=== PATIENT | male | born 1940 | race Caucasian/White ===

== ENCOUNTER → 2017-09-21 06:51 | Outpatient (CLI) | payer MEDICARE, SELFPAY ==
--- NOTE | 2017-09-21 11:32 | STRESSREP_ITS ---
Stress Test Report Exercise myocardial perfusion stress test. 76-year-old male with a history of chest pain. Stress protocol: Resting EKG demonstrates sinus bradycardia with a rate of 51 bpm normal intervals and noted resting blood pressure is 144/68 mmHg. The patient exercised according to regular Rahat protocol for total duration of 6 minutes the maximum heart rate attained was 121 bpm which was 84% of maximum predicted heart rate maximum workload of 7 metabolic equivalents. At rest there were no ST or T-wave changes noticed ischemia peak exercise upsloping ST changes were noted would not be the criteria for ischemia. The resting blood pressure is 144 /68 with a peak blood pressure 172/70 mmHg. No clinical angina was noted the test was terminated due to shortness of breath and leg fatigue. Myocardial perfusion protocol. 14.8 mCi of technetium 99m sestamibi was injected at rest. The patient exercised for regular Rahat protocol for 6 minutes attaining 84% of maximum predicted heart rate. At peak exercise 44.8 mCi of technetium 99m sestamibi was injected. Stress images were obtained stress and rest images were reconstructed and compared in the short axis vertical long and horizontal long axis. Gated images were also obtained. Perfusion SPECT analysis: Review of the stress images demonstrate normal uptake of tracer noted in all areas of the myocardium. The resting images similarly demonstrate normal uptake of tracer noted in all areas of the myocardium. No areas of reversibility are noted suggest ischemia no previous infarct is noted. Gated SPECT analysis: The gated ejection fraction is 71%. Conclusion: Normal exercise myocardial perfusion stress test. Good functional aerobic capacity. Preserved ejection fraction.
== END ==
PROVIDERS: Family Provider Internal Medicine; PCP Internal Medicine; Visit Provider Internal Medicine Cardiovascular Disease
DX: Z95.5 Presence of coronary angioplasty implant and graft (principal)
CPT/HCPCS: 78452; 93017; A9500; A4216

== ENCOUNTER → 2019-11-08 | Outpatient (CLI) | payer MEDICARE, SELFPAY ==
[2019-09-27 09:02] VITALS: BMI 30.7
[2019-11-08 10:17] LABS: Protein, Urine (Random) 155.4 mg/dL (<11.9); Protein:Creat Ratio 1904 mg/g CRE (0-200)
== END | disposition home or self-care (01) ==
LOC: LAB 09:28
PROVIDERS: PCP Internal Medicine; Referring Provider Internal Medicine Nephrology; Visit Provider Internal Medicine Nephrology
DX: R80.9 Proteinuria, unspecified (principal)
CPT/HCPCS: 82570; 84156

== ENCOUNTER 2019-11-14 06:20 | Day surgery (SDC) | payer MEDICARE, SELFPAY ==
[2019-09-27 09:02] VITALS: BMI 30.7
--- NOTE | 2019-11-08 09:40 | EKG12_ITS ---
Test Reason : PREOP Blood Pressure : / mmHG Vent. Rate : 057 BPM Atrial Rate : 057 BPM P-R Int : 194 ms QRS Dur : 092 ms QT Int : 420 ms P-R-T Axes : 030 002 044 degrees QTc Int : 408 ms Sinus bradycardia Left ventricular hypertrophy Abnormal ECG Confirmed by JAMIL ACOSTA, HEBERT ([id number]), video tape editor NEO LIGHT ([id number]) on 11/12/2019 1:47:21 PM Referred By: Guero Andrews Confirmed By:LEIGHTON NEGRON MD
[2019-11-08 09:56] LABS: Hemoglobin 13.6 g/dL (13.0-16.5); Mean Corp Hgb Conc 34.9 g/dL (32-36); Mean Corpuscular Hgb 33.4 pg (27.0-32.0); Mean Corpuscular Volume 95.8 fL (80-94); Mean Platelet Vol. 9.8 fl (6.2-12.0); Platelet Count 333 K/mm3 (150-450); RBC Distribution Width CV 12.2 % (11.6-14.6); RBC Distribution Width SD 42.2 fl (35.1-43.9); Red Blood Count 4.07 M/mm3 (4.6-6.2); White Blood Count 8.2 K/mm3 (4.4-11.0)
[2019-11-08 10:12] LABS: Prothrombin Time (Protime)PT. 13.1 SECONDS (11.7-14.9)
[2019-11-08 10:13] LABS: Partial Thromboplast Time 27.6 Seconds (24.1-36.2)
[2019-11-08 10:14] LABS: AST(SGOT) 23 U/L (15-37); Alanine Aminotransfer ALT/SGPT 34 U/L (16-61); Alkaline Phosphatase 63 U/L (45-117); Anion Gap 4 (5-15); BUN 11 mg/dL (7-18); BUN/Creat Ratio 12.7 RATIO (10-20); Calcium,Total 9.6 mg/dL (8.5-10.1); Chloride 98 mmol/L (98-107); Creatinine, Serum 0.86 mg/dL (0.70-1.30); EST Glomerular Filtration Rate 91 mL/min (>60); Est Glom Filt Rate - Afr Amer 110 mL/min (>60); Globulin 3.7 g/dL (2.2-4.2); Glucose 113 mg/dL (74-106); Potassium 4.4 mmol/L (3.5-5.1); Protein, Total 7.7 g/dL (6.4-8.2); Sodium Level 133 mmol/L (136-145)
[2019-11-14] VITALS (14 sets, daily range): BP systolic 127–158; BP diastolic 55–74; PULSE 50–63; RESP 16–18; TEMP 36.2–37.1; O2SAT 96–99; BMI 30.7
--- NOTE | 2019-11-14 | PROS_PTH ---
PATIENT: DEX BAEZ LOC: [facility] [place] U#:[id number] AGE/SX: 79/M ROOM: RE11/14/[address]: Dr. Guero Andrews MD : 1940 BED: DIS: 11/15/2019 SPEC #: [id number] RECD: 11/14/19 10:22 STATUS: EDD SANTIAGO #: [id number] MYNOR: 11/14/19 00:[address]: Guero Andrews DEPT: SURGICAL PATHOLOGY RECD BY: Eric Viveros ENTERED: 11/14/19 12:11 SP TYPE: TURP OTHR DR: Dr. Brittany Combs MD Tissues: Prostate, NOS Procedures: Surgery Specimen Level IV HEADER OPERATION: Cysto, TUR prostate, Olympus PRE-OP DIAGNOSIS: BPH with obstruction TISSUE SUBMITTED: Prostate chips MICROSCOPIC DIAGNOSIS Prostate, transurethral resection: Benign nodular hyperplasia, glandular and stromal types. Mild chronic inflammation. AM:harry 11/15/19 MICROSCOPIC DESCRIPTION Slides are reviewed. GROSS DESCRIPTION Received is one container labeled with the patient's name and designated prostate chips. The specimen consists of multiple irregular fragments of pink-aragon, rubbery, soft tissue that in aggregate weigh 17.3 gm and measure in aggregate 7 x 6 x 2 cm. Multiple blood clots are also noted. Jewelry Manager tissue is submitted in 12 cassettes. / SJ:harry 11/14/19 TC:3 CPT: 84541
[2019-11-14] MEDS: Lactated Ringers 1,000 ML 100 ML IV ×2 (07:25→09:30)
[2019-11-14] MEDS: Cefazolin 2 GM in 0.9% Normal Saline 100 ML IV (08:26)
--- NOTE | 2019-11-14 08:28 | HP.PCM_ITS ---
History of Present Illness Date of Admission: 11/14/19 Chief Complaint: BPH with obstruction The patient is a 79 year old male with a history of enlarged prostate has been having difficulty emptying his bladder on cystoscopy was found to have significant bilateral hypertrophy and obstruction of the prostate. He has been having difficulty with emptying the bladder going to the bathroom too often retaining urine reports having a very slow stream because of this we can proceed with a transurethral resection of the prostate to alleviate obstruction Past Medical History Past Medical History (Chronic Problems): Chronic Problems (Last Reviewed 09/27/19 @ 10:[address] Allan Mcpherson MD) Atherosclerotic heart disease of [place] coronary artery without angina pectoris (Chronic) History of coronary artery stent placement (Chronic 05/09/13) PCI-YOGESH-MID RCA w/ 3.5 x 16 mm Promus Stent 05/09/2013 PAF (paroxysmal atrial fibrillation) (Chronic) Essential (primary) hypertension (Chronic) Hyperlipidemia (Chronic) Medical History: Medical History (Last Reviewed 11/14/19 @ 08:[address] Guero Andrews MD) Atherosclerotic heart disease of [place] coronary artery without angina pectoris (Chronic) I25.10 PAF (paroxysmal atrial fibrillation) (Chronic) I48.0 Essential (primary) hypertension (Chronic) I10 Hyperlipidemia (Chronic) E78.5 BPH (benign prostatic hyperplasia) N40.0 ETOH abuse F10.10 GAVINO (obstructive sleep apnea) G47.33 Obesity (BMI 30.0-34.9) E66.9 Proteinuria R80.9 Seizures R56.9 Nonrheumatic mitral valve regurgitation (Resolved) I34.0 Overweight (BMI 25.0-29.9) (Resolved) E66.3 Allergies hydrocodone bitartrate [From Vicodin] Allergy (Verified 11/14/19 06:52) Itching chlorhexidine Adverse Reaction (Verified 11/14/19 06:52) Unknown Home Medications: Ambulatory Orders Medication Instructions Recorded Aspirin E.C. [Ecotrin] 81 mg PO DAILY@0800 05/07/13 Fenofibrate [Lofibra] 160 mg PO DAILY 05/07/13 Simvastatin [Zocor] 20 mg PO QHS 05/07/13 Ascorbic Acid [Vitamin C] 500 mg PO DAILY@0800 11/14/14 Multivitamins,Therapeutic 1 tab PO DAILY 11/14/14 [Multivitamin] Selenium 200 mcg PO DAILY 11/14/14 Vitamin B Complex 1 ea PO DAILY 11/14/14 Vitamin E 400 units PO DAILY 11/14/14 amlodipine 10 mg tablet 10 mg PO QDAY 09/12/17 cholecalciferol (vitamin D3) 25 1,000 unit PO QDAY 09/12/17 mcg (1,000 unit) tablet lacosamide 50 mg tablet 50 mg PO BID 09/12/17 metoprolol succinate 100 mg 100 mg PO QDAY 09/12/17 tablet,extended release 24 hr omega-3 fatty acids 1,000 mg See Rx Instructions .ROUTE 09/15/17 capsule .COMPLEX cap losartan 100 mg tablet 100 mg PO DAILY 09/26/18 hydrochlorothiazide 12.5 mg tablet 12.5 mg PO DAILY #90 tab 09/27/19 L.acidoph,Paracasei, B.lactis 1 ea PO DAILY 11/07/19 [Probiotic] Surgical History: Surgical History (Last Reviewed 09/27/19 @ 10:[address] Allan Mcpherson MD) History of coronary artery stent placement (Chronic) Onset Date: 05/09/13 Z95.5 PCI-YOGESH-MID RCA w/ 3.5 x 16 mm Promus Stent 05/09/2013 History of hernia repair Z98.890, Z87.19 x2 History of surgery on arm Z98.890 repair of arm fracture with plates History of transurethral resection of prostate Z98.890, Z90.79 Surgical History: - - PCI, TURP, LUE surgery s/p trauma, Umbilical hernia repair. Psychiatric History: No pertinent psych hx Smoking Status: Former smoker Tobacco Use: Non-smoker - *Family History Maternal Family History: Family History (Last Reviewed 09/27/19 @ 10:[address] Allan Mcpherson MD) Mother CVA (cerebral vascular accident) Father CAD (coronary artery disease) Myocardial infarction Brother Myocardial infarction CAD (coronary artery disease) Hypertension Sister CAD (coronary artery disease) Hypertension History Items: Heart Disease Paternal Family History: Family History (Last Reviewed 09/27/19 @ 10:[address] Allan Mcpherson MD) Mother CVA (cerebral vascular accident) Father CAD (coronary artery disease) Myocardial infarction Brother Myocardial infarction CAD (coronary artery disease) Hypertension Sister CAD (coronary artery disease) Hypertension History Items: Heart Disease Review of Systems Constitutional: Denies: Chills, Fever, Weight Change HEENT: Denies: Head Aches, Sinus Congestion, Sinus Drainage Cardiovascular: Denies: Chest Pain, Palpitations Respiratory: Denies: Cough, Shortness of breath at rest, Sputum production Gastrointestinal: Denies: Abdominal Pain, Nausea, Vomiting Genitourinary: Denies: Dysuria Musculoskeletal: Denies: Joint Pain, Joint Tenderness Skin: Denies: Rash, Wounds Neurological: Denies: Numbness, Tingling, Focal weakness Psychiatric: Denies: Anxiety, Depression, Homicidal Ideations, Suicidal Ideations Hematologic/ Lymphatic: Denies: Easy Bruising, Easy Bleeding VTE Information - Inpt Only VTE Present on Admission: No VTE Mechan Device Prophylaxis: SCD's - Physical Exam Vitals/I&O's: Vital Signs Temp Pulse Resp BP Pulse Ox 98.2 F 51 L 18 146/74 H 97 11/14/19 06:57 11/14/19 06:57 11/14/19 06:57 11/14/19 06:57 11/14/19 06:57 Oxygen Delivery Method Room Air Weight: 94.4 kg Body Mass Index (BMI) 30.7 General: Alert, Oriented x3, Cooperative HEENT: Atraumatic, PERRLA, EOMI, Normocephalic Neck: Supple, No JVD, Negative Carotid Bruits Lungs: Clear to auscultation, Normal air movement Cardiovascular: Regular rate, No murmurs Abdomen: Bowel Sounds Present, Soft, Non Tender Extremities: No edema, Capillary Refill Less than 3 Seconds Skin: No rashes, No breakdown Musculoskeletal: No Tenderness to Palpation of Joints or Extremities Neurological: Cranial nerves II-XII grossly intact Psych/Mental Status: Normal Affect, Appropriate Laboratory Results 11/13/19 09:32: COVID-19 (KEVON) Negative Current Medications Lactated Ringer's () 1,000 mls @ 100 mls/hr IV .Q10H PATTI Last Admin: 11/14/19 07:25 Dose: 100 mls/hr Documented by: Assessment/Plan All Active Problems (Last Reviewed 09/27/19 @ 10:[address] Allan Mcpherson MD) Nonrheumatic mitral valve regurgitation (Resolved) Overweight (BMI 25.0-29.9) (Resolved) 79-year-old male with a history of enlarged prostate plan to proceed with a transurethral resection of the prostate. All questions addressed explained the surgery to his in the patient in the preoperative area answer all the questions discussed how the surgery is done with expect afterwards.
--- NOTE | 2019-11-14 08:30 | PCM.DC.URO ---
Discharge Diet: No Restrictions, Light diet - advance as tolerated Discharge Activity: Return to Normal Activity, May Not Drive - for 2 days. Additional Activity Instructions:: Please be aware that pain medications may cause nausea. You should typically eat light foods as you take your pain medication. Pain medication may cause constipation, if this is a problem for you, please discuss with your doctor. Allergies/Adverse Reactions: Allergies hydrocodone bitartrate [From Vicodin] Allergy (Verified 11/14/19 06:52) Itching chlorhexidine Adverse Reaction (Verified 11/14/19 06:52) Unknown Medications to take at Discharge Aspirin E.C. [Ecotrin] 81 mg PO DAILY@0800 05/07/13 Fenofibrate [Lofibra] 160 mg PO DAILY 05/07/13 Simvastatin [Zocor] 20 mg PO QHS 05/07/13 Ascorbic Acid [Vitamin C] 500 mg PO DAILY@0800 11/14/14 Multivitamins,Therapeutic [Multivitamin] 1 tab PO DAILY 11/14/14 Selenium 200 mcg PO DAILY 11/14/14 Vitamin B Complex 1 ea PO DAILY 11/14/14 Vitamin E 400 units PO DAILY 11/14/14 amlodipine 10 mg tablet 10 mg PO QDAY 09/12/17 cholecalciferol (vitamin D3) 25 mcg (1,000 unit) tablet 1,000 unit PO QDAY 09/12/17 lacosamide 50 mg tablet 50 mg PO BID 09/12/17 metoprolol succinate 100 mg tablet,extended release 24 hr 100 mg PO QDAY 09/12/17 omega-3 fatty acids 1,000 mg capsule See Rx Instructions .ROUTE .COMPLEX cap 09/15/17 losartan 100 mg tablet 100 mg PO DAILY 09/26/18 hydrochlorothiazide 12.5 mg tablet 12.5 mg PO DAILY #90 tab 09/27/19 L.acidoph,Paracasei, B.lactis [Probiotic] 1 ea PO DAILY 11/07/19 Cephalexin [Keflex] 500 mg PO Q8 #15 cap 11/14/19 The following prescriptions were given: Cephalexin [Keflex] 500 mg PO Q8 #15 cap Transmission Status: Pending to [facility] Primary Care Physician: Brittany Combs MD [Primary Care Provider] - Test Results: Test results from this visit will be discussed in further detail at your follow-up appointment, if applicable. Please Follow Up With: Guero Andrews MD When: in 2 weeks, please call to make an appointment.
--- NOTE | 2019-11-14 09:21 | PCM.OPRPT ---
Report of Operation Date of Procedure: 11/14/19 Pre-Operative Diagnosis: BPH with obstruction Post-Operative Diagnosis: Same Surgery/Procedure Performed:: Transurethral section of the prostate Description of Surgical Findings:: 79-year-old male taken back to the operating room after smooth induction of general anesthesia he was placed in dorsolithotomy position. The penis and testicles were prepped and draped in usual sterile fashion I went into the bladder with a 24 [place] noncontinuous flow resectoscope with the Olympus bipolar system. On inspection it looks like he may have had a prior TURP a long time ago but he had significant regrowth from the right side and from the roof of the prostate causing significant obstruction. I then put in the resectoscope loop to use a medium size loop and started resecting the tissue by cutting through the tissue back into the loop small pieces of the time I worked my way from the floor to the right side of the prostate and all the way to the roof resecting all the tissue all the way back after this tissue was resected it came to the back to the sphincter the sphincter was intact but has a pulled back of the sphincter there was some flapping tissue of tissue that was coming in the way so this was very carefully resected at the apical tissue after this was done I did a flow test he had a wide open flow went back in and looked at the sphincter and the sphincter looked intact. This resection time was about an hour. I then used a cauterization setting and cauterize into the prostate until there was no bleeding and then I put a 24 [place] catheter into the bladder and continuous bladder irrigation the patient was taken back to PACU in good condition. Type of Anesthesia:: General Drains: 24 fr - Admit VTE Documentation VTE Present on Admission: No VTE Mechan Device Prophylaxis: SCD's
[2019-11-14] MEDS: 0.9% Normal Saline 1,000 ML 75 ML IV (12:02)
[2019-11-14] MEDS: Pantoprazole Sodium 40 MG Tablet PO (12:02)
[2019-11-14] MEDS: Docusate Sodium 100 MG Capsule PO ×2 (12:02→20:06)
[2019-11-14] MEDS: Acetaminophen 325 MG Tablet PO (19:58)
[2019-11-14] MEDS: Atorvastatin Calcium 10 MG Tablet PO (20:06)
[2019-11-15 00:03] VITALS: BP 120/53; PULSE 56; RESP 18; TEMP 36.9; O2SAT 98
[2019-11-15] MEDS: 0.9% Normal Saline 1,000 ML 75 ML IV (01:08)
[2019-11-15 05:17] VITALS: BP 143/63; PULSE 55; RESP 18; TEMP 36.8; O2SAT 99
[2019-11-15 08:15] VITALS: BP 155/58; PULSE 59; RESP 16; TEMP 36.8; O2SAT 98
[2019-11-15] MEDS: Ascorbic Acid 500 MG Tablet PO (08:22)
[2019-11-15] MEDS: Fenofibrate 145 MG Tablet PO (08:22)
[2019-11-15] MEDS: Docusate Sodium 100 MG Capsule PO (08:23)
[2019-11-15] MEDS: amLODIPine 10 MG Tablet PO (08:23)
[2019-11-15] MEDS: Pantoprazole Sodium 40 MG Tablet PO (08:23)
[2019-11-15] MEDS: Losartan Potassium 100 MG Tablet PO (08:23)
[2019-11-15] MEDS: hydroCHLOROthiazide 12.5mg 12.5 MG PO (08:23)
[2019-11-15 10:30] VITALS: BP 153/60; PULSE 59; RESP 16; TEMP 37.1; O2SAT 100
== END 2019-11-15 10:43 | disposition home or self-care (01) ==
LOC: SDC 06:21 → AC 06:22 → MS3 11-15 09:11
PROVIDERS: Anesthesiology; PCP Internal Medicine; Referring Provider Urology; Visit Provider Urology
PROC: (CPT 52630; principal; 2019-11-14 08:20)
DX: N40.1 Benign prostatic hyperplasia with lower urinary tract symptoms (principal); N13.8 Other obstructive and reflux uropathy; R31.0 Gross hematuria; R39.14 Feeling of incomplete bladder emptying; Z11.59 Encounter for screening for other viral diseases; I25.10 Atherosclerotic heart disease of native coronary artery without angina pectoris; I48.0 Paroxysmal atrial fibrillation; I10 Essential (primary) hypertension; E66.9 Obesity, unspecified; Z68.30 Body mass index [BMI] 30.0-30.9, adult; G47.33 Obstructive sleep apnea (adult) (pediatric); E78.00 Pure hypercholesterolemia, unspecified; Z95.5 Presence of coronary angioplasty implant and graft; Z79.82 Long term (current) use of aspirin; Z79.899 Other long term (current) drug therapy; Z87.891 Personal history of nicotine dependence
CPT/HCPCS: 52630; 36415; 80048; 80076; 85027; 85610; 85730; 87635; 88305; 93005; G2023; J7030; J7120; J2405; U0003

== ENCOUNTER 2020-03-06 03:38 | Emergency (ER) | payer MEDICARE, SELFPAY ==
[2019-11-14 11:38] VITALS: BMI 30.7
[2020-03-06 03:39] VITALS: BP 171/80; PULSE 73; RESP 18; TEMP 36.6; O2SAT 98; BMI 30.6
[2020-03-06 03:46] VITALS: BP 165/76; PULSE 70; RESP 16; O2SAT 99
--- NOTE | 2020-03-06 03:49 | EKG12_ITS ---
Test Reason : CP Blood Pressure : / mmHG Vent. Rate : 067 BPM Atrial Rate : 067 BPM P-R Int : 204 ms QRS Dur : 090 ms QT Int : 390 ms P-R-T Axes : 025 -09 018 degrees QTc Int : 412 ms Normal sinus rhythm Possible Left atrial enlargement Left ventricular hypertrophy Abnormal ECG Confirmed by DAVID ACOSTA, HERBERT ([id number]), city editor WU ARCINIEGA ([id number]) on 03/11/2020 1:01:13 PM Referred By: HOSSEIN Confirmed By:HERBERT HERNANDEZ MD
--- NOTE | 2020-03-06 03:50 | ED.VIS.GEN ---
History of Present Illness Chief Complaint: General Illness Informant: Patient, Family Onset: Today Narrative: Patient presents by EMS secondary to shaking and hypertension. Patient states his felt like he was shaking this morning. He thinks he likely was as well, but is not sure that it was enough to even visualize trembling. Right now he states he feels back to his baseline. He denies any recent changes in his medications. He does have history of seizure, first diagnosed in 2014. He has been on Keppra since that time. He is had no problems since his initial seizure. Her arrived at bedside she states that she woke to hear patient making chewing sounds. This was followed by tonic-clonic seizure activity in both upper extremities. She tried to help him sit up. She then describes a postictal period. She states the patient is currently on Vimpat for seizures. He has not seen a neurologist in quite some time. - Past Medical History (1) Seizures Status: Chronic (2) Atherosclerotic heart disease of [place] coronary artery without angina pectoris Status: Chronic (3) Essential (primary) hypertension Status: Chronic (4) History of coronary artery stent placement Status: Chronic Comment: PCI-YOGESH-MID RCA w/ 3.5 x 16 mm Promus Stent 05/09/2013 (5) Hyperlipidemia Status: Chronic (6) PAF (paroxysmal atrial fibrillation) Status: Chronic Past Medical History - Allergies and Home Meds Allergies/Adverse Reactions: Allergies hydrocodone bitartrate [From Vicodin] Allergy (Verified 03/06/20 03:42) Itching chlorhexidine Adverse Reaction (Verified 03/06/20 03:42) Unknown Primary Care Physician: Brittany Combs MD [Primary Care Provider] - Marlo Smith MD [STAFF PHYSICIAN] - As soon as possible Prior records reviewed: Yes Surgical History: - - PCI, TURP, LUE surgery s/p trauma, Umbilical hernia repair. Lives: Spouse/ Significant Other Smoking Status: Never smoker - Family History Maternal Family History: Family History (Last Reviewed 09/27/19 @ 10:[address] Allan Mcpherson MD) Mother CVA (cerebral vascular accident) Father CAD (coronary artery disease) Myocardial infarction Brother Myocardial infarction CAD (coronary artery disease) Hypertension Sister CAD (coronary artery disease) Hypertension Family History: Reports: Heart Disease Paternal Family History: Family History (Last Reviewed 09/27/19 @ 10:[address] Allan Mcpherson MD) Mother CVA (cerebral vascular accident) Father CAD (coronary artery disease) Myocardial infarction Brother Myocardial infarction CAD (coronary artery disease) Hypertension Sister CAD (coronary artery disease) Hypertension Family History: Reports: Heart Disease Review of Systems General: Denies: Chills, Fever Eyes: Denies: Visual changes - bilaterally ENT: Denies: Rhinorrhea, Sore throat Cardiovascular: Denies: Chest pain, Palpitations Respiratory: Denies: Dyspnea, Cough Gastrointestinal: Denies: Abdominal pain, Nausea, Vomiting, Diarrhea Genitourinary: Denies: Dysuria Musculoskeletal: Denies: Swelling, Extremity Pain Skin: Denies: Rash Neurological: Denies: Headache Hematologic: Denies: Easy bruising, Easy bleeding Allergy: Denies: Uticaria Physical Exam Vital Signs/Narrative: Vital Signs Temp Pulse Resp BP Pulse Ox 03/06/20 03:46 70 16 165/76 H 99 03/06/20 03:39 97.8 F 73 18 171/80 H 98 Inital Vital Signs reviewed: Yes General: Well nourished, Well developed Head: Normocephalic ENT: Moist mucous membranes Neck: Supple Cardiovascular: Regular rate, Regular rhythm Respiratory: No distress, CTA bilaterally Abdomen: Soft, Nontender, Normal bowel sounds Extremities: Nontender Skin: Normal color Neurological: Alert, Oriented x3, Normal Strength, Normal Sensation Psychological: Normal affect Diagnostic/Tx/Re-eval Impressions Brain CT 03/06/20 04:18 IMPRESSION: Chronic involutional changes of the brain. Disproportionate enlargement of the ventricles, consistent with central atrophy or normal pressure hydrocephalus. The finding is stable. No demonstrated acute intracranial process. Electronically Signed: Jeffery Funes MD at 4:58 EDT , Service support , 03/06/20 04:18 Brain/Head without Contrast [CT] Stat Laboratory Results 03/06/20 03/06/20 03/06/20 03:45 03:45 03:55 WBC 7.9 RBC 4.65 Hgb 15.1 Hct 42.9 MCV 92.3 MCH 32.5 H MCHC 35.2 RDW Std Deviation 40.9 RDW Coeff of Angy 12.0 Plt Count 297 MPV 9.4 Immature Gran % (Auto) 0.400 Neut % (Auto) 70.3 H Lymph % (Auto) 16.1 L Ceiba % (Auto) 10.4 H Eos % (Auto) 2.2 Baso % (Auto) 0.6 Absolute Neuts (auto) 5.5 Absolute Lymphs (auto) 1.26 Nucleated RBC % 0 Sodium 131 L Potassium 4.0 Chloride 96 L Carbon Dioxide 27.0 Anion Gap 8 BUN 15 Creatinine 0.96 Estim Creat Clear Calc 64.42 Est GFR (MDRD) Af Amer 97 Est GFR (MDRD) Non-Af 80 BUN/Creatinine Ratio 15.6 Glucose 122 H Calcium 9.3 Urine Color Yellow Urine Clarity Clear Urine pH 7.0 Ur Specific [place] 1.015 Urine Protein 100 H Urine Glucose (UA) Normal Urine Ketones Negative Urine Occult Blood 10 H Urine Nitrite Negative Urine Bilirubin Negative Urine Urobilinogen Normal Ur Leukocyte Esterase Negative Urine RBC 0-5 SEEN Urine WBC 0 SEEN Ur Squamous Epith Cells 0 SEEN Urine Bacteria 0 SEEN Urine Mucus 0 SEEN - EKG Initial EKG Interpretation: Sinus Rhythm - Sinus at 67 with no acute ischemia. - Medical Decision Making After patient's arrived she did confirm patient had what sounds like another seizure tonight. He had typical postictal period. At this time he is completely back to baseline. Work-up was unremarkable. He will continue his current seizure medication and I will refer him to Dr. Smith for local neurology outpatient follow-up. It is noted that the patient's sodium is slightly low. When compared to prior values this appears to be near his baseline. He was given IV fluids here. ED Disposition - Plan for ED Patient: Disposition: Home or Assisted Living Diagnosis: Seizure Instructions: ED Seizure Recurrent Adult Referrals: Brittany Combs MD [Primary Care Provider] - Marlo Smith MD [STAFF PHYSICIAN] - As soon as possible
--- NOTE | 2020-03-06 03:50 | ED.RN ---
RN CALLED FOR EKG, PULLED OLD EKGS FOR
[2020-03-06 04:04] LABS: Bacteria 0 SEEN /hpf (None Seen); Mucous, Urine 0 SEEN /hpf (<or=2+); Squamous Epithelial Cells - UA 0 SEEN /hpf (0-5); White Blood Cells 0 SEEN /hpf (0-5)
[2020-03-06 04:07] LABS: Color, Urine Yellow (Yellow); Glucose, Dipstick Normal (Normal); Ketone-Dipstick Negative (Negative); Leukocyte Esterase-Dipstick Negative /ul (Negative); Nitrite-Dipstick Negative (Negative); Occult Blood-Urine 10 /ul (Negative); Protein-Dipstick 100 mg/dl (Negative); Specific Gravity, Urine 1.015 (1.002-1.030); Urine Bilirubin Dipstick Negative (Negative); Urine Clarity Clear (Clear); Urine Urobilinogen Normal (Normal)
[2020-03-06 04:07] LABS: Absolute Lymphocyte Count 1.26 X10^3/uL (0.83-4.51); Absolute Neutrophil Count 5.5 X10^3/uL (2.0-7.7); Basophil# 0.05 X10^3/uL; Basophil% 0.6 % (0-1); Eosinophil# 0.17 X10^3/uL; Eosinophils% 2.2 % (0-5); Hematocrit 42.9 % (40-54); Hemoglobin 15.1 g/dL (13.0-16.5); Lymphocyte # 1.26 X10^3/ul (4.0); Lymphocyte % 16.1 % (19-41); Mean Corp Hgb Conc 35.2 g/dL (32-36); Mean Corpuscular Hgb 32.5 pg (27.0-32.0); Mean Corpuscular Volume 92.3 fL (80-94); Mean Platelet Vol. 9.4 fl (6.2-12.0); Monocyte# 0.82 X10^3/uL; Monocyte% 10.4 % (0-10); NRBC Flagged by Analyzer 0 % (0-5); Neutrophil # 5.52 X10^3/uL (2.7-7.7); Neutrophil % 70.3 % (47-70); Platelet Count 297 K/mm3 (150-450); RBC Distribution Width SD 40.9 fl (35.1-43.9); Red Blood Count 4.65 M/mm3 (4.6-6.2); White Blood Count 7.9 K/mm3 (4.4-11.0)
[2020-03-06] MEDS: 0.9% Normal Saline 1,000 ML 150 ML IV (04:07)
[2020-03-06 04:13] LABS: Anion Gap 8 (5-15); BUN 15 mg/dL (7-18); BUN/Creat Ratio 15.6 RATIO (10-20); Calcium,Total 9.3 mg/dL (8.5-10.1); Chloride 96 mmol/L (98-107); Creatinine, Serum 0.96 mg/dL (0.70-1.30); EST Glomerular Filtration Rate 80 mL/min (>60); Est Glom Filt Rate - Afr Amer 97 mL/min (>60); Estimated Creatinine Clearance 64.42 ml/min; Glucose 122 mg/dL (74-106); Sodium Level 131 mmol/L (136-145)
[2020-03-06 04:14] LABS: Red Blood Cells-Urine 0-5 SEEN /hpf (0-5)
--- NOTE | 2020-03-06 04:18 | CT_ITS ---
STUDY: CT BRAIN WITHOUT CONTRAST REASON FOR EXAM: Male, 79 years old. SEIZURE. Pt has hx of seizures. afib, HTN, HLD and heart stents RADIATION DOSAGE (If Supplied By Facility): CTDIvol = ( 44.99 ) mGy, DLP = ( 863.60 ) mGycm TECHNIQUE: Transaxial CT imaging of the brain was performed without administration of intravenous contrast material. Individualized dose optimization techniques were used for this CT. COMPARISON: CT scan brain 11/14/2014. FINDINGS: Normal soft tissue structures. Normal calvarium. There is mild diffuse cerebral atrophy. There is disproportionate enlargement of the ventricles, similar to previous exam. This may be due to central atrophy or normal pressure hydrocephalus. There are areas of decreased attenuation within the white matter tracts of the supratentorial brain, consistent with microvascular disease changes. Normal basal ganglia and thalami. Normal brainstem. There is mild cerebellar atrophy. There is atherosclerotic calcification of the cavernous carotid arteries. There is no intracranial hemorrhage. There are no findings of an acute ischemic infarction. Normal visualized paranasal sinuses. CT/Brain/Head without Contrast IMPRESSION: Chronic involutional changes of the brain. Disproportionate enlargement of the ventricles, consistent with central atrophy or normal pressure hydrocephalus. The finding is stable. No demonstrated acute intracranial process. Electronically Signed: Jeffery Funes MD at 4:58 EDT , Service support ,
[2020-03-06 05:14] VITALS: BP 162/73; PULSE 70; RESP 16; O2SAT 98
== END 2020-03-06 05:22 | disposition home or self-care (01) ==
PROVIDERS: Emergency Provider Emergency Medicine; PCP Internal Medicine
DX: R56.9 Unspecified convulsions (principal); I48.0 Paroxysmal atrial fibrillation; I25.10 Atherosclerotic heart disease of native coronary artery without angina pectoris; I10 Essential (primary) hypertension; E78.5 Hyperlipidemia, unspecified; Z95.5 Presence of coronary angioplasty implant and graft; Z79.899 Other long term (current) drug therapy
CPT/HCPCS: 70450; 80048; 81001; 85025; 93005; 96360; 99285; J7030; J7040; A4216

== ENCOUNTER → 2020-04-22 08:40 | Outpatient (CLI) | payer MEDICARE, SELFPAY ==
--- NOTE | 2020-04-22 08:51 | CDU_ITS ---
Reason For Study: Carotid artery stenosis Rt. Velocities/BP Lt. Velocities/BP Prox CCA 57.8/6.9 cm/sec. Prox CCA 101.1/12.6 cm/sec. Mid CCA 64.3/10.8 cm/sec. Mid CCA 79/6.5 cm/sec. Dist CCA 70.8/12.1 cm/sec. Dist CCA 67.9/9 cm/sec. Prox ICA 59.7/5.8 cm/sec. Prox ICA 54.2/9.1 cm/sec. Mid ICA 60.8/13.5 cm/sec. Mid ICA 56/11.6 cm/sec. Dist ICA 64.1/12.4 cm/sec. Dist ICA 62.6/16.3 cm/sec. Rt. ICA/CCA = 1.0. Lt. ICA/CCA = 0.8. Prox ECA 91.5/3.6 cm/sec. Prox ECA 88.8/9 cm/sec. Rt. Vert. 29.1/6.4 cm/sec. Lt. Vert. 40.9/7.8 cm/sec. Right Extracranial There is homogeneous, smooth atherosclerotic plaque noted in the right common carotid artery. There is heterogeneous, irregular atherosclerotic plaque noted in the right internal carotid artery. There is intimal thickening but no significant atherosclerotic plaque noted in the right external carotid artery. Antegrade flow is noted in the right vertebral artery. Left Extracranial There is homogeneous, smooth atherosclerotic plaque noted in the left common carotid artery. There is heterogeneous, irregular atherosclerotic plaque noted in the left internal carotid artery. There is intimal thickening but no significant atherosclerotic plaque noted in the left external carotid artery. Antegrade flow is noted in the left vertebral artery. Procedure Carotid Duplex [id number]. This is a Carotid Duplex examination using B-mode, color flow and specral Doppler. Exam performed in department. Interpretation Summary Mild (<50%) stenosis right extracranial internal carotid. Mild (<50%) stenosis left extracranial internal carotid. Flow within the vertebral arteries is antegrade bilaterally. Ordering Physician: Brittany Combs Referring Physician: Brittany Combs Performed By: Susan Lo RVT
== END ==
PROVIDERS: PCP Internal Medicine; Referring Provider Internal Medicine; Visit Provider Internal Medicine
DX: I65.23 Occlusion and stenosis of bilateral carotid arteries (principal)
CPT/HCPCS: 93880

== ENCOUNTER → 2020-06-30 05:58 | Outpatient (CLI) | payer MEDICARE, SELFPAY ==
[2020-05-27 08:22] VITALS: BMI 30.8
--- NOTE | 2020-06-30 08:50 | TELEMED_ITS ---
[facility] Tele[facility] has confirmed receipt of a request for visit. This document confirms receipt of the order initiating the consult. To find the results of the consultation, please view the patient's reports for the scanned Telemed Consult.
== END ==
PROVIDERS: PCP Internal Medicine; Referring Provider Psychiatry & Neurology Neurology; Visit Provider Psychiatry & Neurology Neurology
DX: G40.909 Epilepsy, unspecified, not intractable, without status epilepticus (principal); E87.1 Hypo-osmolality and hyponatremia; R73.9 Hyperglycemia, unspecified
CPT/HCPCS: 95819

== ENCOUNTER → 2020-08-12 07:33 | Outpatient (CLI) | payer MEDICARE, SELFPAY ==
[2020-05-27 08:22] VITALS: BMI 30.8
[2020-08-12 08:16] LABS: Hemoglobin A1c 5.1 % (3.8-5.6)
[2020-08-12 08:24] LABS: Anion Gap 4 (5-15); BUN 14 mg/dL (7-18); BUN/Creat Ratio 15.4 RATIO (10-20); Chloride 101 mmol/L (98-107); Creatinine, Serum 0.91 mg/dL (0.70-1.30); Glucose 106 mg/dL (74-106); Potassium 4.4 mmol/L (3.5-5.1); Sodium Level 134 mmol/L (136-145)
== END ==
PROVIDERS: PCP Internal Medicine; Referring Provider Psychiatry & Neurology Neurology; Visit Provider Psychiatry & Neurology Neurology
DX: E87.1 Hypo-osmolality and hyponatremia (principal); R73.9 Hyperglycemia, unspecified
CPT/HCPCS: 36415; 80047; 83036

== ENCOUNTER → 2020-12-10 10:29 | Outpatient (CLI) | payer MEDICARE, SELFPAY ==
[2020-09-30 08:27] VITALS: BMI 30.2
== END ==
PROVIDERS: PCP Internal Medicine; Referring Provider Internal Medicine Cardiovascular Disease; Visit Provider Internal Medicine Cardiovascular Disease
DX: I48.0 Paroxysmal atrial fibrillation (principal); G47.33 Obstructive sleep apnea (adult) (pediatric); R00.1 Bradycardia, unspecified
CPT/HCPCS: 93225; 93226

== ENCOUNTER 2021-07-07 05:59 | Emergency (ER) | payer MEDICARE, SELFPAY ==
[2021-07-07 06:00] VITALS: BP 182/66; PULSE 65; RESP 18; TEMP 36.8; O2SAT 96; BMI 30.1
--- NOTE | 2021-07-07 06:56 | CT_ITS ---
STUDY: CT ABDOMEN AND PELVIS WITH CONTRAST REASON FOR EXAM: Male, 80 years old. One-day history of diffuse abdominal pain. Prior umbilical hernia repair. RADIATION DOSAGE (If Supplied By Facility): CTDIvol = ( 16.29 ) mGy, DLP = ( 1196.91 ) mGycm TECHNIQUE: Transaxial images were obtained from the dome of the diaphragm to the symphysis pubis with oral contrast. Oral and IV Gastrografin and 100mL Isovue-370 was administered. Sagittal and coronal images were reconstructed. Individualized dose optimization techniques were used for this CT. COMPARISON: None. FINDINGS: Minimal degree of increased linear markings at the lung bases suggestive of underlying atelectasis and/or mild scarring. Coronary artery calcification. Calcification of the mitral valve annulus. There is decreased attenuation of the liver consistent with steatosis. There is a 1.3 cm cyst in the medial aspect of the left lobe of the liver. There is a solitary gallstone in the neck of the gallbladder. This measures 1.4 cm. Minimal thickening of the wall of the gallbladder. Correlation with ultrasound is recommended for further evaluation.. Normal spleen. Normal pancreas. Normal bilateral adrenal glands. Scattered small right renal cyst. Scattered small left renal cysts. A dominant cyst is seen along the inferior pole of the left kidney measuring 4.1 cm x 4.2 cm. Mild degree of nonspecific bilateral perinephric stranding. There is a small hiatal hernia. Normal small intestine. There are multiple colonic diverticula consistent with diverticulosis. The appendix is visualized and appears normal. There is scattered atherosclerotic calcification of the abdominal aorta and its major visceral branches, without a demonstrated aneurysm. Normal inferior vena cava. Normal retroperitoneum. Normal urinary bladder. There is heterogeneous enlargement of the prostate. This measures 4.3 cm x 5.4 cm. Calcifications are seen within the prostate. The prostate causes indentation at the bladder base. There is a left-sided inguinal hernia containing adipose tissue. There are degenerative changes of the visualized lumbar spine. CT/Abdomen/Pelvis WITH Contrast IMPRESSION: Solitary gallstone in the neck of the gallbladder with mild gallbladder wall thickening. Correlation with ultrasound is recommended for further evaluation. Bilateral renal cysts. Heterogeneous enlargement of the prostate with indentation of the bladder base. Small left inguinal hernia. Electronically Signed: Dima Eckert MD at 9:23 EST ,
--- NOTE | 2021-07-07 07:05 | EDS_ITS ---
HPI History of Present Illness Chief Complaint: Weakness Informant: patient Onset/Context/Timing Onset: Yesterday Context: Gradual Onset Timing: Continuous Quality: Cramping Location: Abdomen Worsened by: Nothing Relieved by: Nothing Narrative Narrative: Patient presents with abdominal cramping that began yesterday. Patient states it is diffuse across his abdomen. Patient states that he has a history of seizure disorder and has been taking Vimpat for that. Patient states he was also started on lamotrigine and his neurologist is planning on switching him off the Vimpat and keeping him on the lamotrigine. Patient states that he has been having some decreased mobility and a shuffling gait. Patient also states he has decreased stamina. Patient also admits to some cold sensations in his hands and feet. Patient admits to some subjective chills. Patient also admits to some nausea but denies any vomiting. [facility] Medical History Atherosclerotic heart disease of [place] coronary artery without angina pectoris BPH (benign prostatic hyperplasia) Essential (primary) hypertension ETOH abuse Hyperlipidemia Nonrheumatic mitral valve regurgitation Obesity (BMI 30.0-34.9) GAVINO (obstructive sleep apnea) Overweight (BMI 25.0-29.9) PAF (paroxysmal atrial fibrillation) Proteinuria Seizures Home Medications fenofibrate 160 mg PO DAILY 05/07/13 [History Last Taken 05/07/13] simvastatin 20 mg PO QHS 05/07/13 [History Last Taken 05/07/13] ascorbic acid (vitamin C) 500 mg PO DAILY@0800 11/14/14 [History Last Taken Unknown] multivitamin with folic acid 1 tab PO DAILY 11/14/14 [History Last Taken Unknown] selenium 200 mcg PO DAILY 11/14/14 [History Last Taken Unknown] vitamin B complex 1 ea PO DAILY 11/14/14 [History Last Taken Unknown] vitamin E (dl, acetate) 400 units PO DAILY 11/14/14 [History Last Taken Unknown] amlodipine 10 mg tablet 10 mg PO QDAY 09/12/17 [History Last Taken 11/14/19 05:30] cholecalciferol (vitamin D3) 25 mcg (1,000 unit) tablet 1,000 unit PO QDAY 09/12/17 [History Last Taken Unknown] omega-3 fatty acids 1,000 mg capsule See Rx Instructions .ROUTE .COMPLEX cap 09/15/17 [History Last Taken 11/08/19] losartan 100 mg tablet 100 mg PO DAILY 09/26/18 [History Last Taken Unknown] L.acidoph, paracasei,B. lactis 1 ea PO DAILY 11/07/19 [History Last Taken Unknown] aspirin 81 mg tablet,delayed release 81 mg PO DAILY 05/27/20 [History Last Taken Unknown] furosemide 20 mg tablet 20 mg PO DAILY tab 05/27/20 [History Last Taken Unknown] metoprolol succinate 100 mg tablet,extended release 24 hr 50 mg PO QDAY tab 12/09/20 [History Last Taken Unknown] amoxicillin 500 mg capsule 500 mg PO TID 06/23/21 [History Last Taken Unknown] lacosamide 100 mg tablet See Rx Instructions .ROUTE .COMPLEX #0 tab 06/23/21 [Rx Last Taken Unknown] lamotrigine 25 mg tablet See Rx Instructions .ROUTE .COMPLEX #360 tab 06/23/21 [Rx Last Taken Unknown] spironolactone 25 mg tablet 25 mg PO DAILY 06/23/21 [History Last Taken Unknown] Allergy/AdvReac Type Severity Reaction Status Date / Time hydrocodone bitartrate Allergy Itching Verified 07/07/21 06:03 [From Vicodin] chlorhexidine AdvReac Unknown Verified 07/07/21 06:03 Family History Mother CVA (cerebral vascular accident) Father CAD (coronary artery disease) Hx CABG Myocardial infarction Brother Myocardial infarction CAD (coronary artery disease) Hypertension Sister CAD (coronary artery disease) Hx CABG Hypertension Surgical History History of coronary artery stent placement (05/09/13) History of hernia repair History of surgery on arm History of transurethral resection of prostate Social History Smoking Status: Never smoker Smokeless tobacco user: chewing tobacco Electronic Cigarette Use: not used second hand exposure: Yes alcohol intake: former year quit: 2014 substance use type: does not use caffeine: Yes Type: carbonated beverages 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 do you feel safe at home: Yes ROS ROS ED Constitutional Constitutional ED: Reports fever(s); Denies chills Eyes Eyes: Denies blurry vision or change in vision ENT ENT ED: Denies rhinorrhea or sore throat Cardiovascular Cardiovascular: Denies chest pain or palpitations Respiratory/Chest Respiratory/Chest: Denies cough or dyspnea Gastrointestinal Gastrointestinal: Reports abdominal pain and nausea; Denies vomiting Genitourinary Genitourinary ED: Denies dysuria or hematuria Musculoskeletal Musculoskeletal: Denies back pain or neck pain Integumentary Denies abscess or rash Neurologic Neurologic: Denies headache(s) or weakness Allergic/Immunologic Allergic/Immunologic ED: Denies mouth swelling or urticaria EXAM Physical Exam Const Vital Signs: 07/07/21 06:00 07/07/21 06:06 Temperature 98.2 F Temperature Source Oral Pulse Rate 65 Respiratory Rate 18 Respiratory Effort Normal Respiratory Pattern Normal Blood Pressure 182/66 H Blood Pressure Mean 104 Pulse Ox 96 Oxygen Delivery Method Room Air Positive well nourished and well developed General Appearance ED: well developed HEENT Reports moist mucous membranes Neck supple and no JVD Resp normal respiratory effort and clear to auscultation bilaterally Cardio regular rate, regular rhythm and no murmurs GI normal to inspection, nondistended, normoactive bowel sounds Palpation: soft and tender other (There is mild diffuse tenderness.); Negative for guarding or rebound tenderness present Extremity normal to inspection General Extremety ED: Negative for edema or tenderness General Extremity: Negative for edema Neuro oriented x3, CN's II-XII intact bilaterally and no sensory deficits noted Sensorium / Orientation: alert Motor Exam: strength 5/5 throughout Psych mental status grossly normal Skin no rashes or lesions noted MDM MDM MDM Narrative Medical decision making narrative: Patient was given IV fluids. CBC, comprehensive metabolic profile, lipase, and urinalysis were obtained and are pending. COVID-19 rapid antigen was obtained and is pending. Care of the patient was turned over to the oncoming physician. Discharge Plan Triage Chief Complaint: Weakness ED Provider: Mckay Perdomo Dx/Rx/DC Orders Prescriptions: No Action omega-3 fatty acids 1,000 mg capsule See Rx Instructions .ROUTE .COMPLEX RF: 0 amlodipine 10 mg tablet 10 mg PO QDAY RF: 0 cholecalciferol (vitamin D3) 1,000 unit tablet 1,000 unit PO QDAY RF: 0 losartan 100 mg tablet 100 mg PO DAILY RF: 0 furosemide 20 mg tablet 20 mg PO DAILY RF: 0 aspirin [Adult Aspirin Regimen] 81 mg tablet,delayed release (DR/EC) 81 mg PO DAILY RF: 0 amoxicillin 500 mg capsule 500 mg PO TID RF: 0 spironolactone 25 mg tablet 25 mg PO DAILY RF: 0 lamotrigine 25 mg tablet See Rx Instructions .ROUTE .COMPLEX Qty: 360 RF: 0 Vimpat 100 mg tablet See Rx Instructions .ROUTE .COMPLEX Qty: 0 RF: 0 simvastatin 20 MG tablet 20 mg PO QHS RF: 0 fenofibrate 160 MG tablet 160 mg PO DAILY RF: 0 ascorbic acid (vitamin C) 500 MG tablet 500 mg PO DAILY@0800 RF: 0 selenium 100 MCG tablet 200 mcg PO DAILY RF: 0 vitamin B complex 1 EACH capsule 1 ea PO DAILY RF: 0 vitamin E (dl, acetate) 400 UNITS capsule 400 units PO DAILY RF: 0 multivitamin with folic acid 1 TABLET tablet 1 tab PO DAILY RF: 0 L.acidoph, paracasei,B. lactis 1 EACH capsule 1 ea PO DAILY RF: 0 metoprolol succinate 100 mg tablet extended release 24 hr 50 mg PO QDAY RF: 0 Primary Care Provider: Brittany Combs
[2021-07-07 07:22] LABS: Bacteria 0 SEEN /hpf (None Seen); Mucous, Urine 0 SEEN /hpf (<or=2+); Squamous Epithelial Cells - UA 0 SEEN /hpf (0-5); White Blood Cells 0 SEEN /hpf (0-5)
[2021-07-07 07:27] LABS: Absolute Lymphocyte Count 0.42 X10^3/uL (0.83-4.51); Absolute Neutrophil Count 10.7 X10^3/uL (2.0-7.7); Basophil# 0.03 X10^3/uL; Basophil% 0.2 % (0-1); Hematocrit 37.2 % (40-54); Hemoglobin 13.3 g/dL (13.0-16.5); Lymphocyte # 0.42 X10^3/ul (0.83-4.51); Lymphocyte % 3.3 % (19-41); Mean Corp Hgb Conc 35.8 g/dL (32-36); Mean Corpuscular Hgb 33.8 pg (27.0-32.0); Mean Corpuscular Volume 94.7 fL (80-94); Mean Platelet Vol. 9.4 fl (6.2-12.0); Monocyte# 1.47 X10^3/uL; Monocyte% 11.5 % (0-10); NRBC Flagged by Analyzer 0 % (0-5); Neutrophil # 10.73 X10^3/uL (2.7-7.7); Neutrophil % 84.3 % (47-70); POSITIVE DIFFERENTIAL YES; Platelet Count 275 K/mm3 (150-450); RBC Distribution Width CV 11.8 % (11.6-14.6); RBC Distribution Width SD 41.1 fl (35.1-43.9); Red Blood Count 3.93 M/mm3 (4.6-6.2); White Blood Count 12.7 K/mm3 (4.4-11.0)
[2021-07-07 07:32] LABS: Differential Indicated SCAN CRITERIA MET
[2021-07-07 07:37] LABS: Color, Urine Yellow (Yellow); Glucose, Dipstick Normal (Normal); Ketone-Dipstick Negative (Negative); Leukocyte Esterase-Dipstick Negative /ul (Negative); Nitrite-Dipstick Negative (Negative); Occult Blood-Urine 10 /ul (Negative); Protein-Dipstick 100 mg/dl (Negative); Urine Bilirubin Dipstick Negative (Negative); Urine Clarity Clear (Clear); Urine Urobilinogen Normal (Normal)
[2021-07-07 07:42] LABS: ALB/GLOB Ratio 0.9 RATIO (0.9-2.4); AST(SGOT) 21 U/L (15-37); Alanine Aminotransfer ALT/SGPT 41 U/L (16-61); Albumin, Serum 3.5 g/dL (3.2-5.0); Alkaline Phosphatase 65 U/L (45-117); Anion Gap 6 (5-15); BUN 21 mg/dL (7-18); BUN/Creat Ratio 23.1 RATIO (10-20); Calcium,Total 9.6 mg/dL (8.5-10.1); Chloride 98 mmol/L (98-107); Creatinine, Serum 0.91 mg/dL (0.70-1.30); EST Glomerular Filtration Rate 85 mL/min (>60); Est Glom Filt Rate - Afr Amer 103 mL/min (>60); Estimated Creatinine Clearance 66.85 ml/min; Globulin 3.9 g/dL (2.2-4.2); Glucose 151 mg/dL (74-106); Lipase 141 U/L (73-393); Protein, Total 7.4 g/dL (6.4-8.2); Sodium Level 132 mmol/L (136-145)
[2021-07-07] MEDS: 0.9% Normal Saline 1,000 ML 1000 ML IV (07:44)
[2021-07-07 08:01] LABS: Red Blood Cells-Urine 0-5 SEEN /hpf (0-5)
[2021-07-07 08:10] VITALS: BP 154/65; PULSE 57; O2SAT 97
--- NOTE | 2021-07-07 09:33 | US_ITS ---
STUDY: ABDOMINAL ULTRASOUND - RIGHT UPPER QUADRANT REASON FOR VISIT: Male, 80 years old PAIN TECHNIQUE: Ultrasound evaluation of the right upper quadrant was performed with real-time and static more[place]-scale imaging. TECHNICAL QUALITY: Limited. Examination limited due to a combination of factors including obesity and bowel gas. COMPARISON: None. FINDINGS: Liver: The liver measures 16.5 cm. There is increased echogenicity consistent with fatty infiltration. The bile ducts are within normal limits. There is hepatic color flow. The direction of portal flow is hepatopetal. There is no demonstrated mass lesion. Gallbladder: The gallbladder is distended. The gallbladder wall is thickened and measures 5.9 mm. There is a negative sonographic Campa''s sign. There is no pericholecystic fluid. Sludge is seen within the gallbladder lumen. Findings suggestive of a gallstone in the neck of the gallbladder. Common Bile Duct (C.B.D.): The common bile duct measures 4.4 mm. Pancreas: There is nonvisualization of the pancreas due to overlying bowel gas. Right Kidney: Normal size of the right kidney. The right kidney measures 14.2 cm x 7.2 cm x 7.6 cm. Normal renal cortex. The right cortex measures 1.7 cm. There is no demonstrated renal mass or cyst. There is no right hydronephrosis. US/Gallbladder IMPRESSION: Diffuse fatty infiltration of the liver. Distended gallbladder and thickened wall. Gallstone. Electronically Signed: Dima Eckert MD at 12:04 EST ,
[2021-07-07 10:00] VITALS: BP 165/72; PULSE 60; O2SAT 94
[2021-07-07 13:10] VITALS: BP 112/75; PULSE 55; RESP 18; O2SAT 98
--- NOTE | 2021-07-07 14:10 | PCM.HP.STD ---
HPI - General HPI Narrative DEX BAEZ, is a 80 M who presents to [facility] with complaints of weakness, imbalance, and abdominal cramping. He states that his abdominal cramping began approximately 2200 yesterday. This complaint is rather diffuse and the patient states that he feels like he would receive relief with either a large bowel movement or vomiting, but he denies nausea. He also denies any fevers or chills. He has not had experienced episodes like this before. Patient has been in the emergency department for 7 hours and states that his discomfort has receded to a level of 2 or 3 out of 10 in the absence of pain medication. ER work-up is notable for a CBC that demonstrates a mild leukocytosis of 12.7, CT imaging that showed a distended gallbladder with mild gallbladder wall thickening and a solitary stone in the neck of the gallbladder, as well as ultrasound which confirmed the gallbladder wall thickening, but did not find evidence of ductal dilation or pericholecystic fluid. Notably, the patient's comprehensive metabolic panel did not show evidence of hyperbilirubinemia or transaminitis. Patient is still experiencing flatus and had a bowel movement during his ER stay, but feels like this was an incomplete void. He normally requires prune juice, fiber and regular Dulcolax to have bowel movements. He is up-to-date on his colonoscopy screening. [facility] Medical History (Updated 07/07/21 @ 16:[address] Luis Rodriguez MD) Atherosclerotic heart disease of [place] coronary artery without angina pectoris BPH (benign prostatic hyperplasia) Essential (primary) hypertension ETOH abuse Hyperlipidemia Nonrheumatic mitral valve regurgitation Obesity (BMI 30.0-34.9) GAVINO (obstructive sleep apnea) Overweight (BMI 25.0-29.9) PAF (paroxysmal atrial fibrillation) Proteinuria Seizures Home Medications fenofibrate 160 mg PO DAILY 05/07/13 [History Last Taken 05/07/13] simvastatin 20 mg PO QHS 05/07/13 [History Last Taken 05/07/13] ascorbic acid (vitamin C) 500 mg PO DAILY@0800 11/14/14 [History Last Taken Unknown] multivitamin with folic acid 1 tab PO DAILY 11/14/14 [History Last Taken Unknown] selenium 200 mcg PO DAILY 11/14/14 [History Last Taken Unknown] vitamin B complex 1 ea PO DAILY 11/14/14 [History Last Taken Unknown] vitamin E (dl, acetate) 400 units PO DAILY 11/14/14 [History Last Taken Unknown] amlodipine 10 mg tablet 10 mg PO QDAY 09/12/17 [History Last Taken 11/14/19 05:30] cholecalciferol (vitamin D3) 25 mcg (1,000 unit) tablet 1,000 unit PO QDAY 09/12/17 [History Last Taken Unknown] omega-3 fatty acids 1,000 mg capsule See Rx Instructions .ROUTE .COMPLEX cap 09/15/17 [History Last Taken 11/08/19] losartan 100 mg tablet 100 mg PO DAILY 09/26/18 [History Last Taken Unknown] L.acidoph, paracasei,B. lactis 1 ea PO DAILY 11/07/19 [History Last Taken Unknown] aspirin 81 mg tablet,delayed release 81 mg PO DAILY 05/27/20 [History Last Taken Unknown] furosemide 20 mg tablet 20 mg PO DAILY tab 05/27/20 [History Last Taken Unknown] metoprolol succinate 100 mg tablet,extended release 24 hr 50 mg PO QDAY tab 12/09/20 [History Last Taken Unknown] lacosamide 100 mg tablet See Rx Instructions .ROUTE .COMPLEX #0 tab 06/23/21 [Rx Last Taken Unknown] spironolactone 25 mg tablet 25 mg PO DAILY 06/23/21 [History Last Taken Unknown] zonisamide 100 mg capsule 100 mg PO .COMPLEX #42 cap 07/07/21 [Rx Last Taken Unknown] zonisamide 100 mg capsule 100 mg PO TID #270 cap 07/07/21 [Rx Last Taken Unknown] Allergy/AdvReac Type Severity Reaction Status Date / Time hydrocodone bitartrate Allergy Itching Verified 07/07/21 06:03 [From Vicodin] chlorhexidine AdvReac Unknown Verified 07/07/21 06:03 Family History Mother CVA (cerebral vascular accident) Father CAD (coronary artery disease) Hx CABG Myocardial infarction Brother Myocardial infarction CAD (coronary artery disease) Hypertension Sister CAD (coronary artery disease) Hx CABG Hypertension Surgical History History of coronary artery stent placement (05/09/13) History of hernia repair History of surgery on arm History of transurethral resection of prostate Social History Smoking Status: Never smoker Smokeless tobacco user: chewing tobacco Electronic Cigarette Use: not used second hand exposure: Yes alcohol intake: former year quit: 2014 substance use type: does not use caffeine: Yes Type: carbonated beverages 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 do you feel safe at home: Yes Vital Signs Vital Signs Vital Signs: 07/07/21 06:00 07/07/21 06:06 07/07/21 08:10 Temperature 98.2 F Temperature Source Oral Pulse Rate 65 57 L Respiratory Rate 18 Respiratory Effort Normal Respiratory Pattern Normal Blood Pressure 182/66 H 154/65 H Blood Pressure Mean 104 94 Pulse Ox 96 97 Oxygen Delivery Method Room Air Room Air 07/07/21 10:00 07/07/21 13:10 Temperature Temperature Source Pulse Rate 60 55 L Respiratory Rate 18 Respiratory Effort Respiratory Pattern Blood Pressure 165/72 H 112/75 Blood Pressure Mean 103 87 Pulse Ox 94 98 Oxygen Delivery Method Room Air Room Air Weight Weight: 210 lb Body Mass Index (BMI) 30.1 Physical Exam Const alert, oriented x3 and no apparent distress General Appearance: cooperative GI GI Narrative: Negative Campa sign. Patient denies any abdominal tenderness with deep palpation Inspection: abdominal distention Palpation: Negative for guarding Results Lab / Micro Data Result Diagrams: 07/07/21 07:11 07/07/21 07:11 Labs: Laboratory Results - last 24 hr 07/07/21 07:11: WBC 12.7 H, RBC 3.93 L, Hgb 13.3, Hct 37.2 L, MCV 94.7 H, MCH 33.8 H, MCHC 35.8, RDW Std Deviation 41.1, RDW Coeff of Angy 11.8, Plt Count 275, MPV 9.4, Immature Gran % (Auto) 0.700, Neut % (Auto) 84.3 H, Lymph % (Auto) 3.3 L, Powell % (Auto) 11.5 H, Eos % (Auto) 0.0, Baso % (Auto) 0.2, Absolute Neuts (auto) 10.7 H, Absolute Lymphs (auto) 0.42 L, Nucleated RBC % 0, Differential Comment COMMENT 07/07/21 07:11: Sodium 132 L, Potassium 4.0, Chloride 98, Carbon Dioxide 28.0, Anion Gap 6, BUN 21 H, Creatinine 0.91, Estim Creat Clear Calc 66.85, Est GFR (MDRD) Af Amer 103, Est GFR (MDRD) Non-Af 85, BUN/Creatinine Ratio 23.1 H, Glucose 151 H, Calcium 9.6, Total Bilirubin 0.40, AST 21, ALT 41, Alkaline Phosphatase 65, Total Protein 7.4, Albumin 3.5, Globulin 3.9, Albumin/Globulin Ratio 0.9, Lipase 141 07/07/21 07:11: Urine Color Yellow, Urine Clarity Clear, Urine pH 6.0, Ur Specific [place] 1.020, Urine Protein 100 H, Urine Glucose (UA) Normal, Urine Ketones Negative, Urine Occult Blood 10 H, Urine Nitrite Negative, Urine Bilirubin Negative, Urine Urobilinogen Normal, Ur Leukocyte Esterase Negative, Urine RBC 0-5 SEEN, Urine WBC 0 SEEN, Ur Squamous Epith Cells 0 SEEN, Urine Bacteria 0 SEEN, Urine Mucus 0 SEEN Micro: Microbiology 07/07/21 07:38 Nasal Secretion SARS-CoV-2 Antigen (Rapid) - Final Radiology Impression Abdomen/Pelvis CT 07/07/21 06:56 IMPRESSION: Solitary gallstone in the neck of the gallbladder with mild gallbladder wall thickening. Correlation with ultrasound is recommended for further evaluation. Bilateral renal cysts. Heterogeneous enlargement of the prostate with indentation of the bladder base. Small left inguinal hernia. Electronically Signed: Dima Eckert MD at 9:23 EST , Gallbladder Ultrasound 07/07/21 09:33 IMPRESSION: Diffuse fatty infiltration of the liver. Distended gallbladder and thickened wall. Gallstone. Electronically Signed: Dima Eckert MD at 12:04 EST , Assessment & Plan Assessment/Plan (1) Thickening of wall of gallbladder: PLAN: This is an 80-year-old male who presents with abdominal cramping and weakness. ER work-up is notable for mild leukocytosis, mild gallbladder wall thickening, but normal LFTs normal bilirubin, no evidence of pericholecystic fluid. Furthermore, on exam patient has no significant tenderness with deep palpation and has a negative Campa sign. He states that he does have a constant underlying discomfort and feels as though a large bowel movement may improve the symptoms. When I reviewed the patient's CT imaging, he does have a moderate stool burden in the right colon. It is possible that his discomfort is related to some underlying constipation. Given the benign nature of his physical exam, I am not impressed for a diagnosis of cholecystitis. Additionally, his leukocytosis may be explained by a recent tooth infection for which he was on antibiotics last week. Still, given the abnormal imaging and incomplete resolution of his abdominal discomfort, I would like to see him in outpatient follow-up later this week to reassess his exam. This appointment has been made through my clinic. I have also given him return precautions should his symptoms change. He and his express understanding of this information and agreed to proceed as described. Charges/Coding Visit Charges Inpatient E&M: 67774 Init Hosp L2
== END 2021-07-07 14:39 | disposition home or self-care (01) ==
PROVIDERS: Emergency Medicine; Emergency Provider Emergency Medicine; PCP Internal Medicine; Visit Provider Emergency Medicine
DX: I48.0 Paroxysmal atrial fibrillation (principal); E78.5 Hyperlipidemia, unspecified; K82.8 Other specified diseases of gallbladder; I10 Essential (primary) hypertension; I25.10 Atherosclerotic heart disease of native coronary artery without angina pectoris; E87.1 Hypo-osmolality and hyponatremia; Z79.01 Long term (current) use of anticoagulants; Z79.899 Other long term (current) drug therapy; N40.0 Benign prostatic hyperplasia without lower urinary tract symptoms; E66.9 Obesity, unspecified; G47.33 Obstructive sleep apnea (adult) (pediatric); Z95.5 Presence of coronary angioplasty implant and graft; F17.220 Nicotine dependence, chewing tobacco, uncomplicated
CPT/HCPCS: 99281; 74177; 76705; 80053; 81001; 83690; 85025; 87426; J7030; Q9967; A4216

== ENCOUNTER 2021-07-08 13:51 | Outpatient (CLI) | payer MEDICARE, SELFPAY ==
--- NOTE | 2021-07-08 13:58 | CT_ITS ---
STUDY: CT BRAIN WITHOUT CONTRAST REASON FOR EXAM: Male, 80 years old. MENTAL STATUS CHANGE RADIATION DOSAGE (If Supplied By Facility): CTDIvol = ( 44.99 ) mGy, DLP = ( 846.73 ) mGycm TECHNIQUE: Transaxial CT imaging of the brain was performed without administration of intravenous contrast material. Individualized dose optimization techniques were used for this CT. COMPARISON: Comparison is made with prior examination dated 03/06/2020. FINDINGS: Normal soft tissue structures. Normal calvarium. There is disproportionate enlargement of the lateral and third ventricles, as compared to the extra-axial spaces. The findings suggest normal pressure hydrocephalus (NPH). There are areas of decreased attenuation within the white matter tracts of the supratentorial brain, consistent with microvascular disease changes. Normal basal ganglia and thalami. Normal brainstem. Normal cerebellum. There is no intracranial hemorrhage. There are no findings of an acute ischemic infarction. Normal visualized paranasal sinuses. CT/Brain/Head without Contrast IMPRESSION: Disproportionate enlargement of the lateral and third ventricles as compared to the extra-axial spaces. Normal pressure hydrocephalus should be ruled out. There has been no change since prior study. Electronically Signed: Dima Eckert MD at 14:31 EST ,
== END 2021-07-08 23:59 | disposition home or self-care (01) ==
LOC: CT 13:54
PROVIDERS: PCP Internal Medicine; Referring Provider Internal Medicine; Visit Provider Internal Medicine
DX: R41.82 Altered mental status, unspecified (principal)
CPT/HCPCS: 70450

== ENCOUNTER 2021-07-09 06:19 | Inpatient (IN) | payer MEDICARE, SELFPAY ==
[2021-07-09] VITALS (26 sets, daily range): BP systolic 121–172; BP diastolic 59–99; PULSE 68–135; RESP 16–41; TEMP 36.7–37.9; O2SAT 91–99; BMI 30.7; BMI 29.5
--- NOTE | 2021-07-09 | GALL_PTH ---
PATIENT: DEX BAEZ LOC: [facility] U#:[id number] AGE/SX: 80/M ROOM: [facility] RE07/09/[address]: Dr. Marissa Leal DO : 1940 BED: 1 DIS: 07/15/2021 SPEC #: [id number] RECD: 07/10/21 06:48 STATUS: EDD HENDERSON #: [id number] MYNOR: 07/09/21 00:[address]: Luis Rodriguez DEPT: SURGICAL PATHOLOGY RECD BY: Kee Bagley ENTERED: 07/10/21 09:47 SP TYPE: BLU WRIGHT DR: Dr. Brittany Combs MD Tissues: Gallbladder, NOS Procedures: Surgery Specimen Level III HEADER OPERATION: Laparoscopic cholecystectomy, attempted IOC PRE-OP DIAGNOSIS: Acute cholecystitis TISSUE SUBMITTED: Gallbladder MICROSCOPIC DIAGNOSIS Gallbladder, cholecystectomy: Acute and chronic ulcerated, hemorrhagic and focally necrotizing cholecystitis and cholelithiasis. PATSY:harry 07/13/2021 MICROSCOPIC DESCRIPTION Slides are reviewed. GROSS DESCRIPTION Received is one container labeled with the patient's name and designated gallbladder. The specimen consists of a gallbladder measuring 12 cm in length and up to 4.5 cm in diameter. The serosa is congested and hemorrhagic. The external surface is pink-aragon, smooth and glistening for the most part. Focally it is granular, hemorrhagic and contains cautery artifact. The gallbladder contains a small amount of hemorrhagic bile. The mucosa is congested and ulcerated. The cystic duct area is previously opened. Present in the area of cystic duct is a brownish-black, ovoid stone measuring 2 cm in greatest dimension. The gallbladder wall measures up to 0.5 cm in thickness. Sections of the gallbladder wall reveal congested and hemorrhagic cut surfaces. [employer] sections from the gallbladder and the cystic duct are submitted in two cassettes. / PATSY:harry 07/10/2021 TC:2 CPT: 41933
--- NOTE | 2021-07-09 07:47 | EDS_ITS ---
HPI HPI - GI History of Present Illness Chief Complaint: Abd Pain Informant: patient Abdominal Pain/Flank Pain Onset: Days Context: Gradual Onset Timing: Continuous Quality: Cramping Location: RUQ Worsened by: - (Palpation of the right upper quadrant) Relieved by: Nothing Nausea/Vomiting/Emesis GI Symptom: Positive for Nausea; Negative for Vomiting Diarrhea/Melena/Hematochezia GI Symptom: Negative for Diarrhea, Melena and Hematochezia Associated Symptoms Associated Symptoms: Negative for Dysuria, Frequency and Hematuria Narrative Narrative: Patient presents with abdominal pain that became worse today. Patient states his pain is over the right upper quadrant. Patient states the pain radiates into his back. Patient admits to nausea but denies any vomiting. Patient states his pain is worse whenever he pushes on the area. Patient denies any diarrhea, melena, or hematochezia. Patient denies any dysuria or hematuria. Patient was seen here recently and was diagnosed with cholelithiasis with some gallbladder wall thickening. There is no pericholecystic fluid at that time. Patient states his pain is gotten worse over the past couple days. [facility] Medical History (Updated 07/09/21 @ 17:[address] Mckay Perdomo, DO) Atherosclerotic heart disease of [place] coronary artery without angina pectoris BPH (benign prostatic hyperplasia) Essential (primary) hypertension ETOH abuse Hyperlipidemia Nonrheumatic mitral valve regurgitation Obesity (BMI 30.0-34.9) GAVINO (obstructive sleep apnea) Overweight (BMI 25.0-29.9) PAF (paroxysmal atrial fibrillation) Proteinuria Seizures Home Medications fenofibrate 160 mg PO DAILY 05/07/13 [History Last Taken 05/07/13] simvastatin 20 mg PO QHS 05/07/13 [History Last Taken 05/07/13] ascorbic acid (vitamin C) 500 mg PO DAILY@0800 11/14/14 [History Last Taken Unknown] multivitamin with folic acid 1 tab PO DAILY 11/14/14 [History Last Taken Unknown] selenium 200 mcg PO DAILY 11/14/14 [History Last Taken Unknown] vitamin B complex 1 ea PO DAILY 11/14/14 [History Last Taken Unknown] vitamin E (dl, acetate) 400 units PO DAILY 11/14/14 [History Last Taken Unknown] amlodipine 10 mg tablet 10 mg PO QDAY 09/12/17 [History Last Taken 11/14/19 05:30] cholecalciferol (vitamin D3) 25 mcg (1,000 unit) tablet 1,000 unit PO QDAY 09/12/17 [History Last Taken Unknown] omega-3 fatty acids 1,000 mg capsule See Rx Instructions .ROUTE .COMPLEX cap 09/15/17 [History Last Taken 11/08/19] losartan 100 mg tablet 100 mg PO DAILY 09/26/18 [History Last Taken Unknown] L.acidoph, paracasei,B. lactis 1 ea PO DAILY 11/07/19 [History Last Taken Unknown] aspirin 81 mg tablet,delayed release 81 mg PO DAILY 05/27/20 [History Last Taken Unknown] furosemide 20 mg tablet 20 mg PO DAILY tab 05/27/20 [History Last Taken Unknown] metoprolol succinate 100 mg tablet,extended release 24 hr 100 mg PO QDAY tab 12/09/20 [History Last Taken Unknown] lacosamide 100 mg tablet See Rx Instructions .ROUTE .COMPLEX #0 tab 06/23/21 [Rx Last Taken Unknown] spironolactone 25 mg tablet 25 mg PO DAILY 06/23/21 [History Last Taken Unknown] lamotrigine 25 mg PO DAILY 07/09/21 [History Last Taken Unknown] zonisamide 100 mg capsule 100 mg PO .COMPLEX #42 cap 07/09/21 [Rx Last Taken Unknown] Allergy/AdvReac Type Severity Reaction Status Date / Time hydrocodone bitartrate Allergy Mild Hives Verified 07/09/21 06:26 [From Vicodin] chlorhexidine AdvReac Unknown Verified 07/09/21 06:26 Family History Mother CVA (cerebral vascular accident) Father CAD (coronary artery disease) Hx CABG Myocardial infarction Brother Myocardial infarction CAD (coronary artery disease) Hypertension Sister CAD (coronary artery disease) Hx CABG Hypertension Surgical History History of coronary artery stent placement (05/09/13) History of hernia repair History of surgery on arm History of transurethral resection of prostate Social History Smoking Status: Never smoker Smokeless tobacco user: chewing tobacco Electronic Cigarette Use: not used second hand exposure: Yes alcohol intake: former year quit: 2014 substance use type: does not use caffeine: Yes Type: carbonated beverages 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 do you feel safe at home: Yes ROS ROS ED Constitutional Constitutional ED: Reports chills and subjective; Denies fever(s) Eyes Eyes: Denies blurry vision or change in vision ENT ENT ED: Denies rhinorrhea or sore throat Cardiovascular Cardiovascular: Denies chest pain or palpitations Respiratory/Chest Respiratory/Chest: Denies cough or dyspnea Gastrointestinal Gastrointestinal: Reports abdominal pain and nausea; Denies vomiting Genitourinary Genitourinary ED: Denies dysuria or hematuria Musculoskeletal Musculoskeletal: Reports back pain; Denies neck pain Integumentary Denies abscess or rash Neurologic Neurologic: Denies headache(s) or weakness Allergic/Immunologic Allergic/Immunologic ED: Denies mouth swelling or urticaria EXAM Physical Exam Const Vital Signs: 07/09/21 06:20 07/09/21 09:06 07/09/21 09:58 Temperature 100.3 F H Temperature Source Oral Pulse Rate 75 87 68 Respiratory Rate 18 16 30 H Blood Pressure 158/79 H 152/78 H 152/90 H Blood Pressure Mean 105 102 110 Blood Pressure Source Pulse Ox 95 99 94 Oxygen Delivery Method Room Air Room Air 07/09/21 10:18 07/09/21 10:26 07/09/21 11:00 Temperature 100.0 F H Temperature Source Oral Pulse Rate 70 110 H 133 H Respiratory Rate 30 H 30 H 41 H Blood Pressure 172/80 H 159/66 H 158/78 H Blood Pressure Mean 110 97 104 Blood Pressure Source Monitor Pulse Ox 95 92 Oxygen Delivery Method Room Air Room Air Positive well nourished and well developed General Appearance ED: well developed HEENT Reports moist mucous membranes Neck supple and no JVD Resp normal respiratory effort and clear to auscultation bilaterally Cardio regular rate, regular rhythm and no murmurs GI normal to inspection, nondistended, normoactive bowel sounds Palpation: soft and tender epigastric and RUQ; Negative for guarding or rebound tenderness present Extremity normal to inspection General Extremety ED: Negative for edema or tenderness General Extremity: Negative for edema Neuro oriented x3, CN's II-XII intact bilaterally and no sensory deficits noted Sensorium / Orientation: alert Motor Exam: strength 5/5 throughout Psych mental status grossly normal Skin no rashes or lesions noted MDM MDM MDM Narrative Medical decision making narrative: Patient was given IV fluids, morphine, and Zofran. CBC shows a leukocytosis of 21.1. Comprehensive metabolic profile shows a sodium of 128 and chloride of 95. Liver function tests were essentially within normal limits. CT scan of the abdomen and pelvis was obtained. There is a 16 mm gallstone possibly impacted in the neck of the gallbladder with cholecystitis. There is also a 2 cm lesion in the superior pole of the right kidney that is concerning for neoplasm. This was interpreted by the radiologist and reviewed by myself. Patient was advised of his findings. Case was discussed with Dr. Rodriguez. He will be in to evaluate the patient. Patient and spouse understood and were agreeable with the plan. All questions were answered. Dr. Rodriguez was in to evaluate the patient. He requested that the hospitalist be consulted for medical management. Case was discussed with the hospitalist. He was in to evaluate the patient prior to the patient going to the operating room. Before the patient went to the operating room, he was noted to have some palpitations. Patient was placed on the monitor. Patient was noted to be in atrial fibrillation. Patient has a history of paroxysmal atrial fibrillation. Patient was given a dose of Cardizem here. Case was discussed again with the hospitalist. Since the patient has a history of paroxysmal atrial fibrillation, he recommended patient be rate controlled prior to going to the operating room. Patient's rate improved after Cardizem and he was transferred to the operating room. Lab Data Attestation: I reviewed the patient's lab results. Labs: Laboratory Results - last 24 hr 07/09/21 07/09/21 07/09/21 07:40 07:40 07:40 WBC 21.1 H RBC 3.86 L Hgb 13.2 Hct 35.7 L MCV 92.5 MCH 34.2 H MCHC 37.0 H RDW Std Deviation 38.9 RDW Coeff of Angy 11.4 L Plt Count 282 MPV 9.6 Immature Gran % (Auto) 1.000 H Neut % (Auto) 86.2 H Lymph % (Auto) 2.0 L [place] % (Auto) 10.6 H Eos % (Auto) 0.0 Baso % (Auto) 0.2 Absolute Neuts (auto) 18.2 H Absolute Lymphs (auto) 0.42 L Nucleated RBC % 0 Differential Comment COMMENT Diff Path Review Reviewed Sodium 128 L Potassium 3.7 Chloride 95 L Carbon Dioxide 23.0 Anion Gap 10 BUN 20 H Creatinine 0.79 Estim Creat Clear Calc 60.83 Est GFR (MDRD) Af Amer 121 Est GFR (MDRD) Non-Af 100 BUN/Creatinine Ratio 25.3 H Glucose 130 H Calcium 8.6 Total Bilirubin 1.00 AST 42 H ALT 39 Alkaline Phosphatase 65 B-Natriuretic Peptide 670.5 H Total Protein 7.1 Albumin 2.9 L Globulin 4.2 Albumin/Globulin Ratio 0.7 L Lipase 58 L Radiography Diagnostic Testing: Clinical Impression(s) from Imaging Studies Abdomen/Pelvis CT 07/09/21 08:12 IMPRESSION: 1. 16 mm gallstone possibly impacted within the neck of the gallbladder associated with changes consistent with acute cholecystitis. 2. Small bowel ileus. 3. Diverticulosis coli. 4. 2 cm right renal lesion suggestive of neoplasm. Individualized dose optimization techniques were used for this CT. at 0850 Reported and signed by: Marco Rojas MD Electronically Signed: Marco Rojas MD at 8:49 EST Reading Location ID and State: [facility] / [place] Tel , Service support , EKG Initial EKG: Attestation: I personally reviewed and interpreted this EKG as follows: Interpretation: No Acute Injury Pattern and Atrial Fibrillation (132) Discharge Plan Dx/Rx/DC Orders Clinical Impression: Acute cholecystitis, Mass of right kidney, PAF (paroxysmal atrial fibrillation) Disposition Disposition: Acute Care [facility]
[2021-07-09 07:49] LABS: Absolute Lymphocyte Count 0.42 X10^3/uL (0.83-4.51); Absolute Neutrophil Count 18.2 X10^3/uL (2.0-7.7); Basophil# 0.05 X10^3/uL; Basophil% 0.2 % (0-1); Differential Indicated SCAN CRITERIA MET; Hematocrit 35.7 % (40-54); Hemoglobin 13.2 g/dL (13.0-16.5); Lymphocyte # 0.42 X10^3/ul (0.83-4.51); Mean Corpuscular Hgb 34.2 pg (27.0-32.0); Mean Corpuscular Volume 92.5 fL (80-94); Mean Platelet Vol. 9.6 fl (6.2-12.0); Monocyte# 2.24 X10^3/uL; Monocyte% 10.6 % (0-10); NRBC Flagged by Analyzer 0 % (0-5); Neutrophil # 18.16 X10^3/uL (2.7-7.7); Neutrophil % 86.2 % (47-70); POSITIVE DIFFERENTIAL YES; Platelet Count 282 K/mm3 (150-450); RBC Distribution Width CV 11.4 % (11.6-14.6); RBC Distribution Width SD 38.9 fl (35.1-43.9); Red Blood Count 3.86 M/mm3 (4.6-6.2); White Blood Count 21.1 K/mm3 (4.4-11.0)
[2021-07-09] MEDS: Morphine 4 MG/ML Syringe IV (07:51)
[2021-07-09] MEDS: Ondansetron 4 MG/2 ML Vial IV (07:51)
[2021-07-09] MEDS: 0.9% Normal Saline 1,000 ML 1000 ML IV (07:52)
[2021-07-09 08:05] LABS: ALB/GLOB Ratio 0.7 RATIO (0.9-2.4); AST(SGOT) 42 U/L (15-37); Alanine Aminotransfer ALT/SGPT 39 U/L (16-61); Albumin, Serum 2.9 g/dL (3.2-5.0); Alkaline Phosphatase 65 U/L (45-117); Anion Gap 10 (5-15); BUN 20 mg/dL (7-18); BUN/Creat Ratio 25.3 RATIO (10-20); Calcium,Total 8.6 mg/dL (8.5-10.1); Chloride 95 mmol/L (98-107); Creatinine, Serum 0.79 mg/dL (0.70-1.30); EST Glomerular Filtration Rate 100 mL/min (>60); Est Glom Filt Rate - Afr Amer 121 mL/min (>60); Estimated Creatinine Clearance 60.83 ml/min; Globulin 4.2 g/dL (2.2-4.2); Glucose 130 mg/dL (74-106); Lipase 58 U/L (73-393); Potassium 3.7 mmol/L (3.5-5.1); Protein, Total 7.1 g/dL (6.4-8.2); Sodium Level 128 mmol/L (136-145)
--- NOTE | 2021-07-09 08:12 | CT_ITS ---
EXAM: CT ABDOMEN AND PELVIS WITHOUT INTRAVENOUS CONTRAST : 1940 CLINICAL INDICATION: Abdominal pain TECHNIQUE: Helically acquired images were obtained of the abdomen and pelvis without intravenous contrast. This CT exam was performed using one or more of the following dose reduction techniques: automated exposure control, adjustment of the mA and/or kV according to patient size, and/or use of iterative reconstruction technique. This report was created using [employer] report generation technology. COMPARISON: July 07, 2021 FINDINGS: LOWER THORAX: Mild bibasilar atelectasis minimal pleural effusion. Stable mild cardiomegaly. Trace pericardial effusion. ABDOMEN: LIVER: 13 mm hypodensity within hepatic segment 3 is unchanged. GALLBLADDER AND BILE DUCTS: Large gallstone again identified along the neck of the gallbladder associated with pericholecystic fluid and adjacent fat stranding. PANCREAS: Unremarkable. No focal cystic mass. SPLEEN: Splenic granulomata noted. ADRENALS: Unremarkable. No nodules. KIDNEYS AND URETERS: Bilateral renal cysts. Suspected solid mass involving the upper pole right kidney not well seen on the current study. Normal renal size and position. STOMACH AND BOWEL: Colon diverticulosis noted without evidence of acute diverticulitis. Air-fluid levels noted within the mildly dilated small bowel suggestive of ileus. PELVIS: APPENDIX: Appendix is visualised and normal in appearance. BLADDER: Unremarkable. REPRODUCTIVE: Moderate prostatomegaly. ABDOMEN and PELVIS: INTRAPERITONEAL SPACE: Unremarkable. No ascites or other fluid collection. No free air. BONES/JOINTS: Unremarkable. No suspicious lytic or blastic abnormality. SOFT TISSUES: Small fat-containing left inguinal hernia. VASCULATURE: Unremarkable. Abdominal aorta is non-dilated. LYMPH NODES: Unremarkable. No enlarged lymph nodes. CT/Abdomen/Pelvis without Cont IMPRESSION: 1. 16 mm gallstone possibly impacted within the neck of the gallbladder associated with changes consistent with acute cholecystitis. 2. Small bowel ileus. 3. Diverticulosis coli. 4. 2 cm right renal lesion suggestive of neoplasm. Individualized dose optimization techniques were used for this CT. at 0850 Reported and signed by: Marco Rojas MD Electronically Signed: Marco Rojas MD at 8:49 EST ,
--- NOTE | 2021-07-09 09:51 | CON.PCM.HO_ITS ---
Assessment & Plan Assessment/Plan (1) Acute cholecystitis: (2) Epilepsy: (3) Paroxysmal atrial fibrillation with RVR: PLAN: 1. Acute cholecystitis with cholelithiasis: Patient is being taken to the OR from ER for laparoscopic cholecystectomy. Patient seen by surgeon Dr. Luis Oviedo. Preop antibiotic. Pain control. Rest as per surgeon. Incentive spirometry. Intake and output monitoring. 2. Proximal A. fib with RVR: Patient heart rate transiently decreased with Cardizem IV bolus but again tachycardic, in 130s. Started on Cardizem drip. Continue metoprolol after surgery if oral allowed or IV metoprolol as needed to control the heart rate. The patient had last echo in March 2013 reported EF 65%, trivial MR and TR. Serial troponin, TSH ordered. 3. Coronary artery disease status post cardiac stent, mid RCA in April 2013. In August 2017 patient had a stress test which shows EF 71%. We will repeat 2D echo. No acute chest pain. Nitroglycerin sublingual as needed. 4. 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 Patient follows Dr Smith and is in the process of titration down of Vimpat after initiation of lamotrigine. Continues zonisamide. Continue antiepileptic medication as prescribed by . 5. 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 Estimated creatinine clearance 16 will permit Other comorbidities include essential hypertension, dyslipidemia: Lipid profile ordered. Patient on losartan, simvastatin and amlodipine. Medications to continue once patient is oral and blood pressure permits. VTE prophylaxis: Eliquis 5 mg twice daily when patient hemostasis is controlled after surgery. I do not see Eliquis on his home medication, not sure was it started prior to his anticipated surgery for cholecystectomy. Total time of the visit including total time spent in counseling or coordination of care, (more than 50% of the total time, spent in obtaining medical information from nurses and other ancillary care providers,explaining to the patient about labs, imaging, diagnosis and management), discussion with ED physician consultants, review of labs and imaging is 45 minutes. Living will/advanced directive/end of life care: Patient does have living will or advanced directive. His is power of workers compensation defense attorney for health. After discussion of benefits/risks procedures involved with full code, DNR CC arrest and DNR CC, the patient and his opted for full code during surgery and for meaningful recovery if possible. He did not want to be on life support in the v egetable state for long time. Patient does want artificial life support including intubation, tube feed, ventilator and/chest compression, central venous catheter, vasopressor and DC shock if needed Total time spent in [id number] encounter in discussion of advanced directive 16 minutes. HPI Consult Data Date of Consult: 07/09/21 Attending Care Provider: Dr. Luis Rodriguez HPI Narrative Reason for Consultation: A. fib with RVR, other comorbidities include CAD,Epilepsy disorder HPI Narrative: DEX BAEZ, is a 80 M with multiple comorbidities was brought to ED by EMS for progressive worsening of abdominal pain for last 2 days. Started 2 days ago with mild abdominal discomfort mainly in umbilical and right upper quadrant region which progressed over the last 2 days to severe abdominal pain last night. He complained of abdominal pain constant, 10/10 intensity, mainly in the right upper quadrant with radiation, wrapping around right side of back along with abdominal distention with no precipitating or relieving factor associated with nausea. Patient does not have associated vomiting diarrhea, hematemesis, melena. Patient felt chills and rigors but did not had fever. The patient was recently evaluated by Dr. Luis Fisher on 07/07 for cholelithiasis with acute cholecystitis, wall thickening 5.9 mm, no pericholecystic fluid and similar findings of CT abdomen. CT abdomen shows 16mm gallstone impacted in the neck of gallbladder with changes suggestive of cholecystitis features. There he also 2 cm right renal lesion suggestive of neoplasm. While in the ER, patient suddenly found A. fib with RVR. Patient has history of paroxysmal A. fib. He denies chest pain/pressure, shortness of breath, palpitation, dizziness or lightheadedness although he is uncomfortable from abdominal pain. Patient was given 25 mg IV Cardizem bolus by ED physician. Pat ient heart rate slowed down to 70 but again it is 131/min. IV Cardizem drip ordered. Discussed with the surgeon. Twelve-lead EKG shows A. fib with RVR, LVH with repolarization abnormality. QTC 449 ms. Labs reviewed and mentioned in assessment plan [facility] Medical History (Updated 07/09/21 @ 13:[address] Avel Howard MD) Atherosclerotic heart disease of [place] coronary artery without angina pectoris BPH (benign prostatic hyperplasia) Essential (primary) hypertension ETOH abuse Hyperlipidemia Nonrheumatic mitral valve regurgitation Obesity (BMI 30.0-34.9) GAVINO (obstructive sleep apnea) Overweight (BMI 25.0-29.9) PAF (paroxysmal atrial fibrillation) Proteinuria Seizures Home Medications fenofibrate 160 mg PO DAILY 05/07/13 [History Last Taken 05/07/13] simvastatin 20 mg PO QHS 05/07/13 [History Last Taken 05/07/13] ascorbic acid (vitamin C) 500 mg PO DAILY@0800 11/14/14 [History Last Taken Unknown] multivitamin with folic acid 1 tab PO DAILY 11/14/14 [History Last Taken Unknown] selenium 200 mcg PO DAILY 11/14/14 [History Last Taken Unknown] vitamin B complex 1 ea PO DAILY 11/14/14 [History Last Taken Unknown] vitamin E (dl, acetate) 400 units PO DAILY 11/14/14 [History Last Taken Unknown] amlodipine 10 mg tablet 10 mg PO QDAY 09/12/17 [History Last Taken 11/14/19 05:30] cholecalciferol (vitamin D3) 25 mcg (1,000 unit) tablet 1,000 unit PO QDAY 09/12/17 [History Last Taken Unknown] omega-3 fatty acids 1,000 mg capsule See Rx Instructions .ROUTE .COMPLEX cap 09/15/17 [History Last Taken 11/08/19] losartan 100 mg tablet 100 mg PO DAILY 09/26/18 [History Last Taken Unknown] L.acidoph, paracasei,B. lactis 1 ea PO DAILY 11/07/19 [History Last Taken Unknown] aspirin 81 mg tablet,delayed release 81 mg PO DAILY 05/27/20 [History Last Taken Unknown] furosemide 20 mg tablet 20 mg PO DAILY tab 05/27/20 [History Last Taken Unknown] metoprolol succinate 100 mg tablet,extended release 24 hr 50 mg PO QDAY tab 12/09/20 [History Last Taken Unknown] lacosamide 100 mg tablet See Rx Instructions .ROUTE .COMPLEX #0 tab 06/23/21 [Rx Last Taken Unknown] spironolactone 25 mg tablet 25 mg PO DAILY 06/23/21 [History Last Taken Unknown] zonisamide 100 mg capsule 100 mg PO .COMPLEX #42 cap 07/07/21 [Rx Last Taken Unknown] zonisamide 100 mg capsule 100 mg PO TID #270 cap 07/07/21 [Rx Last Taken Unknown] Allergy/AdvReac Type Severity Reaction Status Date / Time hydrocodone bitartrate Allergy Mild Hives Verified 07/09/21 06:26 [From Vicodin] chlorhexidine AdvReac Unknown Verified 07/09/21 06:26 Family History Mother CVA (cerebral vascular accident) Father CAD (coronary artery disease) Hx CABG Myocardial infarction Brother Myocardial infarction CAD (coronary artery disease) Hypertension Sister CAD (coronary artery disease) Hx CABG Hypertension Surgical History History of coronary artery stent placement (05/09/13) History of hernia repair History of surgery on arm History of transurethral resection of prostate Social History Smoking Status: Never smoker Smokeless tobacco user: chewing tobacco Electronic Cigarette Use: not used second hand exposure: Yes alcohol intake: former year quit: 2014 substance use type: does not use caffeine: Yes Type: carbonated beverages 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 Subjective chills and rigors. HEENT: reports systems reviewed and no addt'l complaints, except as documented Respiratory/Chest: Denies chest pain, shortness of breath with exertion Gastrointestinal: Mild abdominal distention. Rest as mentioned in HPI Genitourinary: Denies burning urination or new urinary tract symptoms Musculoskeletal: Denies joint pain and limited range of motion Neurologic: Idiopathic seizure. On Vimpat tapering down with the start of zonisamide. skin: No ulcer. No rash Endocrinology: Reports systems reviewed and no addt'l complaints, except as documented Hematologic/Lymphatic: Reports systems reviewed and no addt'l complaints, except as documented Rest 14 ROS are negative except as mentioned in HPI Physical Exam Narrative General: Alert, Oriented x3, Cooperative, low-grade fever. In mild distress due to abdominal pain HEENT: Atraumatic, PERRLA, EOMI, Normocephalic. Conjunctiva and icterus negative. Oral: Oral mucosa dry. No Gingival or Mucosal Lesions/ Ulcerations Neck: Supple, No JVD, Negative Carotid Bruits Lungs: Air entry diminished in bilateral lung bases. No crepitation/rhonchi Cardiovascular: Irregular rate and rhythm, A. fib with RVR, Normal S1, Normal S2, systolic murmur over LLSB and cardiac apex. Abdomen: Abdomen distended, generalized tenderness, predominantly over right upper quadrant. Bowel sounds sluggish. No palpable mass. : Denies new urinary tract symptoms. No renal angle tenderness. No suprapubic tenderness. Extremities: No ankle/pedal edema, Capillary Refill Less than 3 Seconds Skin: No rashes, No breakdown Musculoskeletal: No Tenderness to Palpation of Joints or Extremities Neurological: Cranial nerves II-XII grossly intact, DTR 2+/4 and Symmetrical, Neuro grossly intact. No seizure Psych/Mental Status: Flat affect. Lab / Micro Data Result Diagrams: 07/09/21 07:40 07/09/21 07:40 Labs: Laboratory Results - last 24 hr 07/09/21 07:40: WBC 21.1 H, RBC 3.86 L, Hgb 13.2, Hct 35.7 L, MCV 92.5, MCH 34.2 H, MCHC 37.0 H, RDW Std Deviation 38.9, RDW Coeff of Angy 11.4 L, Plt Count 282, MPV 9.6, Immature Gran % (Auto) 1.000 H, Neut % (Auto) 86.2 H, Lymph % (Auto) 2.0 L, [place] % (Auto) 10.6 H, Eos % (Auto) 0.0, Baso % (Auto) 0.2, Absolute Neuts (auto) 18.2 H, Absolute Lymphs (auto) 0.42 L, Nucleated RBC % 0, Differential Comment COMMENT, Diff Path Review September foll 07/09/21 07:40: Sodium 128 L, Potassium 3.7, Chloride 95 L, Carbon Dioxide 23.0, Anion Gap 10, BUN 20 H, Creatinine 0.79, Estim Creat Clear Calc 60.83, Est GFR (MDRD) Af Amer 121, Est GFR (MDRD) Non-Af 100, BUN/Creatinine Ratio 25.3 H, Gluc ose 130 H, Calcium 8.6, Total Bilirubin 1.00, AST 42 H, ALT 39, Alkaline Phosphatase 65, Total Protein 7.1, Albumin 2.9 L, Globulin 4.2, Albumin/Globulin Ratio 0.7 L, Lipase 58 L Radiology Impression Abdomen/Pelvis CT 07/09/21 08:12 IMPRESSION: 1. 16 mm gallstone possibly impacted within the neck of the gallbladder associated with changes consistent with acute cholecystitis. 2. Small bowel ileus. 3. Diverticulosis coli. 4. 2 cm right renal lesion suggestive of neoplasm. Individualized dose optimization techniques were used for this CT. at 0850 Reported and signed by: Marco Rojas MD Electronically Signed: Marco Rojas MD at 8:49 EST , Charges/Coding Visit Charges Office Visits / Consults: [id number] IP Consult L4 Procedures Hospitalists Procedures: [id number] Advncd Care Plan 30 Min
--- NOTE | 2021-07-09 10:10 | HP.PCM_ITS ---
HPI - General HPI Narrative DEX BAEZ, is a 80 M who presents [facility] for complaints of acutely?worsened abdominal pain. He is known to me from prior ER consultation on 07/07/2021 for the same complaint, but he had a reassuring clinical exam and was thus given outpatient follow-up on 07/10/2021. He states that his pain acutely worsened yesterday after going for some brain scans. He had lunch and then began with abdominal pain that localized to the right upper quadrant. The pain gained in intensity and was associated with mild nausea. When it did not remit overnight, he decided to present for reevaluation. His ER work-up is notable for increased leukocytosis now of 21,[address] imaging does show evidence of pericholecystic fluid (not seen on patient's imaging from 2 days ago). [facility] Medical History (Updated 07/09/21 @ 09:[address] Mckay Perdomo, DO) Atherosclerotic heart disease of [place] coronary artery without angina pectoris BPH (benign prostatic hyperplasia) Essential (primary) hypertension ETOH abuse Hyperlipidemia Nonrheumatic mitral valve regurgitation Obesity (BMI 30.0-34.9) GAVINO (obstructive sleep apnea) Overweight (BMI 25.0-29.9) PAF (paroxysmal atrial fibrillation) Proteinuria Seizures Home Medications fenofibrate 160 mg PO DAILY 05/07/13 [History Last Taken 05/07/13] simvastatin 20 mg PO QHS 05/07/13 [History Last Taken 05/07/13] ascorbic acid (vitamin C) 500 mg PO DAILY@0800 11/14/14 [History Last Taken Unknown] multivitamin with folic acid 1 tab PO DAILY 11/14/14 [History Last Taken Unknown] selenium 200 mcg PO DAILY 11/14/14 [History Last Taken Unknown] vitamin B complex 1 ea PO DAILY 11/14/14 [History Last Taken Unknown] vitamin E (dl, acetate) 400 units PO DAILY 11/14/14 [History Last Taken Unknown] amlodipine 10 mg tablet 10 mg PO QDAY 09/12/17 [History Last Taken 11/14/19 05:30] cholecalciferol (vitamin D3) 25 mcg (1,000 unit) tablet 1,000 unit PO QDAY 0 09/12/17 [History Last Taken Unknown] omega-3 fatty acids 1,000 mg capsule See Rx Instructions .ROUTE .COMPLEX cap 09/15/17 [History Last Taken 11/08/19] losartan 100 mg tablet 100 mg PO DAILY 09/26/18 [History Last Taken Unknown] L.acidoph, paracasei,B. lactis 1 ea PO DAILY 11/07/19 [History Last Taken Unknown] aspirin 81 mg tablet,delayed release 81 mg PO DAILY 05/27/20 [History Last Taken Unknown] furosemide 20 mg tablet 20 mg PO DAILY tab 05/27/20 [History Last Taken Unknown] metoprolol succinate 100 mg tablet,extended release 24 hr 50 mg PO QDAY tab 12/09/20 [History Last Taken Unknown] lacosamide 100 mg tablet See Rx Instructions .ROUTE .COMPLEX #0 tab 06/23/21 [Rx Last Taken Unknown] spironolactone 25 mg tablet 25 mg PO DAILY 06/23/21 [History Last Taken Unknown] zonisamide 100 mg capsule 100 mg PO .COMPLEX #42 cap 07/07/21 [Rx Last Taken Unknown] zonisamide 100 mg capsule 100 mg PO TID #270 cap 07/07/21 [Rx Last Taken Unknown] Allergy/AdvReac Type Severity Reaction Status Date / Time hydrocodone bitartrate Allergy Mild Hives Verified 07/09/21 06:26 [From Vicodin] chlorhexidine AdvReac Unknown Verified 07/09/21 06:26 Family History Mother CVA (cerebral vascular accident) Father CAD (coronary artery disease) Hx CABG Myocardial infarction Brother Myocardial infarction CAD (coronary artery disease) Hypertension Sister CAD (coronary artery disease) Hx CABG Hypertension Surgical History History of coronary artery stent placement (05/09/13) History of hernia repair History of surgery on arm History of transurethral resection of prostate Social History Smoking Status: Never smoker Smokeless tobacco user: chewing tobacco Electronic Cigarette Use: not used second hand exposure: Yes alcohol intake: former year quit: 2014 substance use type: does not use caffeine: Yes Type: carbonated beverages 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 do you feel safe at home: Yes Vital Signs Vital Signs Vital Signs: 07/09/21 06:20 07/09/21 09:06 07/09/21 09:58 Temperature 100.3 F H Temperature Source Oral Pulse Rate 75 87 68 Respiratory Rate 18 16 30 H Blood Pressure 158/79 H 152/78 H 152/90 H Blood Pressure Mean 105 102 110 Pulse Ox 95 99 94 Oxygen Delivery Method Room Air Room Air Weight Weight: 214 lb 8.156 oz Body Mass Index (BMI) 30.7 Physical Exam Const alert and oriented x3 Constitutional Narrative: Distress from abdominal discomfort and mild respiratory distress and inability to take deep breath General Appearance: cooperative Resp Resp Narrative: Increased work of breathing as patient is not able to deeply inspire with his abdominal discomfort GI GI Narrative: Mildly distended, exquisitely tender to palpation in the right upper quadrant. Positive Campa sign Results Lab / Micro Data Result Diagrams: 07/09/21 07:40 07/09/21 07:40 Labs: Laboratory Results - last 24 hr 07/09/21 07:40: WBC 21.1 H, RBC 3.86 L, Hgb 13.2, Hct 35.7 L, MCV 92.5, MCH 34.2 H, MCHC 37.0 H, RDW Std Deviation 38.9, RDW Coeff of Angy 11.4 L, Plt Count 282, MPV 9.6, Immature Gran % (Auto) 1.000 H, Neut % (Auto) 86.2 H, Lymph % (Auto) 2.0 L, [place] % (Auto) 10.6 H, Eos % (Auto) 0.0, Baso % (Auto) 0.2, Absolute Neuts (auto) 18.2 H, Absolute Lymphs (auto) 0.42 L, Nucleated RBC % 0, Differential Comment COMMENT, Diff Path Review September07/09/21 07:40: Sodium 128 L, Potassium 3.7, Chloride 95 L, Carbon Dioxide 23.0, Anion Gap 10, BUN 20 H, Creatinine 0.79, Estim Creat Clear Calc 60.83, Est GFR (MDRD) Af Amer 121, Est GFR (MDRD) Non-Af 100, BUN/Creatinine Ratio 25.3 H, Glucose 130 H, Calcium 8.6, Total Bilirubin 1.00, AST 42 H, ALT 39, Alkaline Phosphatase 65, Total Protein 7.1, Albumin 2.9 L, Globulin 4.2, Albumin/Globulin Ratio 0.7 L, Lipase 58 L Radiology Impression Abdomen/Pelvis CT 07/09/21 08:12 IMPRESSION: 1. 16 mm gallstone possibly impacted within the neck of the gallbladder associated with changes consistent with acute cholecystitis. 2. Small bowel ileus. 3. Diverticulosis coli. 4. 2 cm right renal lesion suggestive of neoplasm. Individualized dose optimization techniques were used for this CT. at 0850 Reported and signed by: Marco Rojas MD Electronically Signed: Marco Rojas MD at 8:49 EST , Assessment & Plan Assessment/Plan (1) Acute cholecystitis: PLAN: This is an 80-year-old male with complex past medical history who presents with clinical signs and symptoms of acute cholecystitis. His presentation 2 days ago showed only diffuse abdominal discomfort that was not worse with exam, but his pain has become localized, his leukocytosis worsened, and he now has evidence of pericholecystic fluid on his CT imaging. With these changes, I have recommended proceeding to the operating room for urgent emergent laparoscopic cholecystectomy with possible cholangiogram. Patient accepts this recommendation and wishes to proceed as soon as possible for the recommended pro cedure. In the interim, I have asked emergency medicine to begin IV antibiotic therapy, apply pulse oximetry, and consult the hospitalist service given the patient's numerous medical comorbidities. Charges/Coding Visit Charges Inpatient E&M: 86475 Init Hosp L3
[2021-07-09] MEDS: dilTIAZem 25 MG/5 ML Vial IV BOLUS (10:37)
--- NOTE | 2021-07-09 10:44 | EKG12_ITS ---
Test Reason : TACYCARDIA Blood Pressure : / mmHG Vent. Rate : 137 BPM Atrial Rate : 344 BPM P-R Int : 000 ms QRS Dur : 084 ms QT Int : 298 ms P-R-T Axes : 000 -11 062 degrees QTc Int : 449 ms Atrial fibrillation / Atrial flutter Left ventricular hypertrophy Nonspecific ST and T wave abnormality Abnormal ECG Confirmed by DAVID ACOSTA, HERBERT ([id number]), medical transcription editor NEO LIGHT ([id number]) on 07/10/2021 11:05:05 AM Referred By: GISSEL Confirmed By:HERBERT HERNANDEZ MD
--- NOTE | 2021-07-09 11:16 | CM.ED ---
RN CM Assessment Introduced role of RN CM to patient and patient Serena at bedside. Patient is alert, oriented and able to participate in RN CM Assessment. Care providers, pharmacy, and demographics verified. Issue: CC: Abd Pain. Plan: emergent laparoscopic cholecystectomy with possible cholangiogram CT-show evidence of pericholecystic fluid (not seen on patient's imaging from 2 days ago). 1. 16 mm gallstone possibly impacted within the neck of the gallbladder associated with changes consistent with acute cholecystitis. 2. Small bowel ileus. 3. Diverticulosis coli. 4. 2 cm right renal lesion suggestive of neoplasm. Re-Admit: No Barriers/Issues: None PCP: Brittany Combs Specialists: Cardio- Vida, Neuro- [place], Pephro- Emma, Uro- Darryl, Sleep Dr Preferred Pharmacy: [facility] or [facility] if [facility] closed. Uses [facility] for maintenance medications. Insurance: [employer] [facility] Rx Benefit: Yes LNOK: Alli Hanks LW/HPOA: [facility] has both, aware not on file at [facility]. HPOA-Alli Hanks Living Arrangements: Lives with and adult son lives with them in a 2SH. Patient Bedroom on ground level. 2 steps to enter home. ADL?s: Ambulates with waking stick for further distances/outside, otherwise independent. Independent with ADLs/IADLs. Transportation: Both patient and Serena drive. Alli Lyons will transport upon DC. DME: [facility]. HHC: None SNF: None Goal: Home and does not think will have any needs, issues, or concerns with going home at this point. [facility] plan is to go to surgery around 1600 today. DC PLAN: Home with no anticipated needs identified at this time. MARIXA Mendez
--- NOTE | 2021-07-09 11:24 | ED.RN ---
This patient was all ready to leave ED to go to OR, due to patient heart rhythm and rate Dr. Perdomo wanted patient to be seen by hospitalist. Medicated with Cardizem as noted. Patient remains in ED. Zosyn delayed as dose was sent to OR as he was to be there.
--- NOTE | 2021-07-09 11:39 | ED.RN ---
Spoke with [facility], they will be making contact with Dr. Rodriguez and Dr. Howard for admission orders.
--- NOTE | 2021-07-09 13:41 | ECHOCS_ITS ---
Reason For Study: AFIB Procedure This was a 2D Doppler, Color Flow transthoracic echocardiogram. The study was technically difficult. Contrast injection was performed. Limited valvular info d/t AFIB/ heart rate,. Exam performed portable in patient room. Left Ventricle Normal LV size. Mild concentric left ventricular hypertrophy. Sigmoid septum. Left ventricular systolic function is normal. The estimated ejection fraction is 70 %. Unable to assess diastolic dysfunction. No regional wall motion abnormalities noted. Right Ventricle Normal RV size. Normal systolic function. Atria The left atrium is moderately enlarged. Normal right atrium. No doppler evidence for ASD. Mitral Valve There is no mitral annular calcification. Normal mitral valve. Mild-Moderate (1-2+) mitral valve insufficiency. Tricuspid Valve Normal tricuspid valve. Mild tricuspid valve insufficiency. Right ventricular systolic pressure estimated to be 37 mmHg. Aortic Valve Trisinus/trileaflet aortic valve. Mild diffuse aortic valve thickening. Moderate focal aortic valve calcification. Aortic sclerosis, no stenosis. Pulmonic Valve The pulmonic valve is not well visualized. Great Vessels Normal sized aortic root. Pericardium/Pleural No pericardial effusion. Medication Diluted definity 2.0ml given slow IV push to enhance endocardial definition. MMode/2D Measurements & Calculations LVIDd: 3.9 cm IVSd: 1.3 cm Ao root diam: 3.8 cm LVIDs: 2.7 cm LVPWd: 1.3 cm RVDd: 3.6 cm FS: 30.8 % LAV(MOD-bp): 76.0 ml LVAd ap4: 26.8 cm2 LVAd ap2: 23.0 cm2 LAV(MOD-bp) Indexed: 35.4 ml/m2 LVLd ap4: 7.2 cm LVLd ap2: 7.2 cm LAV(MOD-sp2): 78.6 ml EDV(MOD-sp4): 80.0 ml EDV(MOD-sp2): 60.5 ml LAV(MOD-sp4): 65.9 ml EDV(sp4-el): 84.5 ml EDV(sp2-el): 62.1 ml LVAs ap4: 13.3 cm2 LVAs ap2: 10.5 cm2 LVLs ap4: 5.3 cm LVLs ap2: 5.4 cm ESV(MOD-sp4): 27.3 ml ESV(MOD-sp2): 16.3 ml ESV(sp4-el): 28.4 ml ESV(sp2-el): 17.4 ml EF(MOD-sp4): 65.9 % EF(MOD-sp2): 73.1 % EF(sp4-el): 66.4 % SV(MOD-sp4): 52.7 ml SV(MOD-sp2): 44.3 ml SV(sp4-el): 56.1 ml LA A4 area: 21.4 cm2 LA dimension(2D): 4.9 cm RA A4 area: 14.4 cm2 Doppler Measurements & Calculations Ao V2 max: 175.8 cm/sec AI max erasmo: 270.2 cm/sec LV V1 max: 144.9 cm/sec Ao max P.4 mmHg AI max P.2 mmHg LV V1 max P.5 mmHg AI dec slope: 79.8 cm/sec2 AI P1/2t: 992.2 msec TR max erasmo: 292.8 cm/sec TR max P.3 mmHg ECHO/Echo Complete W/ Contrast Interpretation Summary The study was technically difficult. Contrast injection was performed. Left ventricular systolic function is normal. The estimated ejection fraction is 70 %. Mild concentric left ventricular hypertrophy. Sigmoid septum. Mild-Moderate (1-2+) mitral valve insufficiency. Mild tricuspid valve insufficiency. Aortic sclerosis, no stenosis. Right ventricular systolic pressure estimated to be 37 mmHg. Unable to assess diastolic dysfunction. Ordering Physician: Avel Howard Referring Physician: TONIA SWIFT Performed By: Swapna Martin, RDCS, RVT
[2021-07-09 14:13] LABS: BNP,B-Type NATRIURETIC PEPTIDE 670.5 pg/mL (0-100)
[2021-07-09 14:28] LABS: Troponin-I HS 20 pg/mL (3.0-78.0)
[2021-07-09] MEDS: dilTIAZem 25 MG/5 ML Vial 20 MG IV BOLUS (14:39)
[2021-07-09] MEDS: 0.9% Normal Saline 1,000 ML 125 ML IV ×2 (14:53→18:45)
[2021-07-09 15:27] LABS: Pathologist Review Reviewed
[2021-07-09] MEDS: HYDROmorphone 0.5 MG/0.5 ML SYRINGE IV (15:45)
--- NOTE | 2021-07-09 16:11 | NURSING ---
pt off floor for surgery at this time
[2021-07-09 16:36] LABS: Troponin-I HS 26 pg/mL (3.0-78.0)
[2021-07-09] MEDS: Bupivacaine Mpf 0.5% 30 ML VIAL (17:28)
--- NOTE | 2021-07-09 20:35 | PCM.OPRPT ---
Report of Operation Date of Procedure: 07/09/21 Pre-Operative Diagnosis: Acute cholecystitis Post-Operative Diagnosis: Acute gangrenous cholecystitis Surgery/Procedure Performed:: Laparoscopic cholecystectomy Surgeon: Luis Rodriguez supervisor metal placing: Shannon Verdin Type of Anesthesia: General/Supplemental Anesthesiologist: Mckay Ireland Estimated Blood Loss (mL): 150 Description of Procedure: After proper identification in the preoperative holding area, the patient was brought to the operating room where he was positioned supine on the operating room table. Preoperative had been antibiotics administered and SCDs were connected. General anesthesia was then induced and an orogastric tube was placed to decompress the stomach. Patient's abdomen was prepped and draped in usual sterile fashion. A formal timeout was conducted to confirm both patient and the procedure. Procedure was begun with a epigastric incision (given the patient's prior mesh placement for an umbilical hernia) which was extended deeply down to the level of the fascia. The fascia was elevated and incised, as well as the peritoneum. A finger sweep was performed to ensure there were no underlying adhesions and a 12 mm balloon trocar was inserted. Pneumoperitoneum was established at 15 mmHg. Laparoscope was inserted and revealed no inadvertent injury to the viscera below but it was clear that there was acute inflammatory process between the patient's hepatic flexure and the anterior abdominal wall and the gallbladder was not immediately visible. A 5 mm trocar was placed in the right upper quadrant under direct visualization and a blunt grasper was used to sweep down the colon. 2 additional trochars were placed in the epigastrium (12 mm) and in the right upper quadrant (5 mm) under direct visualization. The gallbladder was visualized with severe inflammation and partial gangrene at the most distal aspect of the gallbladder fundus. It was exceptionally taut with edema and therefore the suction railroad inspector was used to decompress the gallbladder so it could be manipulated. The gallbladder fundus was then grasped and elevated cephalad. Then, using careful dissection, the peritoneum was opened and the structures of the hepatocystic triangle were delineated. Elevating it from the duodenum and other antonia structures proved exceptionally difficult; as traction was applied to the gallbladder infundibulum, a rent was made in the gallbladder wall resulting inadvertent spillage of bile and gallbladder contents. These contents were promptly suctioned free of the right upper quadrant and a grasper was placed across the opening to occlude it. Fortuitously this facilitated improved manipulation of the gallbladder. I focused dissection on the posterior aspect of the gallbladder and opened the peritoneum all the way to the hilar plate. Anteriorly there was a small tubular structure that seem too diminutive to represent a cystic artery but this was singly clipped and divided. I gradually came down upon the crotch of the gallbladder and was able to bluntly encircle what I deemed to be the cystic duct. This duct terminated into a second duct at an oblique angle?presumably the common bile duct. A third tubular structure clearly terminated in the gallbladder and arose from lateral to the common bile duct?this was determined to be the cystic artery. A clip was placed proximally across the presumed cystic duct and I attempted to make it a partial ductotomy. Unfortunately the initial EndoShears failed to cut the tissue and replacement scissors were used but when I attempted to make a partial transection, the duct was immediately fully transected and the gallbladder was avulsed from the cystic duct stump. I made several attempts with different cholangiocatheters to intubate this duct stump, but was unsuccessful. There was bile refluxing back through this duct and it was clearly entering a second ductal structure. I undertook additional dissection of the gallbladder back to the hilar plate to confirm the anatomy and elected to abort the cholangiogram and clip the cystic duct stump. I was careful to avoid impingement of the common bile duct lumen during clipping of the cystic duct. 2 x 5 mm clips were placed across the stump with good occlusion. The identified cystic artery was doubly clipped and divided as well. The gallbladder was then carefully taken off the gallbladder fossa with the use of cautery. Selective electrocautery was used to obtain hemostasis in the gallbladder fossa. A small section of fibrillar was placed at the proximal aspect of the gallbladder fossa to assist with this hemostasis. The gallbladder was placed in an Endo Catch bag and removed from the peritoneum (after port site was bluntly enlarged). Morison's pouch was irrigated and the effluent was suctioned free of the peritoneum. Hemostasis was again confirmed (and our fibrillar agent our appeared clean and dry). Pneumoperitoneum was evacuated and the rectus muscle that had been in the epigastrium (at the subxiphoid port site) was reapproximated with interrupted 3-0 Vicryl. The fascia of the 12 mm port sites was closed with #1 PDS in a [id number] fashion. A total of 22 mL of anesthetic was injected at the port sites for postoperative pain control. The skin of each port site was then closed in subcuticular fashion using 4-0 Monocryl. Steri-Strips and bandages were applied as dressings. Patient tolerated the procedure well without any apparent complications. On emergence from their anesthetic the patient was taken to PACU for ongoing recovery. Procedures Digestive [id number]: [id number] Laparoscopic cholecystectomy
[2021-07-09 21:33] LABS: Troponin-I HS 20 pg/mL (3.0-78.0)
[2021-07-10] VITALS (30 sets, daily range): BP systolic 111–151; BP diastolic 58–83; PULSE 72–113; RESP 22–39; TEMP 36.5–37.1; O2SAT 90–97; BMI 29.5
[2021-07-10] MEDS: Ketorolac 15 MG/ML Vial IV ×4 (00:33→17:46)
[2021-07-10] MEDS: 0.9% Normal Saline 1,000 ML 125 ML IV ×3 (05:34→20:59)
[2021-07-10 06:13] LABS: Absolute Lymphocyte Count 0.47 X10^3/uL (0.83-4.51); Absolute Neutrophil Count 15.4 X10^3/uL (2.0-7.7); Basophil# 0.05 X10^3/uL; Basophil% 0.3 % (0-1); Hematocrit 32.2 % (40-54); Hemoglobin 11.4 g/dL (13.0-16.5); Lymphocyte # 0.47 X10^3/ul (0.83-4.51); Lymphocyte % 2.7 % (19-41); Mean Corp Hgb Conc 35.4 g/dL (32-36); Mean Corpuscular Hgb 33.9 pg (27.0-32.0); Mean Corpuscular Volume 95.8 fL (80-94); Mean Platelet Vol. 9.9 fl (6.2-12.0); Monocyte# 1.61 X10^3/uL; Monocyte% 9.1 % (0-10); NRBC Flagged by Analyzer 0 % (0-5); Neutrophil # 15.36 X10^3/uL (2.7-7.7); Neutrophil % 87.2 % (47-70); POSITIVE DIFFERENTIAL YES; Platelet Count 289 K/mm3 (150-450); RBC Distribution Width CV 11.9 % (11.6-14.6); Red Blood Count 3.36 M/mm3 (4.6-6.2); White Blood Count 17.6 K/mm3 (4.4-11.0)
[2021-07-10 06:23] LABS: Differential Indicated SCAN CRITERIA MET
[2021-07-10 06:52] LABS: ALB/GLOB Ratio 0.6 RATIO (0.9-2.4); AST(SGOT) 77 U/L (15-37); Alanine Aminotransfer ALT/SGPT 77 U/L (16-61); Albumin, Serum 2.1 g/dL (3.2-5.0); Alkaline Phosphatase 56 U/L (45-117); Anion Gap 9 (5-15); BUN 25 mg/dL (7-18); BUN/Creat Ratio 25.1 RATIO (10-20); Calcium,Total 7.4 mg/dL (8.5-10.1); Chloride 103 mmol/L (98-107); Cholesterol 61 mg/dL (200); EST Glomerular Filtration Rate 76 mL/min (>60); Est Glom Filt Rate - Afr Amer 93 mL/min (>60); Estimated Creatinine Clearance 60.83 ml/min; Globulin 3.6 g/dL (2.2-4.2); Glucose 149 mg/dL (74-106); High Density Lipoprotein 23 mg/dL; Potassium 3.7 mmol/L (3.5-5.1); Protein, Total 5.7 g/dL (6.4-8.2); Sodium Level 133 mmol/L (136-145); Thyroid Stim Hormone (TSH) 0.64 uIU/mL (0.358-3.74); Triglycerides 68 mg/dL; Very Low Density Lipoprotein 14 mg/dL (5-40)
--- NOTE | 2021-07-10 07:54 | PN.SURG_ITS ---
Subjective Subjective Patient seen and examined during AM rounds. He is sitting upright and denies any acute discomfort. He states that he could sleep forever. He states that he feels some relief of his symptoms from yesterday. He denies a slight appetite. He has had very little bowel function with just minimal flatus this morning. Objective Data Objective Data Vital Signs: Vital Signs Temp Pulse Resp BP Pulse Ox 98.7 F 92 22 H 111/61 96 07/10/21 04:00 07/10/21 07:00 07/10/21 07:00 07/10/21 07:00 07/10/21 07:00 Oxygen Flow Rate (L/min) 4 Oxygen Delivery Method Nasal Cannula Weight: 206 lb 2.115 oz Body Mass Index (BMI) 29.5 Intake & Output: Intake and Output for Last 24 Hours 07/08/21 07/09/21 07/10/21 23:59 23:59 23:59 Intake Total 2282.24 / 2297.24 1284.00 / 1284.00 Balance 2282.24 / 2297.24 1284.00 / 1284.00 Lab / Micro Data Result Diagrams: 07/10/21 05:28 07/10/21 05:28 Labs: Laboratory Results - last 24 hr 07/09/21 07:40: Differential Comment COMMENT, Diff Path Review Reviewed 07/09/21 07:40: Sodium 128 L, Potassium 3.7, Chloride 95 L, Carbon Dioxide 23.0, Anion Gap 10, BUN 20 H, Creatinine 0.79, Estim Creat Clear Calc 60.83, Est GFR (MDRD) Af Amer 121, Est GFR (MDRD) Non-Af 100, BUN/Creatinine Ratio 25.3 H, Glucose 130 H, Calcium 8.6, Total Bilirubin 1.00, AST 42 H, ALT 39, Alkaline Phosphatase 65, Total Protein 7.1, Albumin 2.9 L, Globulin 4.2, Albumin/Globulin Ratio 0.7 L, Lipase 58 L 07/09/21 07:40: B-Natriuretic Peptide 670.5 H 07/09/21 13:50: Troponin I High Sens 20 07/09/21 16:00: Troponin I High Sens 26 07/09/21 21:05: Troponin I High Sens 07/10/21 05:28: WBC 17.6 H, RBC 3.36 L, Hgb 11.4 L, Hct 32.2 L, MCV 95.8 H, MCH 33.9 H, MCHC 35.4, RDW Std Deviation 41.0, RDW Coeff of Angy 11.9, Plt Count 289, MPV 9.9, Immature Gran % (Auto) 0.700, Neut % (Auto) 87.2 H, Lymph % (Auto) 2.7 L, [place] % (Auto) 9.1, Eos % (Auto) 0.0, Baso % (Auto) 0.3, Absolute Neuts (auto) 15.4 H, Absolute Lymphs (auto) 0.47 L, Nucleated RBC % 0, Diff Path Review September07/10/21 05:28: Sodium 133 L, Potassium 3.7, Chloride 103, Carbon Dioxide 21.0, Anion Gap 9, BUN 25 H, Creatinine 1.00, Estim Creat Clear Calc 60.83, Est GFR ( MDRD) Af Amer 93, Est GFR (MDRD) Non-Af 76, BUN/Creatinine Ratio 25.1 H, Glucose 149 H, Calcium 7.4 L, Total Bilirubin 0.70, AST 77 H, ALT 77 H, Alkaline Phosphatase 56, Total Protein 5.7 L, Albumin 2.1 L, Globulin 3.6, Albumin /Globulin Ratio 0.6 L, Triglycerides 68, Cholesterol 61, LDL Cholesterol 24, VLDL Cholesterol 14, HDL Cholesterol 23 L, TSH 0.64 Radiography Diagnostic Testing: Radiology Impression Abdomen/Pelvis CT 07/09/21 08:12 IMPRESSION: 1. 16 mm gallstone possibly impacted within the neck of the gallbladder associated with changes consistent with acute cholecystitis. 2. Small bowel ileus. 3. Diverticulosis coli. 4. 2 cm right renal lesion suggestive of neoplasm. Individualized dose optimization techniques were used for this CT. at 0850 Reported and signed by: Marco Rojas MD Electronically Signed: Marco Rojas MD at 8:49 EST , Echocardiogram 07/09/21 13:41 Interpretation Summary The study was technically difficult. Contrast injection was performed. Left ventricular systolic function is normal. The estimated ejection fraction is 70 %. Mild concentric left ventricular hypertrophy. Sigmoid septum. Mild-Moderate (1-2+) mitral valve insufficiency. Mild tricuspid valve insufficiency. Aortic sclerosis, no stenosis. Right ventricular systolic pressure estimated to be 37 mmHg. Unable to assess diastolic dysfunction. Ordering Physician: Avel Howard Referring Physician: TONIA SWIFT Performed By: Swapna Martin, JEREMIE, RVT Physical Exam Const oriented x3 and no apparent distress Resp normal respiratory effort GI GI Narrative: Patient's abdomen is distended. Surgical port sites remain covered with operative dressings that are clean dry and intact. Patient is minimally tender about port sites and otherwise nontender with palpation of his abdomen Assessment & Plan Assessment & Plan (1) Acute cholecystitis: Problem Details: Status post laparoscopic cholecystectomy 07/09/2021 Plan: Patient appears quite drowsy today. He denies any significant abdominal discomfort. He is experiencing minimal flatus and has abdominal distention consistent with a infection?related ileus (this was noted on patient's CT imaging prior to surgery). I have encouraged him to begin mobilization today for hastening resolution of ileus, improved pulmonary toilet, and DVT risk reduction. Neuro: As needed Dilaudid, as needed tramadol, as needed acetaminophen. Medicine has ordered patient's antiseizure medications as IV formulation given questionable enteral absorption. Ultimately looking to transition per neurologist. Pulm/CV: Supplemental O2 as needed; wean as able. Patient working with incentive spirometer. Currently requiring Cardizem drip for A. fib?heart rate much improved over yesterday and blood pressures remain normal. FEN/GI: Continue clear liquid diet and await return of bowel function. Add as needed Tums and scheduled famotidine given complaints of heartburn. Monitor daily labs. Heme/ID: Hemoglobin slightly down trended but consistent with postoperative state and some hemodilution. We will continue to trend CBC. White blood cell count down trended today. We will continue Zosyn given some mild intraoperative contamination. : Patient with some urinary retention postop requiring straight catheterization. Patient is asked to spend some time in a chair and mobilize in the hallways. May need to replace Ellis catheter if retention persists. Endo: No current issues. Proph: Continue SCDs, hold on chemoprophylaxis at this time given fresh postoperative state. Ambulation encouraged. Dispo: Continue inpatient care (2) Ileus due to infection:
--- NOTE | 2021-07-10 08:05 | PCM.PN.HOSP ---
Subjective Subjective Seen and examined. Follow-up for A. fib with RVR and idiopathic surgery. Patient had laparoscopic cholecystectomy last night on 07/09. Objective Data Objective Data Vital Signs: Vital Signs Temp Pulse Resp BP Pulse Ox 98.7 F 92 22 H 111/61 96 07/10/21 04:00 07/10/21 07:00 07/10/21 07:00 07/10/21 07:00 07/10/21 07:00 Oxygen Flow Rate (L/min) 4 Oxygen Delivery Method Nasal Cannula Weight: 206 lb 2.115 oz Body Mass Index (BMI) 29.5 Intake & Output: Intake and Output for Last 24 Hours 07/08/21 07/09/21 07/10/21 23:59 23:59 23:59 Intake Total 2282.24 / 2297.24 1284.00 / 1284.00 Balance 2282.24 / 2297.24 1284.00 / 1284.00 Lab / Micro Data Result Diagrams: 07/10/21 05:28 07/10/21 05:28 Labs: Laboratory Results - last 24 hr 07/09/21 07:40: Differential Comment COMMENT, Diff Path Review Reviewed 07/09/21 07:40: Sodium 128 L, Potassium 3.7, Chloride 95 L, Carbon Dioxide 23.0, Anion Gap 10, BUN 20 H, Creatinine 0.79, Estim Creat Clear Calc 60.83, Est GFR (MDRD) Af Amer 121, Est GFR (MDRD) Non-Af 100, BUN/Creatinine Ratio 25.3 H, Glucose 130 H, Calcium 8.6, Total Bilirubin 1.00, AST 42 H, ALT 39, Alkaline Phosphatase 65, Total Protein 7.1, Albumin 2.9 L, Globulin 4.2, Albumin/Globulin Ratio 0.7 L, Lipase 58 L 07/09/21 07:40: B-Natriuretic Peptide 670.5 H 07/09/21 13:50: Troponin I High Sens 20 07/09/21 16:00: Troponin I High Sens 26 07/09/21 21:05: Troponin I High Sens 07/10/21 05:28: WBC 17.6 H, RBC 3.36 L, Hgb 11.4 L, Hct 32.2 L, MCV 95.8 H, MCH 33.9 H, MCHC 35.4, RDW Std Deviation 41.0, RDW Coeff of Angy 11.9, Plt Count 289, MPV 9.9, Immature Gran % (Auto) 0.700, Neut % (Auto) 87.2 H, Lymph % (Auto) 2.7 L, [place] % (Auto) 9.1, Eos % (Auto) 0.0, Baso % (Auto) 0.3, Absolute Neuts (auto) 15.4 H, Absolute Lymphs (auto) 0.47 L, Nucleated RBC % 0, Diff Path Review September07/10/21 05:28: Sodium 133 L, Potassium 3.7, Chloride 103, Carbon Dioxide 21.0, Anion Gap 9, BUN 25 H, Creatinine 1.00, Estim Creat Clear Calc 60.83, Est GFR (MDRD) Af Amer 93, Est GFR (MDRD) Non-Af 76, BUN/Creatinine Ratio 25.1 H, Glucose 149 H, Calcium 7.4 L, Total Bilirubin 0.70, AST 77 H, ALT 77 H, Alkaline Phosphatase 56, Total Protein 5.7 L, Albumin 2.1 L, Globulin 3.6, Albumin/Globulin Ratio 0.6 L, Triglycerides 68, Cholesterol 61, LDL Cholesterol 24, VLDL Cholesterol 14, HDL Cholesterol 23 L, TSH 0.64 Radiography Diagnostic Testing: Radiology Impression Abdomen/Pelvis CT 07/09/21 08:12 IMPRESSION: 1. 16 mm gallstone possibly impacted within the neck of the gallbladder associated with changes consistent with acute cholecystitis. 2. Small bowel ileus. 3. Diverticulosis coli. 4. 2 cm right renal lesion suggestive of neoplasm. Individualized dose optimization techniques were used for this CT. at 0850 Reported and signed by: Marco Rojas MD Electronically Signed: Marco Rojas MD at 8:49 EST , Echocardiogram 07/09/21 13:41 Interpretation Summary The study was technically difficult. Contrast injection was performed. Left ventricular systolic function is normal. The estimated ejection fraction is 70 %. Mild concentric left ventricular hypertrophy. Sigmoid septum. Mild-Moderate (1-2+) mitral valve insufficiency. Mild tricuspid valve insufficiency. Aortic sclerosis, no stenosis. Right ventricular systolic pressure estimated to be 37 mmHg. Unable to assess diastolic dysfunction. Ordering Physician: Avel Howard Referring Physician: TONIA SWIFT Performed By: Swapna Martin, JEREMIE, RVT Physical Exam Narrative General: Alert, Oriented x3, Cooperative. HEENT: Atraumatic, PERRLA, EOMI, Normocephalic. icterus negative. Oral: Oral mucosa MOIST. No Gingival or Mucosal Lesions/ Ulcerations Neck: Supple, No JVD, Negative Carotid Bruits Lungs: Air entry diminished in bilateral lung bases. No crepitation/rhonchi Cardiovascular: Irregular rate and rhythm, A. fib. Tachycardia controlled normal S1, Normal S2, systolic murmur over LLSB and cardiac apex. Abdomen: Abdomen distended, tenderness is much improved. Status post lap jessee. Ports dressing dry. Bowel sounds sluggish. No palpable mass. : Denies new urinary tract symptoms. No renal angle tenderness. No suprapubic tenderness. Extremities: No ankle/pedal edema, Capillary Refill Less than 3 Seconds Skin: No rashes, No breakdown Musculoskeletal: No Tenderness to Palpation of Joints or Extremities Neurological: Cranial nerves II-XII grossly intact, DTR 2+/4 and Symmetrical, Neuro grossly intact. No seizure Psych/Mental Status: Flat affect. Charges/Coding Visit Charges Inpatient E&M: 07162 Subs Hosp L3 Assessment/Plan Assessment/Plan (1) Acute cholecystitis: CODE(S): K81.0 - Acute cholecystitis (2) Epilepsy: CODE(S): G40.909 - Epilepsy, unspecified, not intractable, without status epilepticus (3) Paroxysmal atrial fibrillation with RVR: CODE(S): I48.0 - Paroxysmal atrial fibrillation PLAN: 1. Acute cholecystitis with cholelithiasis: Patient is being taken to the OR from ER for laparoscopic cholecystectomy. Patient seen by surgeon Dr. Luis Oviedo. Preop antibiotic. Pain control. Rest as per surgeon. Incentive spirometry. Intake and output monitoring. 07/10: Operative report reviewed. Acute gangrenous cholecystitis. Patient had laparoscopic cholecystectomy on 07/[address] Rodriguez. Leukocytosis improving. Left shift. Mild hyponatremia, improving. Sodium is around the baseline which is 134. Discussed with the surgeon. Mild ileus postoperative. We will continue IV medications for A. fib and seizure. Started on clear liquid diet. Continue incentive spirometry. 2. Proximal A. fib with RVR: Patient heart rate transiently decreased with Cardizem IV bolus but again tachycardic, in 130s. Started on Cardizem drip. Continue metoprolol after surgery if oral allowed or IV metoprolol as needed to control the heart rate. The patient had last echo in March 2013 reported EF 65%, trivial MR and TR. Serial troponin, TSH ordered. 07/10: Serial troponins negative. 2D echo reported EF 70%, mild to moderate MR, LV and RV function normal. Mild concentric LVH. RVSP [address] Oviedo 0.07/09 for emergent reporting of 2D echo prior to surgery. Patient also had raw surface of liver therefore anticoagulant not started. Continue IV Cardizem drip. Start oral once ileus is resolved and has better bowel absorption continue baby aspirin 3. Coronary artery disease status post cardiac stent, mid RCA in April 2013. In August 2017 patient had a stress test which shows EF 71%. No acute chest pain. Nitroglycerin sublingual as needed. Lipid profile LDL 24, HDL 23. BNP elevated. Patient does not have signs symptoms of acute heart failure. 4. 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 Patient follows Dr Smith and is in the process of titration down of Vimpat after initiation of lamotrigine. Continues zonisamide. Continue antiepileptic medication as prescribed by . 07/10: According to the neurologist, patient is on Vimpat 100 mg IV twice daily. Change to oral Vimpat 100 mg p.o. twice daily and start lamotrigine extended release 25 mg daily for 1 week and then stop. 5. CKD stage II with chronic proteinuria: Patient follows current miniature set designer Dr. Carter and he is on losartan. Estimated creatinine clearance more than 60 mils per minute Other comorbidities include essential hypertension, dyslipidemia: Patient on losartan, simvastatin and amlodipine. Medications to continue once patient is oral and blood pressure permits. VTE prophylaxis: Eliquis 5 mg twice daily when patient hemostasis is controlled after surgery. Patient was not on anticoagulant at home Total time of the visit including total time spent in counseling or coordination of care, (more than 50% of the total time, spent in obtaining medical information from nurses and other ancillary care providers,explaining to the patient about labs, imaging, diagnosis and management), discussion with ED physician consultants, review of labs and imaging is 40 minutes. Living will/advanced directive/end of life care: Patient does have living will or advanced directive. His is power of railway signal technician for health. After discussion of benefits/risks procedures involved with full code, DNR CC arrest and DNR CC, the patient and his opted for full code during surgery and for meaningful recovery if possible. He did not want to be on life support in the vegetable state for long time. Patient does want artificial life support including intubation, tube feed, ventilator and/chest compression, central venous catheter, vasopressor and DC shock if needed Total time spent in [id number] encounter in discussion of advanced directive 16 minutes.
[2021-07-10] MEDS: Ascorbic Acid 500 MG Tablet PO (10:05)
[2021-07-10] MEDS: Fenofibrate 145 MG Tablet PO (10:05)
[2021-07-10] MEDS: Losartan Potassium 100 MG Tablet PO (10:05)
[2021-07-10] MEDS: Metoprolol(XL)Succ 50 MG Tablet PO (10:05)
[2021-07-10] MEDS: Aspirin E.C. 81 MG Tablet PO (10:05)
[2021-07-10] MEDS: Multivitamins,Ther W-Minerals Tablet 1 TABLET PO (10:05)
[2021-07-10] MEDS: Cholecalciferol (VIT D3) 25 MCG TABLET (1,000 UNITS) PO (10:05)
[2021-07-10] MEDS: Furosemide 20 MG Tablet PO (10:06)
[2021-07-10] MEDS: Spironolactone 25 MG Tablet PO (10:06)
[2021-07-10] MEDS: amLODIPine 5 MG Tablet PO (10:06)
[2021-07-10] MEDS: Furosemide 20 MG/2 ML VIAL IV (14:41)
[2021-07-10] MEDS: Calcium Carbonate 500 MG Tablet PO (15:55)
[2021-07-10] MEDS: Famotidine 20 MG Tablet PO (15:55)
[2021-07-10] MEDS: Tamsulosin HCl 0.4 MG Capsule PO (16:20)
[2021-07-10] MEDS: 0.9% Saline Lock 10 ML Syringe IV (21:07)
[2021-07-10] MEDS: Atorvastatin Calcium 10 MG Tablet PO (21:08)
[2021-07-11] VITALS (19 sets, daily range): BP systolic 107–166; BP diastolic 62–95; PULSE 77–114; RESP 19–32; TEMP 36.5–37.2; O2SAT 92–98
[2021-07-11] MEDS: Ketorolac 15 MG/ML Vial IV ×5 (00:39→23:08)
[2021-07-11] MEDS: 0.9% Normal Saline 1,000 ML 125 ML IV (04:59)
[2021-07-11 05:26] LABS: Absolute Lymphocyte Count 0.62 X10^3/uL (0.83-4.51); Absolute Neutrophil Count 11.2 X10^3/uL (2.0-7.7); Basophil# 0.03 X10^3/uL; Basophil% 0.2 % (0-1); Eosinophils% 0.7 % (0-5); Hematocrit 29.1 % (40-54); Hemoglobin 10.4 g/dL (13.0-16.5); Lymphocyte # 0.62 X10^3/ul (0.83-4.51); Lymphocyte % 4.6 % (19-41); Mean Corp Hgb Conc 35.7 g/dL (32-36); Mean Corpuscular Hgb 33.9 pg (27.0-32.0); Mean Corpuscular Volume 94.8 fL (80-94); Mean Platelet Vol. 9.6 fl (6.2-12.0); Monocyte% 9.7 % (0-10); NRBC Flagged by Analyzer 0 % (0-5); Neutrophil # 11.17 X10^3/uL (2.7-7.7); Neutrophil % 83.9 % (47-70); Platelet Count 295 K/mm3 (150-450); RBC Distribution Width CV 11.9 % (11.6-14.6); RBC Distribution Width SD 40.8 fl (35.1-43.9); Red Blood Count 3.07 M/mm3 (4.6-6.2); White Blood Count 13.3 K/mm3 (4.4-11.0)
[2021-07-11 05:51] LABS: ALB/GLOB Ratio 0.5 RATIO (0.9-2.4); AST(SGOT) 62 U/L (15-37); Alanine Aminotransfer ALT/SGPT 88 U/L (16-61); Alkaline Phosphatase 63 U/L (45-117); Anion Gap 8 (5-15); BUN 24 mg/dL (7-18); BUN/Creat Ratio 29.1 RATIO (10-20); Calcium,Total 7.5 mg/dL (8.5-10.1); Chloride 101 mmol/L (98-107); Creatinine, Serum 0.83 mg/dL (0.70-1.30); EST Glomerular Filtration Rate 95 mL/min (>60); Est Glom Filt Rate - Afr Amer 115 mL/min (>60); Estimated Creatinine Clearance 73.29 ml/min; Globulin 3.7 g/dL (2.2-4.2); Glucose 104 mg/dL (74-106); Potassium 3.4 mmol/L (3.5-5.1); Protein, Total 5.7 g/dL (6.4-8.2); Sodium Level 131 mmol/L (136-145)
--- NOTE | 2021-07-11 07:50 | PN.SURG_ITS ---
Subjective Subjective Patient tolerating clears still having some flatus denies any burping has been ambulating. Patient does still state his abdomen is distended, white blood count down to 13 from 17 on IV Zosyn Objective Data Objective Data Vital Signs: Vital Signs Temp Pulse Resp BP Pulse Ox 98.5 F 102 H 29 H 130/62 H 98 07/11/21 04:00 07/11/21 07:00 07/11/21 07:00 07/11/21 07:00 07/11/21 07:00 Oxygen Flow Rate (L/min) 3 Oxygen Delivery Method Nasal Cannula Weight: 213 lb 10.047 oz Body Mass Index (BMI) 29.5 Intake & Output: Intake and Output for Last 24 Hours 07/09/21 07/10/21 07/11/21 23:59 23:59 23:59 Intake Total 2282.24 / 2297.24 4413.58 / 4925.66 1480.08 / 1480.08 Output Total 850 / 1050 350 / 350 Balance 2282.24 / 2297.24 3563.58 / 3875.66 1130.08 / 1130.08 Lab / Micro Data Result Diagrams: 07/11/21 05:00 07/11/21 05:00 Labs: Laboratory Results - last 24 hr 07/11/21 05:00: WBC 13.3 H, RBC 3.07 L, Hgb 10.4 L, Hct 29.1 L, MCV 94.8 H, MCH 33.9 H, MCHC 35.7, RDW Std Deviation 40.8, RDW Coeff of Angy 11.9, Plt Count 295, MPV 9.6, Immature Gran % (Auto) 0.900, Neut % (Auto) 83.9 H, Lymph % (Auto) 4.6 L, [place] % (Auto) 9.7, Eos % (Auto) 0.7, Baso % (Auto) 0.2, Absolute Neuts (auto) 11.2 H, Absolute Lymphs (auto) 0.62 L, Nucleated RBC % 0 07/11/21 05:00: Sodium 131 L, Potassium 3.4 L, Chloride 101, Carbon Dioxide 22.0, Anion Gap 8, BUN 24 H, Creatinine 0.83, Estim Creat Clear Calc 73.29, Est GFR (MDRD) Af Amer 115, Est GFR (MDRD) Non-Af 95, BUN/Creatinine Ratio 29.1 H, Glucose 104, Calcium 7.5 L, Total Bilirubin 0.50, AST 62 H, ALT 88 H, Alkaline Phosphatase 63, Total Protein 5.7 L, Albumin 2.0 L, Globulin 3.7, Albumin/[place] bulin Ratio 0.5 L Physical Exam Const alert, oriented x3 and no apparent distress General Appearance: cooperative and comfortable Resp normal respiratory effort Cardio regular rate GI GI Narrative: Abdomen: Soft, mod distended, mild tender near incision's dressed clean dry and intact, no peritoneal signs Psych mental status grossly normal Assessment & Plan Assessment/Plan (1) S/P laparoscopic cholecystectomy: (2) Acute cholecystitis: (3) Ileus due to infection: (4) Paroxysmal atrial fibrillation with RVR: PLAN: We will plan advance patient to full liquid diet. Await increased bowel function/decreased extension before further advancement. Leukocytosis 13 from 17 we will keep on IV Zosyn likely stop tomorrow. Encourage continued ambulation. Cardizem IV per hospitalist?appreciate assistance Hypokalemia?replace Rebecca Hardy M.D. Pager: [phone] [facility] [address] [place] [address], [facility], [address] [place] [address] Office: [phone]
[2021-07-11] MEDS: Spironolactone 25 MG Tablet PO (09:23)
[2021-07-11] MEDS: Famotidine 20 MG Tablet PO (09:24)
[2021-07-11] MEDS: Multivitamins,Ther W-Minerals Tablet 1 TABLET PO (09:24)
[2021-07-11] MEDS: Losartan Potassium 100 MG Tablet PO (09:24)
[2021-07-11] MEDS: Ascorbic Acid 500 MG Tablet PO (09:24)
[2021-07-11] MEDS: Aspirin E.C. 81 MG Tablet PO (09:25)
[2021-07-11] MEDS: amLODIPine 5 MG Tablet PO (09:25)
[2021-07-11] MEDS: Metoprolol(XL)Succ 100 MG Tablet PO (09:25)
[2021-07-11] MEDS: Furosemide 20 MG Tablet PO (09:26)
[2021-07-11] MEDS: Cholecalciferol (VIT D3) 25 MCG TABLET (1,000 UNITS) PO (09:26)
[2021-07-11] MEDS: Fenofibrate 145 MG Tablet PO (09:27)
[2021-07-11 09:52] LABS: MG Sendout 1.8 mg/dL (1.6-2.3)
[2021-07-11] MEDS: Potassium Chloride 10mEq/100mL 10 MEQ/100 ML IV.SOLN. 100 MEQ IV BOLUS ×4 (10:28→14:25)
[2021-07-11] MEDS: 0.9% Saline Lock 10 ML Syringe IV (11:44)
--- NOTE | 2021-07-11 12:23 | PCM.PN.HOSP ---
Subjective Subjective Patient states he is having some flatus. No significant issues at this time. Heart rates have been controlled however he remains in flutter/fib. He is unclear whether he was ever on any oral anticoagulation for his atrial fibrillation and it appears from reviewing cardiology notes previously that if he returned in A. fib they would consider starting anticoagulation at that time. I did explain to the patient why would be beneficial for stroke prevention but we will need to wait until he is able to take oral medications on a consistent basis and it is okay with general surgery given his recent operation. He is denying any chest pain or shortness of breath at this time. Objective Data Objective Data Vital Signs: Vital Signs Temp Pulse Resp BP Pulse Ox 98.9 F 114 H 32 H 158/70 H 93 07/11/21 09:15 07/11/21 11:00 07/11/21 10:16 07/11/21 10:16 07/11/21 10:16 Oxygen Flow Rate (L/min) 3 Oxygen Delivery Method Room Air Weight: 96.9 kg Body Mass Index (BMI) 29.5 Intake & Output: Intake and Output for Last 24 Hours 07/09/21 07/10/21 07/11/21 23:59 23:59 23:59 Intake Total 2282.24 / 2297.24 4413.58 / 4925.66 2371.33 / 2371.33 Output Total 850 / 1050 550 / 550 Balance 2282.24 / 2297.24 3563.58 / 3875.66 1821.33 / 1821.33 Lab / Micro Data Result Diagrams: 07/11/21 05:00 07/11/21 05:00 Labs: Laboratory Results - last 24 hr 07/09/21 07:40: Magnesium 1.8 07/11/21 05:00: WBC 13.3 H, RBC 3.07 L, Hgb 10.4 L, Hct 29.1 L, MCV 94.8 H, MCH 33.9 H, MCHC 35.7, RDW Std Deviation 40.8, RDW Coeff of Angy 11.9, Plt Count 295, MPV 9.6, Immature Gran % (Auto) 0.900, Neut % (Auto) 83.9 H, Lymph % (Auto) 4.6 L, [place] % (Auto) 9.7, Eos % (Auto) 0.7, Baso % (Auto) 0.2, Absolute Neuts (auto) 11.2 H, Absolute Lymphs (auto) 0.62 L, Nucleated RBC % 0 07/11/21 05:00: Sodium 131 L, Potassium 3.4 L, Chloride 101, Carbon Dioxide 22.0, Anion Gap 8, BUN 24 H, Creatinine 0.83, Estim Creat Clear Calc 73.29, Est GFR (MDRD) Af Amer 115, Est GFR (MDRD) Non-Af 95, BUN/Creatinine Ratio 29.1 H, Glucose 104, Calcium 7.5 L, Total Bilirubin 0.50, AST 62 H, ALT 88 H, Alkaline Phosphatase 63, Total Protein 5.7 L, Albumin 2.0 L, Globulin 3.7, Albumin/Globulin Ratio 0.5 L Physical Exam Const alert, oriented x3 and no apparent distress Constitutional Narrative: Older white male who appears younger than stated age, sitting up in bed, significant other is at bedside, nursing is at the bedside, patient appears comfortable and nontoxic Exam Limitations: no limitations Nutritional Appearance: obese HEENT head/scalp atraumatic and moist oral mucous membranes HEENT Narrative: Mallampati is 2-3, no thrush, dentition is fair Head and Scalp: normocephalic Eyes PERRL, EOMs intact bilaterally and conjunctivae normal Eyes Narrative: No scleral icterus Neck no lymphadenopathy, supple and no JVD Neck Narrative: Trachea is midline without thyroid enlargement Resp normal respiratory effort, no retractions, no use of accessory muscles and clear to auscultation bilaterally Auscultation: Negative for crackles, rales, rhonchi or wheezes Cardio S1 normal heart sound, S2 normal heart sound, no murmurs, no rub, no gallops, no clicks and no JVD Cardio Narrative: Irregular regular rhythm however rate is currently controlled GI GI Narrative: Abdomen is distended, bowel sounds are present but slightly hypoactive, mild tenderness, and incisions are clean and dry without any drainage or signs of infection Extremity Extremity Narrative: Trace bilateral lower extremity edema, no clubbing or cyanosis Peripheral Pulses: Yes pulses 2+ throughout Skin no rashes or lesions noted, no wounds, skin turgor normal, no jaundice, no petechiae and no mottling Skin Narrative: Abdominal incisions clean dry and intact as noted above Neuro oriented x3, CN's II-XII intact bilaterally, moves all extremities and no focal motor deficits Sensorium / Orientation: awake and alert Speech: speech normal Psych affect normal Psych Narrative: Very pleasant Assessment & Plan Assessment/Plan (1) Acute cholecystitis: (2) S/P laparoscopic cholecystectomy: (3) Paroxysmal atrial fibrillation with RVR: (4) Hyponatremia: (5) Hypokalemia: PLAN: Acute cholecystitis with cholelithiasis -Patient was taken to the OR on 07/09/2021 where the patient was found to have acute gangrenous cholecystitis -She has developed a postoperative ileus -Clear liquid diet was started -She is having some flatus but no significant bowel movement yet at this time -Continue I-S -Continue IV fluids but decrease rate from 125 an hour to 75 cc/h -Patient currently has no NG in place -General surgery is primary Postoperative ileus -Improving slowly -Continue clear liquid diet -Advance diet per general surgery -Waiting bowel movement Paroxysmal atrial fibrillation with RVR -Rates are currently controlled and it appears he is in a flutter/fib -Has not been anticoagulated but per notes from cardiology office recurrence of atrial fibrillation/flutter would result in probable anticoagulation -I did discuss this with the patient today and will start oral anticoagulation when okay with general surgery -Patient is on Cardizem drip currently -Patient is on metoprolol 50 mg daily which is 50% of his home dose -Increase to 100 mg daily and wean Cardizem as able -Continue to monitor on telemetry Leukocytosis -Related to gangrenous cholecystitis -Continue antibiotics with Zosyn -White count is improving Acute anemia -Related to acute hospitalization -No signs of acute bleeding -Continue to monitor Hyponatremia -Decrease rate of IV fluids -Repeat in a.m. Hypokalemia -40 mEq of IV potassium replacement given -Repeat BMP in a.m. History of seizure disorder -Patient follows with Dr. Guajardo as an outpatient and in the process of down titration of Vimpat after the initiation of Lamictal -Continue Vimpat at this time given ileus -Current wean plan is to continue Vimpat 100 mg p.o. twice daily and start Lamictal extended release 25 mg daily for 1 week -I will need to clarify but I suspect this is discontinuation of the Vimpat CAD -History of stent to the mid RCA in 2012 -Stress test done in August 2017 that was negative for inducible ischemia -Continue baseline medications as able CKD stage II -Patient has chronic proteinuria -Follows with Dr. Carter -Patient is on losartan at baseline Hypertension -Continue home oral medications as able Hyperlipidemia -Continue home simvastatin as able DVT prophylaxis -Start Lovenox subcu 40 mg daily and start Eliquis for atrial fibrillation when okay with general surgery -SCDs CODE STATUS -Full code Charges/Coding Visit Charges Inpatient E&M: 27188 Subs Hosp L3
[2021-07-11] MEDS: lamoTRIgine 25 MG Tablet PO (12:59)
[2021-07-11] MEDS: 0.9% Normal Saline 1,000 ML 75 ML IV (15:44)
[2021-07-11] MEDS: Enoxaparin 40 MG/0.4 ML Syringe SC (15:44)
[2021-07-11] MEDS: Tamsulosin HCl 0.4 MG Capsule PO (17:11)
[2021-07-11] MEDS: Atorvastatin Calcium 10 MG Tablet PO (21:09)
[2021-07-11] MEDS: Albuterol 2.5 MG/3 ML VIAL.NEB. INHALATION (21:18)
[2021-07-12] VITALS (13 sets, daily range): BP systolic 122–146; BP diastolic 69–90; PULSE 80–122; RESP 18–22; TEMP 36.4–37.2; O2SAT 93–97
[2021-07-12] MEDS: dilTIAZem 25 MG/5 ML Vial 10 MG IV BOLUS (02:29)
[2021-07-12] MEDS: 0.9% Normal Saline 1,000 ML 75 ML IV (02:51)
--- NOTE | 2021-07-12 06:23 | RAD_ITS ---
STUDY: X-RAY CHEST REASON FOR EXAM: Male, 80 years old. Dyspnea TECHNIQUE: Single AP portable view of the chest. COMPARISON: November 14, 2014 chest x-ray, CT scan abdomen, lung bases July 09, 2021 FINDINGS: Since prior study there is underexpansion of the lungs. There is blunting of the costophrenic angles. There is a hazy appearance of the lungs. There is increased interstitial markings There is mild cardiac enlargement. Normal mediastinum and hoda. Normal visualized pulmonary arteries. There is atherosclerotic calcification of the aortic arch with tortuosity. Normal visualized thoracic spine. Normal visualized ribs, clavicles, and shoulders. There is no demonstrated abnormality of the visualized soft tissue structures of the upper abdomen. RAD/Chest 1 View (Portable) IMPRESSION: Findings are suspicious for small bilateral pleural effusions lower lobe atelectasis. Cannot entirely exclude superimposed pneumonia. Mild cardiomegaly. Electronically Signed: Claudia Lee MD at 8:21 EST ,
[2021-07-12 06:51] LABS: Absolute Lymphocyte Count 0.53 X10^3/uL (0.83-4.51); Absolute Neutrophil Count 11.6 X10^3/uL (2.0-7.7); Basophil# 0.04 X10^3/uL; Basophil% 0.3 % (0-1); Eosinophil# 0.07 X10^3/uL; Eosinophils% 0.5 % (0-5); Hemoglobin 11.7 g/dL (13.0-16.5); Lymphocyte # 0.53 X10^3/ul (0.83-4.51); Lymphocyte % 3.9 % (19-41); Mean Corp Hgb Conc 35.5 g/dL (32-36); Mean Corpuscular Hgb 33.8 pg (27.0-32.0); Mean Corpuscular Volume 95.4 fL (80-94); Mean Platelet Vol. 9.4 fl (6.2-12.0); Monocyte# 1.27 X10^3/uL; Monocyte% 9.3 % (0-10); NRBC Flagged by Analyzer 0 % (0-5); Neutrophil % 84.7 % (47-70); POSITIVE DIFFERENTIAL YES; Platelet Count 397 K/mm3 (150-450); RBC Distribution Width CV 11.8 % (11.6-14.6); Red Blood Count 3.46 M/mm3 (4.6-6.2); White Blood Count 13.7 K/mm3 (4.4-11.0)
[2021-07-12 07:02] LABS: Differential Indicated SCAN CRITERIA MET
[2021-07-12 07:13] LABS: ALB/GLOB Ratio 0.6 RATIO (0.9-2.4); AST(SGOT) 74 U/L (15-37); Alanine Aminotransfer ALT/SGPT 119 U/L (16-61); Albumin, Serum 2.3 g/dL (3.2-5.0); Alkaline Phosphatase 69 U/L (45-117); Anion Gap 7 (5-15); BUN 17 mg/dL (7-18); BUN/Creat Ratio 23.7 RATIO (10-20); Chloride 100 mmol/L (98-107); Creatinine, Serum 0.72 mg/dL (0.70-1.30); EST Glomerular Filtration Rate 112 mL/min (>60); Est Glom Filt Rate - Afr Amer 136 mL/min (>60); Estimated Creatinine Clearance 60.83 ml/min; Glucose 110 mg/dL (74-106); Potassium 4.1 mmol/L (3.5-5.1); Protein, Total 6.3 g/dL (6.4-8.2); Sodium Level 130 mmol/L (136-145)
[2021-07-12 07:45] LABS: Platelet Estimate ADEQUATE (ADEQ); Red Cell Morphology NORM C+C NORMAL (NORM C&C)
--- NOTE | 2021-07-12 08:21 | PN.SURG_ITS ---
Subjective Subjective Patient states he is passing gas and had a couple bowel movements. Patient tolerated full's. Patient still is white blood count of 13.7 from 13.3 Objective Data Objective Data Vital Signs: Vital Signs Temp Pulse Resp BP Pulse Ox 98.4 F 109 H 18 145/90 H 94 07/12/21 03:30 07/12/21 07:00 07/12/21 03:30 07/12/21 03:30 07/12/21 03:30 Oxygen Flow Rate (L/min) 3 Oxygen Delivery Method Room Air Weight: 225 lb 1.471 oz Body Mass Index (BMI) 29.5 Intake & Output: Intake and Output for Last 24 Hours 07/10/21 07/11/21 07/12/21 23:59 23:59 23:59 Intake Total 4413.58 / 4925.66 3601.75 / 3601.75 1178.75 / 1178.75 Output Total 850 / 1050 950 / 1150 340 / 340 Balance 3563.58 / 3875.66 2651.75 / 2451.75 838.75 / 838.75 Lab / Micro Data Result Diagrams: 07/12/21 06:34 07/12/21 06:34 Labs: Laboratory Results - last 24 hr 07/09/21 07:40: Magnesium 1.8 07/12/21 06:34: WBC 13.7 H, RBC 3.46 L, Hgb 11.7 L, Hct 33.0 L, MCV 95.4 H, MCH 33.8 H, MCHC 35.5, RDW Std Deviation 41.0, RDW Coeff of Angy 11.8, Plt Count 397, MPV 9.4, Immature Gran % (Auto) 1.300 H, Neut % (Auto) 84.7 H, Lymph % (Auto) 3.9 L, [place] % (Auto) 9.3, Eos % (Auto) 0.5, Baso % (Auto) 0.3, Absolute Neuts (auto) 11.6 H, Absolute Lymphs (auto) 0.53 L, Nucleated RBC % 0, Platelet Estimate ADEQUATE, RBC Morphology NORM C+C 07/12/21 06:34: Sodium 130 L, Potassium 4.1, Chloride 100, Carbon Dioxide 23.0, Anion Gap 7, BUN 17, Creatinine 0.72, Estim Creat Clear Calc 60.83, Est GFR (MDRD) Af Amer 136, Est GFR (MDRD) Non-Af 112, BUN/Creatinine Ratio 23.7 H, Glucose 110 H, Calcium 8.0 L, Total Bilirubin 0.70, AST 74 H, ALT 119 H, Alkaline Phosphatase 69, Total Protein 6.3 L, Albumin 2.3 L, Globulin 4.0, Albumin/Globulin Ratio 0.6 L Physical Exam Const alert, oriented x3 and no apparent distress General Appearance: cooperative and comfortable Resp normal respiratory effort Cardio regular rate GI GI Narrative: Abdomen: Soft, mild distended, mild tender near incision's dressed clean dry and intact, no peritoneal signs Psych mental status grossly normal Assessment & Plan Assessment/Plan (1) S/P laparoscopic cholecystectomy: (2) Acute cholecystitis: (3) Ileus due to infection: (4) Paroxysmal atrial fibrillation with RVR: PLAN: We will plan advance patient to cardiac diet. Leukocytosis 13.7 from 13.3 we will keep on IV Zosyn likely stop tomorrow. Encourage continued ambulation. Medical management per hospitalist Rebecca Hardy M.D. Pager: [phone] [facility] [address] [place] [address], [facility], [address] [place] [address] Office: [phone]
[2021-07-12 08:28] LABS: MG Sendout 1.9 mg/dL (1.6-2.3)
[2021-07-12] MEDS: Spironolactone 25 MG Tablet PO (09:47)
[2021-07-12] MEDS: Furosemide 20 MG Tablet PO (09:47)
[2021-07-12] MEDS: Enoxaparin 40 MG/0.4 ML Syringe SC (09:47)
[2021-07-12] MEDS: lamoTRIgine 25 MG Tablet PO (09:48)
[2021-07-12] MEDS: Metoprolol(XL)Succ 100 MG Tablet PO (09:48)
[2021-07-12] MEDS: Fenofibrate 145 MG Tablet PO (09:48)
[2021-07-12] MEDS: Aspirin E.C. 81 MG Tablet PO (09:48)
[2021-07-12] MEDS: Cholecalciferol (VIT D3) 25 MCG TABLET (1,000 UNITS) PO (09:48)
[2021-07-12] MEDS: Famotidine 20 MG Tablet PO (09:49)
[2021-07-12] MEDS: Losartan Potassium 100 MG Tablet PO (09:49)
[2021-07-12] MEDS: amLODIPine 5 MG Tablet PO (09:49)
[2021-07-12] MEDS: Ascorbic Acid 500 MG Tablet PO (09:49)
[2021-07-12] MEDS: Multivitamins,Ther W-Minerals Tablet 1 TABLET PO (09:49)
[2021-07-12] MEDS: Furosemide 40 MG/4 ML Vial IV ×2 (10:38→16:20)
[2021-07-12] MEDS: 0.9% Saline Lock 10 ML Syringe IV ×3 (10:40→20:55)
[2021-07-12] MEDS: Calcium Carbonate 500 MG Tablet PO ×2 (13:25→20:56)
--- NOTE | 2021-07-12 13:26 | PN.HOSP_ITS ---
Subjective Subjective Patient with flatus and bowel movement last evening. Diet has been upgraded to cardiac carb control with no carbonation. He does admit that he is a little bit more short of breath as he appears more winded with conversation today. He has been on fairly aggressive hydration was discontinued overnight. Objective Data Objective Data Vital Signs: Vital Signs Temp Pulse Resp BP Pulse Ox 97.7 F L 119 H 22 H 141/76 H 96 07/12/21 09:30 07/12/21 11:00 07/12/21 09:30 07/12/21 09:48 07/12/21 09:30 Oxygen Flow Rate (L/min) 3 Oxygen Delivery Method Room Air Weight: 102.1 kg Body Mass Index (BMI) 29.5 Intake & Output: Intake and Output for Last 24 Hours 07/10/21 07/11/21 07/12/21 23:59 23:59 23:59 Intake Total 4413.58 / 4925.66 3601.75 / 3601.75 1528.75 / 1528.75 Output Total 850 / 1050 950 / 1150 1115 / 1115 Balance 3563.58 / 3875.66 2651.75 / 2451.75 413.75 / 413.75 Lab / Micro Data Result Diagrams: 07/12/21 06:34 07/12/21 06:34 Labs: Laboratory Results - last 24 hr 07/11/21 05:00: Magnesium 1.9 07/12/21 06:34: WBC 13.7 H, RBC 3.46 L, Hgb 11.7 L, Hct 33.0 L, MCV 95.4 H, MCH 33.8 H, MCHC 35.5, RDW Std Deviation 41.0, RDW Coeff of Angy 11.8, Plt Count 397, MPV 9.4, Immature Gran % (Auto) 1.300 H, Neut % (Auto) 84.7 H, Lymph % (Auto) 3.9 L, [place] % (Auto) 9.3, Eos % (Auto) 0.5, Baso % (Auto) 0.3, Absolute Neuts (auto) 11.6 H, Absolute Lymphs (auto) 0.53 L, Nucleated RBC % 0, Platelet Estimate ADEQUATE, RBC Morphology NORM C+C 07/12/21 06:34: Sodium 130 L, Potassium 4.1, Chloride 100, Carbon Dioxide 23.0, Anion Gap 7, BUN 17, Creatinine 0.72, Estim Creat Clear Calc 60.83, Est GFR (MDRD) Af Amer 136, Est GFR (MDRD) Non-Af 112, BUN/Creatinine Ratio 23.7 H, Glucose 110 H, Calcium 8.0 L, Total Bilirubin 0.70, AST 74 H, ALT 119 H, Alkaline Phosphatase 69, Total Protein 6.3 L, Albumin 2.3 L, Globulin 4.0, Albumin/Globulin Ratio 0.6 L Radiography Diagnostic Testing: Radiology Impression Chest X-Ray 07/12/21 06:23 IMPRESSION: Findings are suspicious for small bilateral pleural effusions lower lobe atelectasis. Cannot entirely exclude superimposed pneumonia. Mild cardiomegaly. Electronically Signed: Claudia Lee MD at 8:21 EST Reading Location ID and State: [facility], 1928–1983 / [place] Tel , Service support , Physical Exam Const alert, oriented x3 and no apparent distress Constitutional Narrative: Older white male who appears younger than stated age, sitting up in bed, significant other is at bedside, patient appears slightly dyspneic with conversation and winded today but nontoxic Exam Limitations: no limitations Nutritional Appearance: obese HEENT head/scalp atraumatic and moist oral mucous membranes HEENT Narrative: Mallampati is 3, no thrush Head and Scalp: normocephalic Eyes PERRL, EOMs intact bilaterally and conjunctivae normal Eyes Narrative: No scleral icterus Neck no lymphadenopathy and supple Neck Narrative: Trachea is midline without thyroid enlargement, JVD noted Resp no retractions, no use of accessory muscles and clear to auscultation bilaterally Resp Narrative: Tachypneic but remains on room air Auscultation: Negative for crackles, rales, rhonchi or wheezes Cardio S1 normal heart sound, S2 normal heart sound, no murmurs, no rub, no gallops, no clicks and no JVD Cardio Narrative: Tachycardia with irregular regular rhythm GI GI Narrative: Abdomen is mildly distended, bowel sounds are now normal active, mild tenderness, and incisions are clean and dry without any drainage or signs o f infection Extremity Extremity Narrative: 1+ bilateral lower extremity edema, no clubbing or cyanosis Peripheral Pulses: Yes pulses 2+ throughout Skin no rashes or lesions noted, no wounds, skin turgor normal, no jaundice, no petechiae and no mottling Skin Narrative: Abdominal incisions clean dry and intact as noted above Neuro oriented x3, CN's II-XII intact bilaterally, moves all extremities, no focal motor deficits and no sensory deficits noted Sensorium / Orientation: awake and alert Speech: speech normal Psych affect normal Psych Narrative: Very pleasant Assessment & Plan Assessment/Plan (1) Acute cholecystitis: (2) S/P laparoscopic cholecystectomy: (3) Paroxysmal atrial fibrillation with RVR: (4) Hyponatremia: (5) Hypokalemia: PLAN: Acute cholecystitis with cholelithiasis -Patient was taken to the OR on 07/09/2021 where the patient was found to have acute gangrenous cholecystitis -Patient with flatus and bowel movement overnight -Diet was advanced to cardiac/carb control with no carbonation by general surgery -IV fluids discontinued -Patient currently has no NG in place -General surgery is primary Postoperative ileus -Resolving Paroxysmal atrial fibrillation with RVR -Patient is still tachycardic -Has not been anticoagulated but per notes from cardiology office recurrence of atrial fibrillation/flutter would result in probable anticoagulation -Home metoprolol dose reinitiated yesterday and continued today -Off diltiazem -Echocardiogram is overall unimpressive -Okay to start oral anticoagulation per discussion with general surgery and therefore Eliquis 5 mg p.o. twice daily started today 07/12/2021 -Persistent tachycardia will consult cardiology -Continue to monitor on telemetry Leukocytosis -Stable -Continue with Zosyn per general surgery's recommendations Acute anemia -Related to acute hospitalization -No signs of acute bleeding -Continue to monitor Hyponatremia -Suspect hypervolemic hyponatremia -Patient now with some shortness of breath and appears volume overloaded -Lasix 40 mg IV push twice daily on top of his home Lasix dose of 20 mg daily -Patient is over 9 L positive for his hospitalization -Recheck in a.m. Hypokalemia - resolved History of seizure disorder -Patient follows with Dr. Borrero as an outpatient and in the process of down titration of Vimpat after the initiation of Lamictal -We will convert IV Vimpat to oral--> patient will continue on Vimpat 100 mg p.o. twice daily on discharge and we are weaning Lamictal over 7 days CAD -History of stent to the mid RCA in 2012 -Stress test done in August 2017 that was negative for inducible ischemia -Continue baseline medications as able CKD stage II -Patient has chronic proteinuria -Follows with Dr. Carter -Patient is on losartan at baseline Hypertension -Continue home oral medications as able Hyperlipidemia -Continue home simvastatin as able DVT prophylaxis -Continue SCDs -Discontinue Lovenox -Start Eliquis 5 mg p.o. twice daily CODE STATUS -Full code Charges/Coding Visit Charges Inpatient E&M: 90256 Subs Hosp L3
--- NOTE | 2021-07-12 15:20 | PCM.CONS.C ---
Assessment & Plan Assessment/Plan (1) S/P laparoscopic cholecystectomy: (2) Acute cholecystitis: (3) Atherosclerotic heart disease of [place] coronary artery without angina pectoris: QUALIFIERS: [place] vs. transplanted heart: [place] heart Qualified Code(s): I25.10 - Atherosclerotic heart disease of [place] coronary artery without angina pectoris (4) History of coronary artery stent placement: (5) PAF (paroxysmal atrial fibrillation): PLAN: 80-year-old patient with acute cholecystitis S/P laparoscopic cholecystectomy. Cardiology consult because of underlying atrial fibrillation with rapid ventricular rate Patient with known coronary artery disease with PCI and stent of RCA 2012 Has been seen and followed by cardiology team here at [facility] And recent echocardiogram showed LV function is preserved ejection fraction of around 70, low ventricle hypertrophy, mild to moderate MR, mild TR Cardiac care plan recommendations; 1. I reviewed his current medication with the nursing staff We will continue on verapamil LA and beta-roseanne metoprolol tartrate for rate control 2. Patient is on anticoagulation with Eliquis 3. His renal function is normal and if needed we may add low-dose digoxin for better control of the rate 4. We will continue to monitor and follow-up clinically HPI Consult Data Date of Consult: 07/12/21 HPI Narrative Reason for Consultation: Postop lap jessee/atrial flutter/A. fib with RVR HPI Narrative: DEX BAEZ, is a 80 M who presents [facility] Medical History (Updated 07/11/21 @ 12:[address] Marissa Leal, DO) Atherosclerotic heart disease of [place] coronary artery without angina pectoris BPH (benign prostatic hyperplasia) Essential (primary) hypertension ETOH abuse Hyperlipidemia Nonrheumatic mitral valve regurgitation Obesity (BMI 30.0-34.9) GAVINO (obstructive sleep apnea) Overweight (BMI 25.0-29.9) PAF (paroxysmal atrial fibrillation) Proteinuria Seizures Home Medications fenofibrate 160 mg PO DAILY 05/07/13 [History Last Taken 05/07/13] simvastatin 20 mg PO QHS 05/07/13 [History Last Taken 05/07/13] ascorbic acid (vitamin C) 500 mg PO DAILY@0800 11/14/14 [History Last Taken Unknown] multivitamin with folic acid 1 tab PO DAILY 11/14/14 [History Last Taken Unknown] selenium 200 mcg PO DAILY 11/14/14 [History Last Taken Unknown] vitamin B complex 1 ea PO DAILY 11/14/14 [History Last Taken Unknown] vitamin E (dl, acetate) 400 units PO DAILY 11/14/14 [History Last Taken Unknown] amlodipine 10 mg tablet 10 mg PO QDAY 09/12/17 [History Last Taken 11/14/19 05:30] cholecalciferol (vitamin D3) 25 mcg (1,000 unit) tablet 1,000 unit PO QDAY 09/12/17 [History Last Taken Unknown] omega-3 fatty acids 1,000 mg capsule See Rx Instructions .ROUTE .COMPLEX cap 09/15/17 [History Last Taken 11/08/19] losartan 100 mg tablet 100 mg PO DAILY 09/26/18 [History Last Taken Unknown] L.acidoph, paracasei,B. lactis 1 ea PO DAILY 11/07/19 [History Last Taken Unknown] aspirin 81 mg tablet,delayed release 81 mg PO DAILY 05/27/20 [History Last Taken Unknown] furosemide 20 mg tablet 20 mg PO DAILY tab 05/27/20 [History Last Taken Unknown] metoprolol succinate 100 mg tablet,extended release 24 hr 100 mg PO QDAY tab 12/09/20 [History Last Taken Unknown] lacosamide 100 mg tablet See Rx Instructions .ROUTE .COMPLEX #0 tab 06/23/21 [Rx Last Taken Unknown] spironolactone 25 mg tablet 25 mg PO DAILY 06/23/21 [History Last Taken Unknown] lamotrigine 25 mg PO DAILY 07/09/21 [History Last Taken Unknown] zonisamide 100 mg capsule 100 mg PO .COMPLEX #42 cap 07/09/21 [Rx Last Taken Unknown] Allergy/AdvReac Type Severity Reaction Status Date / Time hydrocodone bitartrate Allergy Mild Hives Verified 07/09/21 06:26 [From Vicodin] chlorhexidine AdvReac Unknown Verified 07/09/21 06:26 Family History Mother CVA (cerebral vascular accident) Father CAD (coronary artery disease) Hx CABG Myocardial infarction Brother Myocardial infarction CAD (coronary artery disease) Hypertension Sister CAD (coronary artery disease) Hx CABG Hypertension Surgical History (Updated 07/11/21 @ 08:[address] 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 fib Cardiac exam S1-S2 is irregular, no systolic or diastolic murmur No pericardial rub Chest exam clear to auscultation bilateral. Risk Stratification Risk Stratification Applicable: Yes Age >/= 65: Yes >/= 3 CAD Risk Factors (HTN, HLD, DM, family hx of CAD, or current smoker): Yes Aspirin Use in the Past 7 Days: Yes Severe Angina (>/= episodes in 24 hours): No EKG ST Changes >/= 0.5mm: No Positive Cardiac Marker: No MIGUEL Risk Stratification Score: 3 MIGUEL % Risk: 13% Risk Objective Data Vital Signs: Vital Signs Temp Pulse Resp BP Pulse Ox 97.7 F L 119 H 22 H 141/76 H 96 07/12/21 09:30 07/12/21 11:00 07/12/21 09:30 07/12/21 09:48 07/12/21 09:30 Oxygen Flow Rate (L/min) 3 Oxygen Delivery Method Room Air Weight: 225 lb 1.471 oz Body Mass Index (BMI) 29.5 Intake & Output: Intake and Output for Last 24 Hours 07/10/21 07/11/21 07/12/21 23:59 23:59 23:59 Intake Total 4413.58 / 4925.66 3601.75 / 3601.75 1528.75 / 1528.75 Output Total 850 / 1050 950 / 1150 1115 / 1115 Balance 3563.58 / 3875.66 2651.75 / 2451.75 413.75 / 413.75 Lab / Micro Data Result Diagrams: 07/12/21 06:34 07/12/21 06:34 Labs: Laboratory Results - last 24 hr 07/11/21 05:00: Magnesium 1.9 07/12/21 06:34: WBC 13.7 H, RBC 3.46 L, Hgb 11.7 L, Hct 33.0 L, MCV 95.4 H, MCH 33.8 H, MCHC 35.5, RDW Std Deviation 41.0, RDW Coeff of Angy 11.8, Plt Count 397, MPV 9.4, Immature Gran % (Auto) 1.300 H, Neut % (Auto) 84.7 H, Lymph % (Auto) 3.9 L, [place] % (Auto) 9.3, Eos % (Auto) 0.5, Baso % (Auto) 0.3, Absolute Neuts (auto) 11.6 H, Absolute Lymphs (auto) 0.53 L, Nucleated RBC % 0, Platelet Estimate ADEQUATE, RBC Morphology NORM C+C 07/12/21 06:34: Sodium 130 L, Potassium 4.1, Chloride 100, Carbon Dioxide 23.0, Anion Gap 7, BUN 17, Creatinine 0.72, Estim Creat Clear Calc 60.83, Est GFR (MDRD) Af Amer 136, Est GFR (MDRD) Non-Af 112, BUN/Creatinine Ratio 23.7 H, Glucose 110 H, Calcium 8.0 L, Total Bilirubin 0.70, AST 74 H, ALT 119 H, Alkaline Phosphatase 69, Total Protein 6.3 L, Albumin 2.3 L, Globulin 4.0, Albumin/Globulin Ratio 0.6 L Cardiology Labs/Tests 07/11/21 05:00: Magnesium 1.9 07/12/21 06:34: WBC 13.7 H, RBC 3.46 L, Hgb 11.7 L, Hct 33.0 L, MCV 95.4 H, MCH 33.8 H, MCHC 35.5, Plt Count 397, MPV 9.4, Immature Gran % (Auto) 1.300 H, Neut % (Auto) 84.7 H, Lymph % (Auto) 3.9 L, [place] % (Auto) 9.3, Eos % (Auto) 0.5, Baso % (Auto) 0.3, Absolute Neuts (auto) 11.6 H, Nucleated RBC % 0 07/12/21 06:34: Sodium 130 L, Potassium 4.1, Chloride 100, Carbon Dioxide 23.0, Anion Gap 7, BUN 17, Creatinine 0.72, Est GFR (MDRD) Af Amer 136, Est GFR (MDRD) Non-Af 112, BUN/Creatinine Ratio 23.7 H, Glucose 110 H, Calcium 8.0 L, Total Bilirubin 0.70 Rhythm: Atrial flutter with variable ventricular rate/A. fib with RVR Radiography Diagnostic Testing: Radiology Impression Chest X-Ray 07/12/21 06:23 IMPRESSION: Findings are suspicious for small bilateral pleural effusions lower lobe atelectasis. Cannot entirely exclude superimposed pneumonia. Mild cardiomegaly. Electronically Signed: Claudia Lee MD at 8:21 EST Reading Location ID and State: [facility] / [place] Tel , Service support ,
[2021-07-12] MEDS: Verapamil SR 240 MG Tablet 120 MG PO (16:17)
[2021-07-12] MEDS: Tamsulosin HCl 0.4 MG Capsule PO (16:18)
[2021-07-12] MEDS: APIXABAN 5 MG TABLET PO (20:55)
[2021-07-12] MEDS: Metoprolol Tartrate 50 MG Tablet PO (20:55)
[2021-07-12] MEDS: Atorvastatin Calcium 10 MG Tablet PO (20:56)
[2021-07-12] MEDS: Lacosamide 50 MG Tablet 100 MG PO (21:05)
[2021-07-13] VITALS (8 sets, daily range): BP systolic 117–145; BP diastolic 65–95; PULSE 77–139; RESP 16–20; TEMP 36.3–36.9; O2SAT 95–96
--- NOTE | 2021-07-13 07:52 | PCM.PN.SRG ---
Subjective Subjective Patient seen and examined during AM rounds. He is found sitting upright in bed. He expresses some fatigue, but is otherwise without significant planes he states it is difficult to find rest in the hospital. He states that his inside abdominal pain has improved, and he only experiences some pain along his abdominal wall. He has had return of bowel function and had a large bowel movement this morning. Objective Data Objective Data Vital Signs: Vital Signs Temp Pulse Resp BP Pulse Ox 98.5 F 77 20 H 118/67 96 07/13/21 03:00 07/13/21 03:00 07/13/21 03:00 07/13/21 03:00 07/13/21 03:00 Oxygen Flow Rate (L/min) 3 Oxygen Delivery Method Room Air Weight: 217 lb 9.54 oz Body Mass Index (BMI) 29.5 Intake & Output: Intake and Output for Last 24 Hours 07/11/21 07/12/21 07/13/21 23:59 23:59 23:59 Intake Total 3601.75 / 3601.75 1938.75 / 1938.75 50 / 50 Output Total 950 / 1150 3290 / 3740 450 / 450 Balance 2651.75 / 2451.75 -1351.25 / -1801.25 -400 / -400 Lab / Micro Data Result Diagrams: 07/13/21 08:04 07/13/21 08:04 Labs: Laboratory Results - last 24 hr 07/11/21 05:00: Magnesium 1.9 Radiography Diagnostic Testing: Radiology Impression Chest X-Ray 07/12/21 06:23 IMPRESSION: Findings are suspicious for small bilateral pleural effusions lower lobe atelectasis. Cannot entirely exclude superimposed pneumonia. Mild cardiomegaly. Electronically Signed: Claudia Lee MD at 8:21 EST , Physical Exam Resp Resp Narrative: Becomes slightly tachypneic with shallow breathing when dressings are discontinued GI GI Narrative: Mildly distended, tender to palpation about incision sites. Incision sites had operative dressings in place that were clean and dry?once removed Steri-Strips remain intact without any periincisional erythema or drainage Assessment & Plan Assessment/Plan (1) Acute cholecystitis: (2) S/P laparoscopic cholecystectomy: (3) Ileus due to infection: (4) Paroxysmal atrial fibrillation with RVR: PLAN: Neuro: As needed acetaminophen, as needed tramadol. On lacosamide and lamotrigine per neurologist Pulm/CV: Supplemental O2 as needed?patient currently on room air. Patient with improved rate control. On verapamil appreciate assistance of both hospitalist and cardiology for A. fib with RVR FEN/GI: Hypokalemia nine-post phosphatemia. Replacing today. Patient with return of bowel function and tolerating a diet. Minimal abdominal pain Heme/ID: Hemoglobin stable. Eliquis anticoagulation started. Leukocytosis increasing without apparent cause on Zosyn?day 5 Endo: No acute issues Proph: Ambulate as able. SCDs Dispo: Continue inpatient stay Luis Rodriguez MD General Surgery Endocrine Surgery Pager: [facility] [address] [place] [address], [address] [place] [id number] Office: [phone] Charges/Coding Visit Charges Inpatient E&M: 10189 [facility] Hosp L2
[2021-07-13 08:11] LABS: Absolute Lymphocyte Count 0.76 X10^3/uL (0.83-4.51); Absolute Neutrophil Count 12.2 X10^3/uL (2.0-7.7); Basophil# 0.07 X10^3/uL; Basophil% 0.5 % (0-1); Eosinophil# 0.16 X10^3/uL; Eosinophils% 1.1 % (0-5); Hematocrit 32.1 % (40-54); Hemoglobin 11.4 g/dL (13.0-16.5); Lymphocyte # 0.76 X10^3/ul (0.83-4.51); Lymphocyte % 5.1 % (19-41); Mean Corp Hgb Conc 35.5 g/dL (32-36); Mean Platelet Vol. 9.3 fl (6.2-12.0); Monocyte# 1.51 X10^3/uL; Monocyte% 10.1 % (0-10); NRBC Flagged by Analyzer 0 % (0-5); Neutrophil # 12.24 X10^3/uL (2.7-7.7); Neutrophil % 81.4 % (47-70); POSITIVE DIFFERENTIAL YES; Platelet Count 455 K/mm3 (150-450); RBC Distribution Width SD 40.8 fl (35.1-43.9); Red Blood Count 3.45 M/mm3 (4.6-6.2)
[2021-07-13] MEDS: APIXABAN 5 MG TABLET PO ×2 (08:24→21:40)
[2021-07-13] MEDS: Ascorbic Acid 500 MG Tablet PO (08:24)
[2021-07-13] MEDS: Metoprolol Tartrate 50 MG Tablet PO ×2 (08:24→21:40)
[2021-07-13] MEDS: lamoTRIgine 25 MG Tablet PO (08:24)
[2021-07-13] MEDS: Multivitamins,Ther W-Minerals Tablet 1 TABLET PO (08:24)
[2021-07-13] MEDS: Spironolactone 25 MG Tablet PO (08:24)
[2021-07-13 08:25] LABS: Differential Indicated SCAN CRITERIA MET
[2021-07-13] MEDS: Aspirin E.C. 81 MG Tablet PO (08:25)
[2021-07-13] MEDS: Verapamil SR 240 MG Tablet 120 MG PO (08:25)
[2021-07-13] MEDS: Furosemide 20 MG Tablet PO (08:25)
[2021-07-13] MEDS: Fenofibrate 145 MG Tablet PO (08:26)
[2021-07-13] MEDS: Losartan Potassium 100 MG Tablet PO (08:26)
[2021-07-13] MEDS: Famotidine 20 MG Tablet PO (08:26)
[2021-07-13 08:32] LABS: Anion Gap 9 (5-15); BUN 15 mg/dL (7-18); BUN/Creat Ratio 22.2 RATIO (10-20); Calcium,Total 8.1 mg/dL (8.5-10.1); Chloride 97 mmol/L (98-107); Creatinine, Serum 0.68 mg/dL (0.70-1.30); EST Glomerular Filtration Rate 120 mL/min (>60); Est Glom Filt Rate - Afr Amer 145 mL/min (>60); Estimated Creatinine Clearance 60.83 ml/min; Glucose 103 mg/dL (74-106); Phosphorus 1.8 mg/dL (2.5-4.9); Potassium 3.4 mmol/L (3.5-5.1); Sodium Level 131 mmol/L (136-145)
[2021-07-13 09:41] LABS: Pathologist Review Reviewed
--- NOTE | 2021-07-13 10:21 | PCM.PN.CARD ---
Subjective Subjective The patient is awake and alert. He denies any ongoing acute cardiovascular symptoms. Objective Data Vital Signs: Vital Signs Temp Pulse Resp BP Pulse Ox 97.8 F 116 H 18 143/76 H 95 07/13/21 09:00 07/13/21 09:00 07/13/21 09:00 07/13/21 09:00 07/13/21 09:00 Oxygen Flow Rate (L/min) 3 Oxygen Delivery Method Room Air Weight: 217 lb 9.54 oz Body Mass Index (BMI) 29.5 Intake & Output: Intake and Output for Last 24 Hours 07/11/21 07/12/21 07/13/21 23:59 23:59 23:59 Intake Total 3601.75 / 3601.75 1938.75 / 1938.75 50 / 50 Output Total 950 / 1150 3290 / 3740 450 / 450 Balance 2651.75 / 2451.75 -1351.25 / -1801.25 -400 / -400 Lab / Micro Data Result Diagrams: 07/13/21 08:04 07/13/21 08:04 Labs: Laboratory Results - last 24 hr 07/10/21 05:28: Diff Path Review Reviewed 07/13/21 08:04: WBC 15.0 H, RBC 3.45 L, Hgb 11.4 L, Hct 32.1 L, MCV 93.0, MCH 33.0 H, MCHC 35.5, RDW Std Deviation 40.8, RDW Coeff of Angy 12.0, Plt Count 455 H, MPV 9.3, Immature Gran % (Auto) 1.800 H, Neut % (Auto) 81.4 H, Lymph % (Auto) 5.1 L, [place] % (Auto) 10.1 H, Eos % (Auto) 1.1, Baso % (Auto) 0.5, Absolute Neuts (auto) 12.2 H, Absolute Lymphs (auto) 0.76 L, Nucleated RBC % 0, Diff Path Review September07/13/21 08:04: Sodium 131 L, Potassium 3.4 L, Chloride 97 L, Carbon Dioxide 25.0, Anion Gap 9, BUN 15, Creatinine 0.68 L, Estim Creat Clear Calc 60.83, Est GFR (MDRD) Af Amer 145, Est GFR (MDRD) Non-Af 120, BUN/Creatinine Ratio 22.2 H, Glucose 103, Calcium 8.1 L, Phosphorus 1.8 L Cardiology Labs/Tests 07/13/21 08:04: WBC 15.0 H, RBC 3.45 L, Hgb 11.4 L, Hct 32.1 L, MCV 93.0, MCH 33.0 H, MCHC 35.5, Plt Count 455 H, MPV 9.3, Immature Gran % (Auto) 1.800 H, Neut % (Auto) 81.4 H, Lymph % (Auto) 5.1 L, [place] % (Auto) 10.1 H, Eos % (Auto) 1.1, Baso % (Auto) 0.5, Absolute Neuts (auto) 12.2 H, Nucleated RBC % 0 07/13/21 08:04: Sodium 131 L, Potassium 3.4 L, Chloride 97 L, Carbon Dioxide 25.0, Anion Gap 9, BUN 15, Creatinine 0.68 L, Est GFR (MDRD) Af Amer 145, Est GFR (MDRD) Non-Af 120, BUN/Creatinine Ratio 22.2 H, Glucose 103, Calcium 8.1 L, Phosphorus 1.8 L Rhythm: Atrial fibrillation Physical Exam Const alert, oriented x3 and no apparent distress Orientation / Consciousness: awake HEENT normocephalic, head/scalp atraumatic and hearing grossly normal bilaterally Eyes PERRL and EOMs intact bilaterally Neck supple and no JVD Resp clear to auscultation bilaterally Cardio Rhythm: abnormal rhythm irregularly irregular Heart Sounds: S1 normal and S2 normal GI normal to inspection, nondistended, normoactive bowel sounds Extremity no pedal edema Skin no rashes or lesions noted Psych mental status grossly normal Assessment & Plan Assessment/Plan (1) Paroxysmal atrial fibrillation with RVR: PLAN: The patient has a history of paroxysmal atrial fibrillation. He has had recurrent atrial fibrillation status post his laparoscopic cholecystectomy. At the moment plan is to continue conservative medical management with rate control therapy and anticoagulant therapy. If the patient does not return to sinus rhythm as he recuperates from his laparoscopic cholecystectomy then he can be considered for future outpatient synchronized biphasic DC cardioversion. (2) Atherosclerotic heart disease of [place] coronary artery without angina pectoris: QUALIFIERS: [place] vs. transplanted heart: [place] heart Qualified Code(s): I25.10 - Atherosclerotic heart disease of [place] coronary artery without angina pectoris PLAN: The patient has a history of underlying CAD. He appears to be stable with no acute symptoms or adverse events. He will continue medical management. (3) History of coronary artery stent placement: PLAN: The patient has been reported as going through PCI in the past. At the moment he is without any acute coronary syndrome related symptoms. He will continue medical therapy. (4) Hyperlipidemia: QUALIFIERS: Hyperlipidemia type: pure hypercholesterolemia Qualified Code(s): E78.00 - Pure hypercholesterolemia, unspecified PLAN: The patient should continue risk factor evaluation care as deemed appropriate. (5) Essential (primary) hypertension: PLAN: The patient's blood pressure can be followed with his medicines adjusted as needed. (6) S/P laparoscopic cholecystectomy: PLAN: The patient will continue evaluation care per internal medicine and general surgery. Addt'l Comments The patient's case has been discussed and reviewed with Dr. Martin and Drf. Leal. This note was generated using a voice recognition system and there may be incorrect words, spelling or punctuation that were not noted when reviewing the office note prior to saving.
[2021-07-13] MEDS: Cholecalciferol (VIT D3) 25 MCG TABLET (1,000 UNITS) PO (10:57)
[2021-07-13] MEDS: Lacosamide 50 MG Tablet 100 MG PO ×2 (10:57→22:28)
[2021-07-13] MEDS: Furosemide 40 MG/4 ML Vial IV ×2 (10:57)
[2021-07-13] MEDS: 0.9% Saline Lock 10 ML Syringe IV (10:58)
[2021-07-13 11:54] LABS: Bacteria 0 SEEN /hpf (None Seen); Mucous, Urine 0 SEEN /hpf (<or=2+); Red Blood Cells-Urine 0 SEEN /hpf (0-5); Squamous Epithelial Cells - UA 0 SEEN /hpf (0-5)
[2021-07-13 12:11] LABS: Color, Urine Yellow (Yellow); Glucose, Dipstick Normal (Normal); Ketone-Dipstick Negative (Negative); Leukocyte Esterase-Dipstick Negative /ul (Negative); Nitrite-Dipstick Negative (Negative); Occult Blood-Urine Negative /ul (Negative); Protein-Dipstick 30 mg/dl (Negative); Urine Bilirubin Dipstick Negative (Negative); Urine Clarity Clear (Clear); Urine Urobilinogen Normal (Normal)
[2021-07-13 12:25] LABS: White Blood Cells 0-5 SEEN /hpf (0-5)
--- NOTE | 2021-07-13 15:09 | PCM.PN.HOSP ---
Subjective Subjective Patient states his breathing is much better. He is tolerating a p.o. diet without any issues. He continues to pass flatus and having bowel movements. He is anxious to go home when he is ready. Objective Data Objective Data Vital Signs: Vital Signs Temp Pulse Resp BP Pulse Ox 97.8 F 116 H 18 143/76 H 95 07/13/21 09:00 07/13/21 09:00 07/13/21 09:00 07/13/21 09:00 07/13/21 09:00 Oxygen Flow Rate (L/min) 3 Oxygen Delivery Method Room Air Weight: 98.7 kg Body Mass Index (BMI) 29.5 Intake & Output: Intake and Output for Last 24 Hours 07/11/21 07/12/21 07/13/21 23:59 23:59 23:59 Intake Total 3601.75 / 3601.75 1938.75 / 1938.75 100 / 100 Output Total 950 / 1150 3290 / 3740 450 / 450 Balance 2651.75 / 2451.75 -1351.25 / -1801.25 -350 / -350 Lab / Micro Data Result Diagrams: 07/13/21 08:04 07/13/21 08:04 Labs: Laboratory Results - last 24 hr 07/10/21 05:28: Diff Path Review Reviewed 07/13/21 08:04: WBC 15.0 H, RBC 3.45 L, Hgb 11.4 L, Hct 32.1 L, MCV 93.0, MCH 33.0 H, MCHC 35.5, RDW Std Deviation 40.8, RDW Coeff of Angy 12.0, Plt Count 455 H, MPV 9.3, Immature Gran % (Auto) 1.800 H, Neut % (Auto) 81.4 H, Lymph % (Auto) 5.1 L, [place] % (Auto) 10.1 H, Eos % (Auto) 1.1, Baso % (Auto) 0.5, Absolute Neuts (auto) 12.2 H, Absolute Lymphs (auto) 0.76 L, Nucleated RBC % 0, Diff Path Review September07/13/21 08:04: Sodium 131 L, Potassium 3.4 L, Chloride 97 L, Carbon Dioxide 25.0, Anion Gap 9, BUN 15, Creatinine 0.68 L, Estim Creat Clear Calc 60.83, Est GFR (MDRD) Af Amer 145, Est GFR (MDRD) Non-Af 120, BUN/Creatinine Ratio 22.2 H, Glucose 103, Calcium 8.1 L, Phosphorus 1.8 L 07/13/21 11:40: Urine Color Yellow, Urine Clarity Clear, Urine pH 7.0, Ur Specific [place] 1.010, Urine Protein 30 H, Urine Glucose (UA) Normal, Urine Ketones Negative, Urine Occult Blood Negative, Urine Nitrite Negative, Urine Bilirubin Negative, Urine Urobilinogen Normal, Ur Leukocyte Esterase Negative, Urine RBC 0 SEEN, Urine WBC 0-5 SEEN, Ur Squamous Epith Cells 0 SEEN, Urine Bacteria 0 SEEN, Urine Mucus 0 SEEN Physical Exam Const alert, oriented x3 and no apparent distress Constitutional Narrative: Older white male who appears younger than stated age, sitting up in a chair at the bedside, significant other is at bedside, patient appears comfortable in no signs of dyspnea, nontoxic, much improved in last 24 hours Exam Limitations: no limitations Nutritional Appearance: obese HEENT head/scalp atraumatic and moist oral mucous membranes HEENT Narrative: Mallampati is 2, no thrush Head and Scalp: normocephalic Resp normal respiratory effort, no retractions, no use of accessory muscles and clear to auscultation bilaterally Resp Narrative: Few scattered bibasilar crackles Auscultation: crackles; Negative for rales, rhonchi or wheezes Cardio S1 normal heart sound, S2 normal heart sound, no murmurs, no rub, no gallops, no clicks and no JVD Cardio Narrative: Currently rate controlled but still having intermittent episodes of mild tachycardia, rhythm is still irregularly irregular GI soft to palpation GI Narrative: Abdomen is mild distended with minimal tenderness at surgical sites, no abnormal drainage or erythema, bowel sounds are normal Extremity Extremity Narrative: Trace bilateral lower extremity edema that is pitting in nature, no cyanosis or clubbing Peripheral Pulses: Yes pulses 2+ throughout Neuro oriented x3, moves all extremities and no focal motor deficits Sensorium / Orientation: awake and alert Speech: speech normal Assessment & Plan Assessment/Plan (1) Hypokalemia: (2) Hypophosphatemia: (3) Paroxysmal atrial fibrillation with RVR: (4) Acute cholecystitis: (5) S/P laparoscopic cholecystectomy: (6) Hyponatremia: PLAN: Acute cholecystitis with cholelithiasis -Patient was taken to the OR on 07/09/2021 where the patient was found to have acute gangrenous cholecystitis -Patient with flatus and bowel movement overnight -Patient tolerating cardiac carb controlled diet without any issues -General surgery is primary Postoperative ileus -Resolved Paroxysmal atrial fibrillation with RVR -Patient is still mildly intermittently tachycardic -Eliquis started last evening -Continue metoprolol as ordered -Continue verapamil as ordered -Echocardiogram is overall unimpressive -Continue to monitor on telemetry -Plan will be to follow-up with cardiology outpatient and consider cardioversion if he persistent atrial fibrillation after he has been anticoagulated for 6 to 8 weeks -Per discussion with Dr. Mckinney from cardiology okay for discharge from his standpoint Leukocytosis -Slight trend up in the last 24 hours -I suspect this is more likely related to diuresis completed yesterday as the patient is down about 3.2 L -UA is not suggestive of infection -No infiltrate on chest x-ray -Will check procalcitonin and MRSA PCR -We will hold on broadening antibiotics at this time -Continue with Zosyn per general surgery's recommendations Acute anemia -Related to acute hospitalization -No signs of acute bleeding -Continue to monitor Hyponatremia -Suspect hypervolemic hyponatremia -Slightly improved in last 24 hours -Continue home Lasix -Repeat Lasix IV push 40 mg x 1 dose today -Patient is down 3.2 L in last 24 hours but still significantly positive for stay -Recheck in a.m. Hypokalemia -IV potassium phosphate was ordered -Repeat lab in a.m. Hypophosphatemia -IV potassium phosphorus was ordered -Repeat phosphorus in a.m. History of seizure disorder -Patient follows with Dr. Borrero as an outpatient and in the process of down titration of Vimpat after the initiation of Lamictal -We will convert IV Vimpat to oral--> patient will continue on Vimpat 100 mg p.o. twice daily on discharge and we are weaning Lamictal over 7 days -Last day for Lamictal is 07/17/2021 CAD -History of stent to the mid RCA in 2012 -Stress test done in August 2017 that was negative for inducible ischemia -Continue baseline medications as able CKD stage II -Patient has chronic proteinuria -Follows with Dr. Carter -Patient is on losartan at baseline Hypertension -Continue home oral medications as able Hyperlipidemia -Continue home simvastatin as able DVT prophylaxis -Continue SCDs -Discontinue Lovenox -Start Eliquis 5 mg p.o. twice daily CODE STATUS -Full code Charges/Coding Visit Charges Inpatient E&M: 64079 Subs Hosp L2
[2021-07-13 16:46] LABS: Procalcitonin 0.22 ng/mL (0.00-0.09)
[2021-07-13] MEDS: Tamsulosin HCl 0.4 MG Capsule PO (17:37)
[2021-07-13] MEDS: Atorvastatin Calcium 10 MG Tablet PO (21:41)
[2021-07-14] VITALS (29 sets, daily range): BP systolic 99–156; BP diastolic 49–90; PULSE 65–143; RESP 17–26; TEMP 36.2–37.1; O2SAT 94–98
[2021-07-14] MEDS: Metoprolol Tartrate 5 MG/5 ML Vial IV (03:53)
[2021-07-14 06:12] LABS: Absolute Lymphocyte Count 0.91 X10^3/uL (0.83-4.51); Absolute Neutrophil Count 9.5 X10^3/uL (2.0-7.7); Basophil# 0.07 X10^3/uL; Basophil% 0.6 % (0-1); Eosinophil# 0.25 X10^3/uL; Lymphocyte # 0.91 X10^3/ul (0.83-4.51); Lymphocyte % 7.2 % (19-41); Mean Corp Hgb Conc 35.5 g/dL (32-36); Mean Corpuscular Hgb 34.1 pg (27.0-32.0); Mean Platelet Vol. 9.7 fl (6.2-12.0); Monocyte# 1.32 X10^3/uL; Monocyte% 10.5 % (0-10); NRBC Flagged by Analyzer 0 % (0-5); Neutrophil # 9.52 X10^3/uL (2.7-7.7); Neutrophil % 75.6 % (47-70); Platelet Count 444 K/mm3 (150-450); RBC Distribution Width CV 11.9 % (11.6-14.6); RBC Distribution Width SD 42.3 fl (35.1-43.9); Red Blood Count 3.23 M/mm3 (4.6-6.2); White Blood Count 12.6 K/mm3 (4.4-11.0)
[2021-07-14 07:08] LABS: ALB/GLOB Ratio 0.6 RATIO (0.9-2.4); AST(SGOT) 37 U/L (15-37); Alanine Aminotransfer ALT/SGPT 76 U/L (16-61); Albumin, Serum 2.1 g/dL (3.2-5.0); Alkaline Phosphatase 56 U/L (45-117); Anion Gap 5 (5-15); BUN 14 mg/dL (7-18); BUN/Creat Ratio 16.6 RATIO (10-20); Chloride 100 mmol/L (98-107); Creatinine, Serum 0.84 mg/dL (0.70-1.30); EST Glomerular Filtration Rate 93 mL/min (>60); Est Glom Filt Rate - Afr Amer 113 mL/min (>60); Estimated Creatinine Clearance 72.42 ml/min; Globulin 3.5 g/dL (2.2-4.2); Glucose 102 mg/dL (74-106); Phosphorus 2.5 mg/dL (2.5-4.9); Potassium 3.5 mmol/L (3.5-5.1); Protein, Total 5.6 g/dL (6.4-8.2); Sodium Level 131 mmol/L (136-145)
[2021-07-14] MEDS: Verapamil SR 240 MG Tablet 120 MG PO (09:18)
[2021-07-14] MEDS: Famotidine 20 MG Tablet PO (09:18)
[2021-07-14] MEDS: Lacosamide 50 MG Tablet 100 MG PO ×2 (09:18→21:40)
[2021-07-14] MEDS: Furosemide 20 MG Tablet PO (09:18)
[2021-07-14] MEDS: Fenofibrate 145 MG Tablet PO (09:19)
[2021-07-14] MEDS: Metoprolol Tartrate 50 MG Tablet PO (09:19)
[2021-07-14] MEDS: Ascorbic Acid 500 MG Tablet PO (09:19)
[2021-07-14] MEDS: Aspirin E.C. 81 MG Tablet PO (09:20)
[2021-07-14] MEDS: Multivitamins,Ther W-Minerals Tablet 1 TABLET PO (09:20)
[2021-07-14] MEDS: lamoTRIgine 25 MG Tablet PO (09:20)
[2021-07-14] MEDS: Cholecalciferol (VIT D3) 25 MCG TABLET (1,000 UNITS) PO (09:22)
[2021-07-14] MEDS: Spironolactone 25 MG Tablet PO (09:22)
[2021-07-14] MEDS: APIXABAN 5 MG TABLET PO ×2 (09:22→21:40)
[2021-07-14] MEDS: 0.9% Saline Lock 10 ML Syringe IV (10:30)
[2021-07-14] MEDS: traMADol 50 MG Tablet PO (10:45)
--- NOTE | 2021-07-14 10:53 | PCM.DC ---
Discharge Instructions Diet Discharge Diet: No restrictions Activity Discharge Activity: May Drive and May Shower Lifting Restrictions: No lifting greater than 15 pounds for 2 weeks after surgery Dressing / Incision Call your doctor if your incision/area has: Increased Pain/ Swelling and Foul Smelling Discharge Call your doctor if you observe: Fever of 101 or Higher and Shortness of breath Cleanse incision/area with: Soap & Water Additional Dressing/Incision Instructions:: Please leave Steri-Strips intact until they fall off spontaneously or are taken off at your follow-up visit Follow Up Care Please Follow Up With: Luis Rodriguez MD When: Within 1 week of hospital discharge Test Results: Test results from this visit will be discussed in further detail at your follow-up appointment, if applicable. Discharge Plan Admission Admit Date/Time: 07/09/21 11:43 Primary Reason for Your Visit: Acute cholecystitis Attending Provider: Marissa Leal Primary Care Provider: Brittany Combs Consulting Providers: Dar Martin Instructions Patient Instructions: After Gallbladder Surgery, Cholecystectomy Laparoscopic Dc Discharge Orders/Prescriptions Prescriptions: New metoprolol tartrate 25 mg Tablet 25 mg PO BID Qty: 60 RF: 0 Eliquis 5 mg Tablet 5 mg PO BID Qty: 60 RF: 0 amiodarone 200 mg Tablet 200 mg PO TID Qty: 64 RF: 0 Continued lamotrigine 25 mg tablet 25 mg PO DAILY Qty: 0 RF: 0 Changed Vimpat 100 mg tablet 100 mg PO Q12H Qty: 0 RF: 0 Discontinued zonisamide 100 mg capsule 100 mg PO .COMPLEX Qty: 42 RF: 0 No Action omega-3 fatty acids 1,000 mg capsule See Rx Instructions .ROUTE .COMPLEX RF: 0 amlodipine 10 mg tablet 10 mg PO QDAY RF: 0 cholecalciferol (vitamin D3) 1,000 unit tablet 1,000 unit PO QDAY RF: 0 losartan 100 mg tablet 100 mg PO DAILY RF: 0 furosemide 20 mg tablet 20 mg PO DAILY RF: 0 aspirin [Adult Aspirin Regimen] 81 mg tablet,delayed release (DR/EC) 81 mg PO DAILY RF: 0 spironolactone 25 mg tablet 25 mg PO DAILY RF: 0 simvastatin 20 MG tablet 20 mg PO QHS RF: 0 fenofibrate 160 MG tablet 160 mg PO DAILY RF: 0 ascorbic acid (vitamin C) 500 MG tablet 500 mg PO DAILY@0800 RF: 0 selenium 100 MCG tablet 200 mcg PO DAILY RF: 0 vitamin B complex 1 EACH capsule 1 ea PO DAILY RF: 0 vitamin E (dl, acetate) 400 UNITS capsule 400 units PO DAILY RF: 0 multivitamin with folic acid 1 TABLET tablet 1 tab PO DAILY RF: 0 L.acidcandice baldwinB. lactis 1 EACH capsule 1 ea PO DAILY RF: 0 metoprolol succinate 100 mg tablet extended release 24 hr 100 mg PO QDAY RF: 0 Referrals / Follow Up: Allan Mcpherson MD [STAFF PHYSICIAN] - Within 2 Weeks Brittany Combs MD [Primary Care Provider] - Luis Rodriguez MD [STAFF PHYSICIAN] -
--- NOTE | 2021-07-14 10:58 | PCM.DC.SUM ---
Providers Date of Admission: 07/09/21 Primary Care Physician: Dr. Brittany Combs MD Consultations 07/12/21 14:12 Consult: Cardiology Routine Consulting Provider: Dar Martin Reason for Consult: A-FIb EMERGENT Consult: No MD Notified: Yes Date Notified: 07/12/21 Time Notified: 14:12 Method of Notification: per Dr. Leal Reason For Visit: ACUTE CHOLEYSTITIS Diagnosis Discharge Diagnosis (1) Hypokalemia: Status: Acute Code(s): E87.6 - Hypokalemia (2) Hypophosphatemia: Status: Acute Code(s): E83.39 - Other disorders of phosphorus metabolism (3) Paroxysmal atrial fibrillation with RVR: Status: Acute Code(s): I48.0 - Paroxysmal atrial fibrillation (4) Acute cholecystitis: Status: Resolved Code(s): K81.0 - Acute cholecystitis (5) S/P laparoscopic cholecystectomy: Status: Acute Code(s): Z90.49 - Acquired absence of other specified parts of digestive tract (6) Hyponatremia: Status: Acute Code(s): E87.1 - Hypo-osmolality and hyponatremia Medications at Discharge Home Medications fenofibrate 160 mg PO DAILY 05/07/13 simvastatin 20 mg PO QHS 05/07/13 ascorbic acid (vitamin C) 500 mg PO DAILY@0800 11/14/14 multivitamin with folic acid 1 tab PO DAILY 11/14/14 selenium 200 mcg PO DAILY 11/14/14 vitamin B complex 1 ea PO DAILY 11/14/14 vitamin E (dl, acetate) 400 units PO DAILY 11/14/14 amlodipine 10 mg tablet 10 mg PO QDAY 09/12/17 cholecalciferol (vitamin D3) 25 mcg (1,000 unit) tablet 1,000 unit PO QDAY 09/12/17 omega-3 fatty acids 1,000 mg capsule See Rx Instructions .ROUTE .COMPLEX cap 09/15/17 losartan 100 mg tablet 100 mg PO DAILY 09/26/18 L.acidoph, paracasei,B. lactis 1 ea PO DAILY 11/07/19 aspirin 81 mg tablet,delayed release 81 mg PO DAILY 05/27/20 furosemide 20 mg tablet 20 mg PO DAILY tab 05/27/20 metoprolol succinate 100 mg tablet,extended release 24 hr 100 mg PO QDAY tab 12/09/20 spironolactone 25 mg tablet 25 mg PO DAILY 06/23/21 Vimpat 100 mg PO Q12H #0 tab 07/15/21 amiodarone 200 mg PO TID #64 tab 07/15/21 apixaban [Eliquis] 5 mg PO BID #60 tab 07/15/21 lamotrigine 25 mg PO DAILY #0 tab 07/15/21 metoprolol tartrate 25 mg PO BID #60 tab 07/15/21 Hospital Course Operations cholecystecomy Summary of Care Provided Hospital Course: Patient initially presented with generalized abdominal pain on 07/07/2021. I saw him in the emergency department for this presentation, but with his nonspecific symptoms and absence of convincing laboratories or imaging, he was dismissed with short term outpatient follow-up. He returned 07/09/2021 with localization of his abdominal pain in the right upper quadrant, worsening of his leukocytosis over 20,000, and CT imaging now demonstrating evidence of pericholecystic fluid. With this constellation of changes, I recommended urgent laparoscopic cholecystectomy with possible cholangiogram. During his ER evaluation, however, he was noted to be in A. fib with RVR?but was notably asymptomatic. Hospitalist service was consulted and the patient was begun on a Cardizem drip. This resulted in some improvement in the patient's rate control and he was ultimately taken to the operating room the same day as his presentation. He underwent a difficult, but uncomplicated laparoscopic cholecystectomy and was admitted postoperatively. He was continued on the Cardizem drip and his laboratories were closely monitored. Due to some inadvertent intraoperative contamination with infected bile, I maintained him on Zosyn postoperatively as well. Even preoperatively, patient's CT imaging showed evidence of a developing ileus in response to his gallbladder pathology and this was borne out with absence of bowel function immediately postop. Additional note from preop, the patient's neurologist contacted me personally to provide instruction on managing his seizure prophylaxis as he is transitioning from Vimpat to lamotrigine and these instructions were passed along to the hospitalist for implementation. Gradually the patient's leukocytosis decreased and his bowel function returned. With these changes, his diet was advanced and his IV fluid support was withdrawn. He did require some extensive diuresis due to a net positive fluid balance and some shortness of breath. By postoperative day 4 the patient appeared clinically well, but had a slight increase in his leukocytosis and, therefore, I elected to observe him for 1 more evening with morning labs to ensure that he was not showing subtle signs of abscess development. By postoperative day 5, this leukocytosis had improved and discharge was discussed with the hospitalist service, however, he exhibited a significant increase in his heart rate?again asymptomatic?and cardiology was re-involved. Patient was placed on an amiodarone drip with hopes of chemically cardioverting him. Cardiology did discuss the possible need for DC cardioversion given that the patient's primary rhythm was atrial flutter. On the morning of postoperative day 6, the patient persisted in this arrhythmia and he was taken to the Financial Coordinator for JUSTO guided DC cardioversion. Just prior to undergoing this procedure, however, his rhythm was rechecked and he had demonstrated reversion to sinus rhythm. With this change, the plans for DC cardioversion were aborted and the patient was returned to his room. Hospitalist notified me that patient was deemed medically stable for discharge. I presented to patient's bedside to discuss wound care and follow-up instructions. They expressed appreciation for this communication willingness to follow through as described. Therefore the patient was granted discharge with follow-ups arranged with me and Dr. Mcpherson of cardiology. Physical Exam Resp normal respiratory effort Cardio regular rate and regular rhythm GI GI Narrative: Nondistended, soft, incision sites appropriate Weight / BMI Weight Weight: 216 lb 7.903 oz Body Mass Index (BMI) 29.5 ABG / Lab / Microbiology Data Result Diagrams: 07/15/21 04:49 07/15/21 04:49 Laboratory: Laboratory Results - last 24 hr 07/13/21 11:40: Urine Color Yellow, Urine Clarity Clear, Urine pH 7.0, Ur Specific [place] 1.010, Urine Protein 30 H, Urine Glucose (UA) Normal, Urine Ketones Negative, Urine Occult Blood Negative, Urine Nitrite Negative, Urine Bilirubin Negative, Urine Urobilinogen Normal, Ur Leukocyte Esterase Negative, Urine RBC 0 SEEN, Urine WBC 0-5 SEEN, Ur Squamous Epith Cells 0 SEEN, Urine Bacteria 0 SEEN, Urine Mucus 0 SEEN 07/13/21 15:38: Procalcitonin 0.22 H 07/14/21 05:36: WBC 12.6 H, RBC 3.23 L, Hgb 11.0 L, Hct 31.0 L, MCV 96.0 H, MCH 34.1 H, MCHC 35.5, RDW Std Deviation 42.3, RDW Coeff of Angy 11.9, Plt Count 444, MPV 9.7, Immature Gran % (Auto) 4.100 H, Neut % (Auto) 75.6 H, Lymph % (Auto) 7.2 L, [place] % (Auto) 10.5 H, Eos % (Auto) 2.0, Baso % (Auto) 0.6, Absolute Neuts (auto) 9.5 H, Absolute Lymphs (auto) 0.91, Nucleated RBC % 0 07/14/21 05:36: Sodium 131 L, Potassium 3.5, Chloride 100, Carbon Dioxide 26.0, Anion Gap 5, BUN 14, Creatinine 0.84, Estim Creat Clear Calc 72.42, Est GFR (MDRD) Af Amer 113, Est GFR (MDRD) Non-Af 93, BUN/Creatinine Ratio 16.6, Glucose 102, Calcium 8.0 L, Phosphorus 2.5, Total Bilirubin 0.40, AST 37, ALT 76 H, Alkaline Phosphatase 56, Total Protein 5.6 L, Albumin 2.1 L, Globulin 3.5, Albumin/Globulin Ratio 0.6 L Microbiology: Microbiology 07/13/21 11:40 Urine, Clean Catch Urine Culture - Preliminary Culture exhibits no growth. Meaningful Use Info Meaningful Use Diagnoses (Choose all that apply): None applicable Discharge Plan Admission Admit Date/Time: 07/09/21 11:43 Primary Reason for Your Visit: Acute cholecystitis Attending Provider: Marissa Leal Primary Care Provider: Brittany Combs Consulting Providers: Dar Martin Instructions Patient Instructions: After Gallbladder Surgery, Cholecystectomy Laparoscopic Dc Discharge Orders/Prescriptions Prescriptions: New metoprolol tartrate 25 mg Tablet 25 mg PO BID Qty: 60 RF: 0 Eliquis 5 mg Tablet 5 mg PO BID Qty: 60 RF: 0 amiodarone 200 mg Tablet 200 mg PO TID Qty: 64 RF: 0 Continued lamotrigine 25 mg tablet 25 mg PO DAILY Qty: 0 RF: 0 Changed Vimpat 100 mg tablet 100 mg PO Q12H Qty: 0 RF: 0 Discontinued zonisamide 100 mg capsule 100 mg PO .COMPLEX Qty: 42 RF: 0 No Action omega-3 fatty acids 1,000 mg capsule See Rx Instructions .ROUTE .COMPLEX RF: 0 amlodipine 10 mg tablet 10 mg PO QDAY RF: 0 cholecalciferol (vitamin D3) 1,000 unit tablet 1,000 unit PO QDAY RF: 0 losartan 100 mg tablet 100 mg PO DAILY RF: 0 furosemide 20 mg tablet 20 mg PO DAILY RF: 0 aspirin [Adult Aspirin Regimen] 81 mg tablet,delayed release (DR/EC) 81 mg PO DAILY RF: 0 spironolactone 25 mg tablet 25 mg PO DAILY RF: 0 simvastatin 20 MG tablet 20 mg PO QHS RF: 0 fenofibrate 160 MG tablet 160 mg PO DAILY RF: 0 ascorbic acid (vitamin C) 500 MG tablet 500 mg PO DAILY@0800 RF: 0 selenium 100 MCG tablet 200 mcg PO DAILY RF: 0 vitamin B complex 1 EACH capsule 1 ea PO DAILY RF: 0 vitamin E (dl, acetate) 400 UNITS capsule 400 units PO DAILY RF: 0 multivitamin with folic acid 1 TABLET tablet 1 tab PO DAILY RF: 0 L.acidoph, paracasei,B. lactis 1 EACH capsule 1 ea PO DAILY RF: 0 metoprolol succinate 100 mg tablet extended release 24 hr 100 mg PO QDAY RF: 0 Referrals / Follow Up: Allan Mcpherson MD [STAFF PHYSICIAN] - Within 2 Weeks Brittany Combs MD [Primary Care Provider] - Luis Rodriguez MD [STAFF PHYSICIAN] - Disposition Discharge Orders: Discharge Patient (Routine); Ordered 07/15/21 Ordered By: Dr. Luis Rodriguez
[2021-07-14 13:57] LABS: MG Sendout 1.9 mg/dL (1.6-2.3)
[2021-07-14 14:44] LABS: M R Staph aureus DNA By PCR Negative (Negative); Probe Check PASS; Specimen Processing Control PASS
--- NOTE | 2021-07-14 15:53 | PCM.PROGNOTE ---
Subjective Subjective Patient states he is feeling better. He had elevated heart rates overnight and required on 1 IV push dose of metoprolol. Case was discussed with cardiology this morning there are no start on amiodarone drip. P.o. intake has been good. Patient is anxious to go home Objective Data Objective Data Vital Signs: Vital Signs Temp Pulse Resp BP Pulse Ox 97.9 F 65 25 H 99/66 96 07/14/21 15:00 07/14/21 15:00 07/14/21 15:00 07/14/21 15:00 07/14/21 15:00 Oxygen Flow Rate (L/min) 3 Oxygen Delivery Method Room Air Weight: 98.2 kg Body Mass Index (BMI) 29.5 Intake & Output: Intake and Output for Last 24 Hours 07/12/21 07/13/21 07/14/21 23:59 23:59 23:59 Intake Total 1938.75 / 1938.75 887 / 887 704.54 / 704.54 Output Total 3290 / 3740 700 / 1700 1300 / 1300 Balance -1351.25 / -1801.25 187 / -813 -595.46 / -595.46 Lab / Micro Data Result Diagrams: 07/14/21 05:36 07/14/21 05:36 Labs: Laboratory Results - last 24 hr 07/13/21 08:04: Magnesium 1.9 07/13/21 15:38: Procalcitonin 0.22 H 07/14/21 05:36: WBC 12.6 H, RBC 3.23 L, Hgb 11.0 L, Hct 31.0 L, MCV 96.0 H, MCH 34.1 H, MCHC 35.5, RDW Std Deviation 42.3, RDW Coeff of Angy 11.9, Plt Count 444, MPV 9.7, Immature Gran % (Auto) 4.100 H, Neut % (Auto) 75.6 H, Lymph % (Auto) 7.2 L, [place] % (Auto) 10.5 H, Eos % (Auto) 2.0, Baso % (Auto) 0.6, Absolute Neuts (auto) 9.5 H, Absolute Lymphs (auto) 0.91, Nucleated RBC % 0 07/14/21 05:36: Sodium 131 L, Potassium 3.5, Chloride 100, Carbon Dioxide 26.0, Anion Gap 5, BUN 14, Creatinine 0.84, Estim Creat Clear Calc 72.42, Est GFR (MDRD) Af Amer 113, Est GFR (MDRD) Non-Af 93, BUN/Creatinine Ratio 16.6, Glucose 102, Calcium 8.0 L, Phosphorus 2.5, Total Bilirubin 0.40, AST 37, ALT 76 H, Alkaline Phosphatase 56, Total Protein 5.6 L, Albumin 2.1 L, Globulin 3.5, Albumin/Globulin Ratio 0.6 L 07/14/21 08:45: MRSA (PCR) Negative Micro: Microbiology 07/13/21 11:40 Urine, Clean Catch Urine Culture - Preliminary Culture exhibits no growth. Physical Exam Const alert, oriented x3 and no apparent distress Constitutional Narrative: Older white male who appears younger than stated age, sitting up in a chair at the bedside, significant other is at bedside, patient appears comfortable in no signs of dyspnea, nontoxic Exam Limitations: no limitations Nutritional Appearance: obese HEENT normocephalic, head/scalp atraumatic and moist oral mucous membranes Eyes conjunctivae normal Neck no lymphadenopathy and supple Neck Narrative: Trachea is midline without thyroid enlargement, JVD noted Resp normal respiratory effort, no retractions, no use of accessory muscles and clear to auscultation bilaterally Resp Narrative: Few scattered bibasilar crackles Auscultation: crackles; Negative for rales, rhonchi or wheezes Cardio S1 normal heart sound, S2 normal heart sound, no murmurs, no rub, no gallops, no clicks and no JVD Cardio Narrative: Tachycardic, rhythm is regular and upon review of his rhythm strip it appears that he is in a flutter at this time GI soft to palpation and non-tender GI Narrative: Well-healing incisions, bowel sounds are normal Extremity Extremity Narrative: Trace bilateral lower extremity edema that is pitting in nature, no cyanosis or clubbing Skin no rashes or lesions noted, no wounds, skin turgor normal, no jaundice, no petechiae and no mottling Neuro oriented x3, moves all extremities, no focal motor deficits and no sensory deficits noted Sensorium / Orientation: awake and alert Speech: speech normal Assessment & Plan Assessment/Plan (1) Hypokalemia: (2) Hypophosphatemia: (3) Paroxysmal atrial fibrillation with RVR: (4) Acute cholecystitis: (5) S/P laparoscopic cholecystectomy: (6) Hyponatremia: PLAN: Acute cholecystitis with cholelithiasis -Patient was taken to the OR on 07/09/2021 where the patient was found to have acute gangrenous cholecystitis -Patient with flatus and bowel movement overnight -Patient tolerating cardiac carb controlled diet without any issues -General surgery is primary Postoperative ileus -Resolved Paroxysmal atrial flutter/fibrillation with RVR -Patient more tachycardic today -Rhythm peers flutter rate now -Discussed with cardiology and amiodarone drip to be started -Continue Eliquis -Continue metoprolol as ordered -Continue verapamil as ordered -Echocardiogram is overall unimpressive -Continue to monitor on telemetry Leukocytosis -Better today -No signs of infection -Pro-Jose Angel is only 0.22 -Zosyn discontinued Acute anemiaPro-Jose Angel is only 0.22 -Related to acute hospitalization -No signs of acute bleeding -Continue to monitor Hyponatremia -Suspect hypervolemic hyponatremia -stable -Continue home Lasix -No extra Lasix today -Recheck in a.m. Hypokalemia -resolved Hypophosphatemia -resolved History of seizure disorder -Patient follows with Dr. Borrero as an outpatient and in the process of down titration of Vimpat after the initiation of Lamictal -We will convert IV Vimpat to oral--> patient will continue on Vimpat 100 mg p.o. twice daily on discharge and we are weaning Lamictal over 7 days -Last day for Lamictal is 07/17/2021 CAD -History of stent to the mid RCA in 2012 -Stress test done in August 2017 that was negative for inducible ischemia -Continue baseline medications as able CKD stage II -Patient has chronic proteinuria -Follows with Dr. Carter -Patient is on losartan at baseline Hypertension -Continue home oral medications as able Hyperlipidemia -Continue home simvastatin as able DVT prophylaxis -Continue SCDs -Eliquis CODE STATUS -Full code Charges/Coding Visit Charges Inpatient E&M: 42172 Subs Hosp L2
--- NOTE | 2021-07-14 15:59 | PCM.PN.SRG ---
Subjective Subjective Patient was seen and examined during AM rounds. He reports a difficult overnight course as he was interrupted just prior to sleep by a family related matter. He denies any significant abdominal pain. He is having regular bowel function and tolerating regular diet without any subsequent nausea or vomiting. He denies any fevers or chills. He expresses some frustration over his rapid heart rate?for which he insists he is asymptomatic. Objective Data Objective Data Vital Signs: Vital Signs Temp Pulse Resp BP Pulse Ox 97.9 F 65 25 H 99/66 96 07/14/21 15:00 07/14/21 15:00 07/14/21 15:00 07/14/21 15:00 07/14/21 15:00 Oxygen Flow Rate (L/min) 3 Oxygen Delivery Method Room Air Weight: 216 lb 7.903 oz Body Mass Index (BMI) 29.5 Intake & Output: Intake and Output for Last 24 Hours 07/12/21 07/13/21 07/14/21 23:59 23:59 23:59 Intake Total 1938.75 / 1938.75 887 / 887 704.54 / 704.54 Output Total 3290 / 3740 700 / 1700 1300 / 1300 Balance -1351.25 / -1801.25 187 / -813 -595.46 / -595.46 Lab / Micro Data Result Diagrams: 07/14/21 05:36 07/14/21 05:36 Labs: Laboratory Results - last 24 hr 07/13/21 08:04: Magnesium 1.9 07/13/21 15:38: Procalcitonin 0.22 H 07/14/21 05:36: WBC 12.6 H, RBC 3.23 L, Hgb 11.0 L, Hct 31.0 L, MCV 96.0 H, MCH 34.1 H, MCHC 35.5, RDW Std Deviation 42.3, RDW Coeff of Angy 11.9, Plt Count 444, MPV 9.7, Immature Gran % (Auto) 4.100 H, Neut % (Auto) 75.6 H, Lymph % (Auto) 7.2 L, [place] % (Auto) 10.5 H, Eos % (Auto) 2.0, Baso % (Auto) 0.6, Absolute Neuts (auto) 9.5 H, Absolute Lymphs (auto) 0.91, Nucleated RBC % 0 07/14/21 05:36: Sodium 131 L, Potassium 3.5, Chloride 100, Carbon Dioxide 26.0, Anion Gap 5, BUN 14, Creatinine 0.84, Estim Creat Clear Calc 72.42, Est GFR (MDRD) Af Amer 113, Est GFR (MDRD) Non-Af 93, BUN/Creatinine Ratio 16.6, Glucose 102, Calcium 8.0 L, Phosphorus 2.5, Total Bilirubin 0.40, AST 37, ALT 76 H, Alkaline Phosphatase 56, Total Protein 5.6 L, Albumin 2.1 L, Globulin 3.5, Albumin/Globulin Ratio 0.6 L 07/14/21 08:45: MRSA (PCR) Negative Micro: Microbiology 07/13/21 11:40 Urine, Clean Catch Urine Culture - Preliminary Culture exhibits no growth. Physical Exam Const oriented x3 and no apparent distress GI GI Narrative: Mild but improved abdominal distention. Soft. Steri-Strips remain intact no periincisional erythema or drainage. Tender to palpation directly over incision sites, otherwise nontender to palpation. Assessment & Plan Assessment/Plan (1) Acute cholecystitis: (2) S/P laparoscopic cholecystectomy: (3) Ileus due to infection: (4) Paroxysmal atrial fibrillation with RVR: PLAN: Neuro: As needed acetaminophen, as needed tramadol. On lacosamide and lamotrigine per neurologist Pulm/CV: No current pulmonary issues. Patient required reversion to amiodarone gtt but now with improved rate control. DC cardioversion may be required if patient does not cardiovert with this medication. FEN/GI: Improved hypokalemia. Patient with return of bowel function and tolerating a diet. Minimal abdominal pain Heme/ID: Hemoglobin stable. Eliquis anticoagulation. Leukocytosis decreased in Zosyn stopped today Endo: No acute issues Proph: Ambulate as able. Eliquis. SCDs Dispo: Continue inpatient stay secondary to cardiac arrhythmias Luis Rodriguez MD General Surgery Endocrine Surgery Pager: [facility] [address] [place] [address], [facility], [address] [place] [address] Office: [phone] Charges/Coding Visit Charges Inpatient E&M: 11010 Subs Hosp L2
--- NOTE | 2021-07-14 16:18 | NURSING ---
According to pharmacist, ok to run magnesium sulfate and amiodarone together
[2021-07-14] MEDS: Tamsulosin HCl 0.4 MG Capsule PO (16:38)
--- NOTE | 2021-07-14 19:17 | PCM.PN.CARD ---
Subjective Subjective The patient is awake and alert. He denies any ongoing chest discomfort or worsening shortness of breath/dyspnea. He states he cannot sense his palpitations. Objective Data Vital Signs: Vital Signs Temp Pulse Resp BP Pulse Ox 97.9 F 78 22 H 136/71 H 98 07/14/21 15:00 07/14/21 19:00 07/14/21 19:00 07/14/21 19:00 07/14/21 19:00 Oxygen Flow Rate (L/min) 3 Oxygen Delivery Method Room Air Weight: 216 lb 7.903 oz Body Mass Index (BMI) 29.5 Intake & Output: Intake and Output for Last 24 Hours 07/12/21 07/13/21 07/14/21 23:59 23:59 23:59 Intake Total 1938.75 / 1938.75 887 / 887 1279.02 / 1279.02 Output Total 3290 / 3740 700 / 1700 1300 / 1300 Balance -1351.25 / -1801.25 187 / -813 -20.98 / -20.98 Lab / Micro Data Result Diagrams: 07/14/21 05:36 07/14/21 05:36 Labs: Laboratory Results - last 24 hr 07/13/21 08:04: Magnesium 1.9 07/14/21 05:36: WBC 12.6 H, RBC 3.23 L, Hgb 11.0 L, Hct 31.0 L, MCV 96.0 H, MCH 34.1 H, MCHC 35.5, RDW Std Deviation 42.3, RDW Coeff of Angy 11.9, Plt Count 444, MPV 9.7, Immature Gran % (Auto) 4.100 H, Neut % (Auto) 75.6 H, Lymph % (Auto) 7.2 L, [place] % (Auto) 10.5 H, Eos % (Auto) 2.0, Baso % (Auto) 0.6, Absolute Neuts (auto) 9.5 H, Absolute Lymphs (auto) 0.91, Nucleated RBC % 0 07/14/21 05:36: Sodium 131 L, Potassium 3.5, Chloride 100, Carbon Dioxide 26.0, Anion Gap 5, BUN 14, Creatinine 0.84, Estim Creat Clear Calc 72.42, Est GFR (MDRD) Af Amer 113, Est GFR (MDRD) Non-Af 93, BUN/Creatinine Ratio 16.6, Glucose 102, Calcium 8.0 L, Phosphorus 2.5, Total Bilirubin 0.40, AST 37, ALT 76 H, Alkaline Phosphatase 56, Total Protein 5.6 L, Albumin 2.1 L, Globulin 3.5, Albumin/Globulin Ratio 0.6 L 07/14/21 08:45: MRSA (PCR) Negative Micro: Microbiology 07/13/21 11:40 Urine, Clean Catch Urine Culture - Preliminary Culture exhibits no growth. Cardiology Labs/Tests 07/13/21 08:04: Magnesium 1.9 07/14/21 05:36: WBC 12.6 H, RBC 3.23 L, Hgb 11.0 L, Hct 31.0 L, MCV 96.0 H, MCH 34.1 H, MCHC 35.5, Plt Count 444, MPV 9.7, Immature Gran % (Auto) 4.100 H, Neut % (Auto) 75.6 H, Lymph % (Auto) 7.2 L, [place] % (Auto) 10.5 H, Eos % (Auto) 2.0, Baso % (Auto) 0.6, Absolute Neuts (auto) 9.5 H, Nucleated RBC % 0 07/14/21 05:36: Sodium 131 L, Potassium 3.5, Chloride 100, Carbon Dioxide 26.0, Anion Gap 5, BUN 14, Creatinine 0.84, Est GFR (MDRD) Af Amer 113, Est GFR (MDRD) Non-Af 93, BUN/Creatinine Ratio 16.6, Glucose 102, Calcium 8.0 L, Phosphorus 2.5, Total Bilirubin 0.40 Rhythm: Atrial fibrillation/flutter with RVR Physical Exam Const alert, oriented x3 and no apparent distress Orientation / Consciousness: awake HEENT normocephalic, head/scalp atraumatic and hearing grossly normal bilaterally Eyes PERRL and EOMs intact bilaterally Neck supple and no JVD Resp clear to auscultation bilaterally Cardio Rhythm: abnormal rhythm irregularly irregular Heart Sounds: S1 normal and S2 normal GI normal to inspection, nondistended, normoactive bowel sounds Extremity no pedal edema Skin no rashes or lesions noted Psych mental status grossly normal Assessment & Plan Assessment/Plan (1) Paroxysmal atrial fibrillation with RVR: PLAN: The patient has a history of paroxysmal atrial fibrillation. He has had recurrent atrial fibrillation/flutter status post his laparoscopic cholecystectomy. He has been on rate limiting therapy, however, his rate has been elevated. Thus he is going to attempt additional medical therapy in order to assist with rate control and potentially regaining sinus rhythm. He will be placed on IV amiodarone therapy. Depending upon his response he may need to be considered for JUSTO guided synchronized biphasic DC cardioversion. (2) Atherosclerotic heart disease of [place] coronary artery without angina pectoris: QUALIFIERS: [place] vs. transplanted heart: [place] heart Qualified Code(s): I25.10 - Atherosclerotic heart disease of [place] coronary artery without angina pectoris PLAN: The patient has a history of underlying CAD. He appears to be stable with no acute symptoms or adverse events. He will continue medical management. (3) History of coronary artery stent placement: PLAN: The patient has been reported as going through PCI in the past. At the moment he is without any acute coronary syndrome related symptoms. He will continue medical therapy. (4) Hyperlipidemia: QUALIFIERS: Hyperlipidemia type: pure hypercholesterolemia Qualified Code(s): E78.00 - Pure hypercholesterolemia, unspecified PLAN: The patient should continue risk factor evaluation care as deemed appropriate. (5) Essential (primary) hypertension: PLAN: The patient's blood pressure can be followed with his medicines adjusted as needed. (6) S/P laparoscopic cholecystectomy: PLAN: The patient will continue evaluation care per internal medicine and general surgery. Addt'l Comments The patient's case has been discussed and reviewed with the patient, his spouse, and Dr. Leal. This note was generated using a voice recognition system and there may be incorrect words, spelling or punctuation that were not noted when reviewing the office note prior to saving.
[2021-07-14] MEDS: Atorvastatin Calcium 10 MG Tablet PO (21:40)
[2021-07-14] MEDS: Metoprolol Tartrate 25 MG Tablet PO (21:43)
[2021-07-15] VITALS (14 sets, daily range): BP systolic 107–161; BP diastolic 70–101; PULSE 67–110; RESP 19–26; TEMP 36.3–36.8; O2SAT 93–100
[2021-07-15 05:21] LABS: Absolute Lymphocyte Count 0.86 X10^3/uL (0.83-4.51); Absolute Neutrophil Count 10.2 X10^3/uL (2.0-7.7); Basophil# 0.09 X10^3/uL; Basophil% 0.7 % (0-1); Eosinophils% 2.3 % (0-5); Hematocrit 31.3 % (40-54); Hemoglobin 11.2 g/dL (13.0-16.5); Lymphocyte # 0.86 X10^3/ul (0.83-4.51); Lymphocyte % 6.5 % (19-41); Mean Corp Hgb Conc 35.8 g/dL (32-36); Mean Corpuscular Hgb 33.5 pg (27.0-32.0); Mean Corpuscular Volume 93.7 fL (80-94); Mean Platelet Vol. 10.3 fl (6.2-12.0); Monocyte# 1.09 X10^3/uL; Monocyte% 8.3 % (0-10); NRBC Flagged by Analyzer 0 % (0-5); Neutrophil # 10.17 X10^3/uL (2.7-7.7); Neutrophil % 77.3 % (47-70); Platelet Count 362 K/mm3 (150-450); RBC Distribution Width CV 11.9 % (11.6-14.6); RBC Distribution Width SD 40.6 fl (35.1-43.9); Red Blood Count 3.34 M/mm3 (4.6-6.2); White Blood Count 13.2 K/mm3 (4.4-11.0)
[2021-07-15 05:51] LABS: Anion Gap 7 (5-15); BUN 13 mg/dL (7-18); Chloride 100 mmol/L (98-107); Creatinine, Serum 0.77 mg/dL (0.70-1.30); EST Glomerular Filtration Rate 104 mL/min (>60); Est Glom Filt Rate - Afr Amer 126 mL/min (>60); Estimated Creatinine Clearance 60.83 ml/min; Glucose 107 mg/dL (74-106); Potassium 3.7 mmol/L (3.5-5.1); Sodium Level 133 mmol/L (136-145)
--- NOTE | 2021-07-15 09:13 | PCM.PN.SRG ---
Subjective Subjective Patient was seen and examined during AM rounds. He reports that he had a very restful overnight course, but was awakened by cardiology with plans for cardioversion this morning. He denies any abdominal discomfort, fevers, chills, or dietary intolerance. He continues to deny any chest pain or shortness of breath. Objective Data Objective Data Vital Signs: Vital Signs Temp Pulse Resp BP Pulse Ox 98.3 F 110 H 26 H 161/96 H 96 07/15/21 08:00 07/15/21 08:00 07/15/21 08:00 07/15/21 08:00 07/15/21 08:00 Oxygen Flow Rate (L/min) 3 Oxygen Delivery Method Room Air Weight: 217 lb 6.012 oz Body Mass Index (BMI) 29.5 Intake & Output: Intake and Output for Last 24 Hours 07/13/21 07/14/21 07/15/21 23:59 23:59 23:59 Intake Total 887 / 887 1279.02 / 1279.02 312.63 / 312.63 Output Total 700 / 1700 1300 / 1995 1195 / 1195 Balance 187 / -813 -20.98 / -715.98 -882.37 / -882.37 Lab / Micro Data Result Diagrams: 07/15/21 04:49 07/15/21 04:49 Labs: Laboratory Results - last 24 hr 07/13/21 08:04: Magnesium 1.9 07/14/21 08:45: MRSA (PCR) Negative 07/15/21 04:49: WBC 13.2 H, RBC 3.34 L, Hgb 11.2 L, Hct 31.3 L, MCV 93.7, MCH 33.5 H, MCHC 35.8, RDW Std Deviation 40.6, RDW Coeff of Angy 11.9, Plt Count 362, MPV 10.3, Immature Gran % (Auto) 4.900 H, Neut % (Auto) 77.3 H, Lymph % (Auto) 6.5 L, [place] % (Auto) 8.3, Eos % (Auto) 2.3, Baso % (Auto) 0.7, Absolute Neuts (auto) 10.2 H, Absolute Lymphs (auto) 0.86, Nucleated RBC % 0 07/15/21 04:49: Sodium 133 L, Potassium 3.7, Chloride 100, Carbon Dioxide 26.0, Anion Gap 7, BUN 13, Creatinine 0.77, Estim Creat Clear Calc 60.83, Est GFR (MDRD) Af Amer 126, Est GFR (MDRD) Non-Af 104, BUN/Creatinine Ratio 17.0, Glucose 107 H, Calcium 8.0 L Micro: Microbiology 07/13/21 11:40 Urine, Clean Catch Urine Culture - Preliminary Culture exhibits no growth. Physical Exam Const oriented x3 and no apparent distress Resp normal respiratory effort GI GI Narrative: Mildly distended, soft, nontender to palpation. Incision sites remain covered with Steri-Strips, but there is no periincisional erythema or drainage. Assessment & Plan Assessment/Plan (1) Acute cholecystitis: (2) S/P laparoscopic cholecystectomy: (3) Ileus due to infection: (4) Paroxysmal atrial fibrillation with RVR: PLAN: Neuro: As needed acetaminophen, as needed tramadol. On lacosamide and lamotrigine per neurologist Pulm/CV: No current pulmonary issues. Patient required reversion to amiodarone gtt but now with improved rate control. Unfortunately, he did not revert to sinus rhythm, so cardiology has elected to proceed with JUSTO guided DC cardioversion this morning. FEN/GI: Improved hypokalemia. Tolerating cardiac diet. Minimal abdominal pain Heme/ID: Hemoglobin stable. Eliquis anticoagulation. Leukocytosis slightly increased to 13 from 12. Patient afebrile and without clinical signs of infection. Zosyn stopped yesterday. Endo: No acute issues Proph: Ambulate as able. Eliquis. SCDs Dispo: Continue inpatient stay secondary to cardiac arrhythmias Luis Rodriguez MD General Surgery Endocrine Surgery Pager: [facility] [address] [place] [address], [facility], [address] [place] [address] Office: [phone] Charges/Coding Visit Charges Inpatient E&M: 15044 Subs Hosp L2
[2021-07-15 09:25] LABS: Pathologist Review Reviewed
--- NOTE | 2021-07-15 09:29 | PN.CARD_ITS ---
Subjective Subjective The patient denies any ongoing chest discomfort or difficulty breathing. He has not felt his palpitations or rapid rates. Objective Data Vital Signs: Vital Signs Temp Pulse Resp BP Pulse Ox 98.3 F 110 H 26 H 161/96 H 96 07/15/21 08:00 07/15/21 08:00 07/15/21 08:00 07/15/21 08:00 07/15/21 08:00 Oxygen Flow Rate (L/min) 3 Oxygen Delivery Method Room Air Weight: 217 lb 6.012 oz Body Mass Index (BMI) 29.5 Intake & Output: Intake and Output for Last 24 Hours 07/13/21 07/14/21 07/15/21 23:59 23:59 23:59 Intake Total 887 / 887 1279.02 / 1279.02 312.63 / 312.63 Output Total 700 / 1700 1300 / 1995 1195 / 1195 Balance 187 / -813 -20.98 / -715.98 -882.37 / -882.37 Lab / Micro Data Result Diagrams: 07/15/21 04:49 07/15/21 04:49 Labs: Laboratory Results - last 24 hr 07/13/21 08:04: Diff Path Review Reviewed 07/13/21 08:04: Magnesium 1.9 07/14/21 08:45: MRSA (PCR) Negative 07/15/21 04:49: WBC 13.2 H, RBC 3.34 L, Hgb 11.2 L, Hct 31.3 L, MCV 93.7, MCH 33.5 H, MCHC 35.8, RDW Std Deviation 40.6, RDW Coeff of Angy 11.9, Plt Count 362, MPV 10.3, Immature Gran % (Auto) 4.900 H, Neut % (Auto) 77.3 H, Lymph % (Auto) 6.5 L, [place] % (Auto) 8.3, Eos % (Auto) 2.3, Baso % (Auto) 0.7, Absolute Neuts (auto) 10.2 H, Absolute Lymphs (auto) 0.86, Nucleated RBC % 0 07/15/21 04:49: Sodium 133 L, Potassium 3.7, Chloride 100, Carbon Dioxide 26.0, Anion Gap 7, BUN 13, Creatinine 0.77, Estim Creat Clear Calc 60.83, Est GFR (MDRD) Af Amer 126, Est GFR (MDRD) Non-Af 104, BUN/Creatinine Ratio 17.0, Glucos e 107 H, Calcium 8.0 L Micro: Microbiology 07/13/21 11:40 Urine, Clean Catch Urine Culture - Preliminary Culture exhibits no growth. Cardiology Labs/Tests 07/13/21 08:04: Magnesium 1.9 07/15/21 04:49: WBC 13.2 H, RBC 3.34 L, Hgb 11.2 L, Hct 31.3 L, MCV 93.7, MCH 33.5 H, MCHC 35.8, Plt Count 362, MPV 10.3, Immature Gran % (Auto) 4.900 H, Neut % (Auto) 77.3 H, Lymph % (Auto) 6.5 L, [place] % (Auto) 8.3, Eos % (Auto) 2.3, Baso % (Auto) 0.7, Absolute Neuts (auto) 10.2 H, Nucleated RBC % 0 07/15/21 04:49: Sodium 133 L, Potassium 3.7, Chloride 100, Carbon Dioxide 26.0, Anion Gap 7, BUN 13, Creatinine 0.77, Est GFR (MDRD) Af Amer 126, Est GFR (MDRD) Non-Af 104, BUN/Creatinine Ratio 17.0, Glucose 107 H, Calcium 8.0 L Rhythm: Atrial fibrillation/flutter with rapid ventricular response with sub sequent spontaneous conversion to sinus rhythm EKG: Sinus rhythm/sinus arrhythmia with no acute ECG changes Physical Exam Const alert, oriented x3 and no apparent distress Orientation / Consciousness: awake HEENT normocephalic, head/scalp atraumatic and hearing grossly normal bilaterally Eyes PERRL and EOMs intact bilaterally Neck supple and no JVD Resp clear to auscultation bilaterally Cardio Rhythm: abnormal rhythm irregularly irregular Heart Sounds: S1 normal and S2 normal GI normal to inspection, nondistended, normoactive bowel sounds Extremity no pedal edema Skin no rashes or lesions noted Psych mental status grossly normal Assessment & Plan Assessment/Plan (1) Paroxysmal atrial fibrillation with RVR: PLAN: The patient has a history of paroxysmal atrial fibrillation. He has had recurrent atrial fibrillation/flutter status post his laparoscopic cholecystectomy. The patient was placed on additional medical therapy with IV amiodarone. At the time of his initial visit earlier this day he had remained in atrial fibrillation/flutter. At that time the plan was for JUSTO guided synchronized biphasic DC cardioversion. However, following the patient's visit the patient was noted to have spontaneous conversion to sinus rhythm. Thus at the present time the patient will continue rate limiting therapy, antiarrhythmic therapy-hopefully for a brief period of time as he recuperates from his recent noncardiac surgical procedure, and anticoagulant therapy. He will need continued outpatient cardiovascular follow-up. (2) Atherosclerotic heart disease of [place] coronary artery without angina pectoris: QUALIFIERS: [place] vs. transplanted heart: [place] heart Qualified Code(s): I25.10 - Atherosclerotic heart disease of [place] coronary artery without angina pectoris PLAN: The patient has a history of underlying CAD. He appears to be stable with no acute symptoms or adverse events. He will continue medical management. (3) History of coronary artery stent placement: PLAN: The patient has been reported as going through PCI in the past. At the moment he is without any acute coronary syndrome related symptoms. He will continue medical therapy. (4) Hyperlipidemia: QUALIFIERS: Hyperlipidemia type: pure hypercholesterolemia Qualified Code(s): E78.00 - Pure hypercholesterolemia, unspecified PLAN: The patient should continue risk factor evaluation care as deemed appropriate. (5) Essential (primary) hypertension: PLAN: The patient's blood pressure can be followed with his medicines adjusted as needed. (6) S/P laparoscopic cholecystectomy: PLAN: The patient will continue evaluation care per internal medicine and general surgery. Addt'l Comments This note was generated using a voice recognition system and there may be incorrect words, spelling or punctuation that were not noted when reviewing the office note prior to saving.
[2021-07-15] MEDS: Aspirin E.C. 81 MG Tablet PO (10:06)
[2021-07-15] MEDS: Multivitamins,Ther W-Minerals Tablet 1 TABLET PO (10:06)
--- NOTE | 2021-07-15 10:06 | CASEMGMT ---
Addendum entered by Susan Cosby 07/15/21 11:43: Dedra e-scribed to [facility] retail pharmacy and 30 day free trial card already applied and per tech, they cannot check co-pay at this time. Milena HOLLINGSWORTH CM Original Note: Pt/ requesting WW at discharge. This RN ASIA to room and pt/ state they would like WW script faxed to [facility] as pt's cpap is thru there. Pt/ decline need for any further therapy at discharge. Pt/ aware that they can f/u with PCP, if they decide pt needs therapy once home, voice understanding. Pt/ voice no further questions/concerns/needs. Script for WW obtained and faxed to [facility]. Milena HOLLINGSWORTH CM
[2021-07-15] MEDS: Metoprolol Tartrate 25 MG Tablet PO (10:07)
[2021-07-15] MEDS: Spironolactone 25 MG Tablet PO (10:07)
[2021-07-15] MEDS: Ascorbic Acid 500 MG Tablet PO (10:07)
[2021-07-15] MEDS: Fenofibrate 145 MG Tablet PO (10:07)
[2021-07-15] MEDS: Losartan Potassium 100 MG Tablet PO (10:07)
[2021-07-15] MEDS: Furosemide 20 MG Tablet PO (10:07)
[2021-07-15] MEDS: lamoTRIgine 25 MG Tablet PO (10:07)
[2021-07-15] MEDS: APIXABAN 5 MG TABLET PO (10:08)
[2021-07-15] MEDS: Sodium Chloride 0.65% 1 SPRAY SPRAY.BTL 2 SPRAY NASAL (10:08)
[2021-07-15] MEDS: Cholecalciferol (VIT D3) 25 MCG TABLET (1,000 UNITS) PO (10:08)
[2021-07-15] MEDS: Famotidine 20 MG Tablet PO (10:08)
[2021-07-15] MEDS: Amiodarone 200 MG Tablet PO (10:15)
[2021-07-15] MEDS: Lacosamide 50 MG Tablet 100 MG PO (10:57)
--- NOTE | 2021-07-15 13:01 | PN.HOSP_ITS ---
Subjective Subjective Patient states he is feeling well. He went down to have his JUSTO and cardioversion done and he converted into normal sinus rhythm after being wheeled into the door. He states he is feeling well and anxious to go home. I did discuss the case with Dr. Mckinney and he states he is made his medication adjustments and is cleared from his standpoint to leave. Objective Data Objective Data Vital Signs: Vital Signs Temp Pulse Resp BP Pulse Ox 98.2 F 72 22 H 129/74 H 100 07/15/21 10:58 07/15/21 10:58 07/15/21 10:58 07/15/21 10:58 07/15/21 10:58 Oxygen Flow Rate (L/min) 3 Oxygen Delivery Method Room Air Weight: 98.6 kg Body Mass Index (BMI) 29.5 Intake & Output: Intake and Output for Last 24 Hours 07/13/21 07/14/21 07/15/21 23:59 23:59 23:59 Intake Total 887 / 887 1279.02 / 1279.02 721.90 / 721.90 Output Total 700 / 1700 1300 / 1995 1195 / 1195 Balance 187 / -813 -20.98 / -715.98 -473.10 / -473.10 Lab / Micro Data Result Diagrams: 07/15/21 04:49 07/15/21 04:49 Labs: Laboratory Results - last 24 hr 07/13/21 08:04: Diff Path Review Reviewed 07/13/21 08:04: Magnesium 1.9 07/14/21 08:45: MRSA (PCR) Negative 07/15/21 04:49: WBC 13.2 H, RBC 3.34 L, Hgb 11.2 L, Hct 31.3 L, MCV 93.7, MCH 33.5 H, MCHC 35.8, RDW Std Deviation 40.6, RDW Coeff of Angy 11.9, Plt Count 362, MPV 10.3, Immature Gran % (Auto) 4.900 H, Neut % (Auto) 77.3 H, Lymph % (Auto) 6.5 L, Pennington % (Auto) 8.3, Eos % (Auto) 2.3, Baso % (Auto) 0.7, Absolute Neuts (auto) 10.2 H, Absolute Lymphs (auto) 0.86, Nucleated RBC % 0 07/15/21 04:49: Sodium 133 L, Potassium 3.7, Chloride 100, Carbon Dioxide 26.0, Anion Gap 7, BUN 13, Creatinine 0.77, Estim Creat Clear Calc 60.83, Est GFR (MDRD) Af Amer 126, Est GFR (MDRD) Non-Af 104, BUN/Creatinine Ratio 17.0, Glucose 107 H, Calcium 8.0 L Micro: Microbiology 07/13/21 11:40 Urine, Clean Catch Urine Culture - Preliminary Culture exhibits no growth. Physical Exam Const alert, oriented x3 and no apparent distress Constitutional Narrative: Older white male who appears younger than stated age, sitting up in bed, significant other is at bedside, patient appears comfortable in no signs of dyspnea, nontoxic Exam Limitations: no limitations Nutritional Appearance: obese HEENT normocephalic, head/scalp atraumatic and moist oral mucous membranes Head and Scalp: normocephalic Eyes Eyes Narrative: Resp normal respiratory effort, no retractions, no use of accessory muscles and clear to auscultation bilaterally Auscultation: crackles; Negative for rales, rhonchi or wheezes Cardio regular rate, regular rhythm, S1 normal heart sound, S2 normal heart sound, no murmurs, no rub, no gallops, no clicks and no JVD GI soft to palpation, non-tender and non-distended GI Narrative: Well-healing incisions, bowel sounds are normal Extremity Extremity Narrative: Trace bilateral lower extremity edema that is pitting in nature, no cyanosis or clubbing Peripheral Pulses: Yes pulses 2+ throughout Neuro oriented x3, moves all extremities, no focal motor deficits and no sensory deficits noted Sensorium / Orientation: awake and alert Speech: speech normal Assessment & Plan Assessment/Plan (1) Hypokalemia: (2) Hypophosphatemia: (3) Paroxysmal atrial fibrillation with RVR: (4) Acute cholecystitis: (5) S/P laparoscopic cholecystectomy: (6) Hyponatremia: PLAN: Acute cholecystitis with cholelithiasis -Patient was taken to the OR on 07/09/2021 where the patient was found to have acute gangrenous cholecystitis -Patient with flatus and bowel movement overnight -Patient tolerating cardiac carb controlled diet without any issues -General surgery is primary Postoperative ileus -Resolved Paroxysmal atrial flutter/fibrillation with RVR -Spontaneously converted -amio taper initiated -Continue Eliquis -Continue metoprolol as ordered -Echocardiogram is overall unimpressive -ok for discharge home--> d/w Dr. Rodriguez and med rec updated Leukocytosis -stable -No signs of infection -Pro-Jose Angel is only 0.22 Acute anemia -Related to acute hospitalization -No signs of acute bleeding -Continue to monitor Hyponatremia -Suspect hypervolemic hyponatremia -stable -Continue home Lasix History of seizure disorder -Patient follows with Dr. Borrero as an outpatient and in the process of down titration of Vimpat after the initiation of Lamictal -We will convert IV Vimpat to oral--> patient will continue on Vimpat 100 mg p.o. twice daily on discharge and we are weaning Lamictal over 7 days -Last day for Lamictal is 07/17/2021 CAD -History of stent to the mid RCA in 2012 -Stress test done in August 2017 that was negative for inducible ischemia -Continue baseline medications as able CKD stage II -Patient has chronic proteinuria -Follows with Dr. Carter -Patient is on losartan at baseline Hypertension -Continue home oral medications as able Hyperlipidemia -Continue home simvastatin as able DVT prophylaxis -Continue SCDs -Eliquis CODE STATUS -Full code Charges/Coding Visit Charges Inpatient E&M: 66373 Subs Hosp L2
== END 2021-07-15 12:53 | disposition home or self-care (01) | DRG 418 ==
LOC: ED 09:59 → SDC 10:01 → AC 10:02 → SDC 13:55 → PCU 13:55
PROVIDERS: Internal Medicine; Admitting Provider Surgery; Emergency Provider Emergency Medicine; PCP Internal Medicine; Visit Provider Internal Medicine
PROC: 0FT44ZZ Resection of Gallbladder, Percutaneous Endoscopic Approach (ICD-10-PCS; CPT 47610; principal; 2021-07-09 15:40)
DX: K80.00 Calculus of gallbladder with acute cholecystitis without obstruction (principal); I48.92 Unspecified atrial flutter; E87.1 Hypo-osmolality and hyponatremia; K56.7 Ileus, unspecified; E83.39 Other disorders of phosphorus metabolism; K82.A1 Gangrene of gallbladder in cholecystitis; G40.909 Epilepsy, unspecified, not intractable, without status epilepticus; I48.0 Paroxysmal atrial fibrillation; E78.5 Hyperlipidemia, unspecified; I10 Essential (primary) hypertension; I25.10 Atherosclerotic heart disease of native coronary artery without angina pectoris; I12.9 Hypertensive chronic kidney disease with stage 1 through stage 4 chronic kidney disease, or unspecified chronic kidney disease; N18.2 Chronic kidney disease, stage 2 (mild); E87.6 Hypokalemia; I08.1 Rheumatic disorders of both mitral and tricuspid valves; N40.0 Benign prostatic hyperplasia without lower urinary tract symptoms; G47.33 Obstructive sleep apnea (adult) (pediatric); F17.220 Nicotine dependence, chewing tobacco, uncomplicated; R80.9 Proteinuria, unspecified; Z79.82 Long term (current) use of aspirin; Z79.01 Long term (current) use of anticoagulants; E66.9 Obesity, unspecified; Z95.5 Presence of coronary angioplasty implant and graft; Z68.29 Body mass index [BMI] 29.0-29.9, adult
CPT/HCPCS: 36415; 70450; 71045; 74176; 74177; 76705; 80048; 80053; 80061; 81001; 83690; 83735; 83880; 84100; 84145; 84443; 84484; 85025; 87086; 87426; 87641; 88304; 93005; 93306; 94640; 96360; 97110; 97116; 97162; 97166; 97530; 97535; 99251; 99281; 99282; 99285; J7030; J7040; J7050; Q9957; Q9967; A4216; C8929; C9254; G0463; J1940; J2405; J3490

== ENCOUNTER 2021-07-30 14:19 | Outpatient (CLI) | payer MEDICARE, SELFPAY ==
--- NOTE | 2021-07-30 14:21 | US_ITS ---
History: ABN CT EXAMINATION: US Kidney(s) complete (eg, kidneys and bladder) TECHNIQUE: Gil scale and color doppler images were obtained of the kidneys. COMPARISON: None FINDINGS: RIGHT KIDNEY: 13.5 cm in length. 2.6 cm solid mass noted within the upper pole of the right kidney. No hydronephrosis or renal calcification. LEFT KIDNEY: 12.3 cm in length. No focal parenchymal mass, hydronephrosis, nephrolithiasis, or perinephric fluid collection is noted. 4.2 and 1.0 cm left renal cyst. URINARY BLADDER: TURP defect noted along the base of the urinary bladder. US/Kidney and Bladder IMPRESSION: 2.6 cm solid right renal mass within the upper pole suggestive of renal cell carcinoma. at 1547 Reported and signed by: Marco Rojas MD Electronically Signed: Marco Rojas MD at 15:46 EST ,
== END 2021-07-30 23:59 | disposition home or self-care (01) ==
LOC: US 14:19
PROVIDERS: PCP Internal Medicine; Referring Provider Internal Medicine; Visit Provider Internal Medicine
DX: R93.5 Abnormal findings on diagnostic imaging of other abdominal regions, including retroperitoneum (principal)
CPT/HCPCS: 76770

== ENCOUNTER → 2021-10-09 | Outpatient (CLI) | payer MEDICARE, SELFPAY ==
[2021-10-09 15:44] LABS: Anion Gap 7 (5-15); BUN 23 mg/dL (7-18); BUN/Creat Ratio 16.2 RATIO (10-20); Calcium,Total 9.1 mg/dL (8.5-10.1); Chloride 96 mmol/L (98-107); Creatinine, Serum 1.42 mg/dL (0.70-1.30); EST Glomerular Filtration Rate 51 mL/min (>60); Est Glom Filt Rate - Afr Amer 62 mL/min (>60); Glucose 106 mg/dL (74-106); Potassium 5.2 mmol/L (3.5-5.1); Sodium Level 130 mmol/L (136-145)
[2021-10-12 21:45] LABS: Lamotrigine (Lamictal) Level 2.9 ug/mL (2.0-20.0)
== END | disposition home or self-care (01) ==
LOC: MTLAB 11:19
PROVIDERS: PCP Internal Medicine; Referring Provider Nurse Practitioner Family; Visit Provider Nurse Practitioner Family
DX: G40.909 Epilepsy, unspecified, not intractable, without status epilepticus (principal)
CPT/HCPCS: 36415; 80048; 82140; 82542

== ENCOUNTER → 2021-10-22 | Outpatient (CLI) | payer MEDICARE, SELFPAY ==
--- NOTE | 2021-10-22 18:54 | STRESSREP_ITS ---
Stress Test Report Pharmacologic myocardial perfusion stress test. 81-year-old male with a history of coronary artery disease. Stress protocol: Resting KG demonstrates sinus bradycardia with a rate of 46 bpm normal intervals are noted resting blood pressure is 158/80 mmHg. 0.4 mg of regadenoson was infused per usual protocol followed byIntravenous saline flush injection continuous EKG monitoring was performed. The maximum heart rate attained was 76 bpm which was 54% of max impacted heart rate the maximum workload was 1 metabolic equivalent. At rest there were no ST or T wave changes noted to suggest abnormal flow reserve and a peak infusion nonspecific ST changes were noted. No clinical angina was noted. The test was terminated because of completion of the infusion. Myocardial perfusion protocol. 14.7 mCi of technetium 99m sestamibi was injected at rest. 0.4 mg of regadenoson was infused per usual protocol. At peak infusion 44.5 mCi of lupe hnetium 99m sestamibi was injected stress images were obtained stress and rest images were reconstructed and compared in the short axis vertical long and horizontal long axis. Gated images were also obtained for Perfusion SPECT analysis: Review of the stress images demonstrate normal uptake of tracer noted in all areas of the myocardium. The resting images similar demonstrate normal uptake of tracer noted in all areas of the myocardium. No areas of reversibility are noted to suggest ischemia no previous infarct is noted. Gated SPECT analysis: The gated ejection fraction is 69%. Conclusion: Normal pharmacologic myocardial perfusion stress test. Preserved ejection fraction.
== END | disposition home or self-care (01) ==
PROVIDERS: PCP Internal Medicine; Visit Provider Internal Medicine Cardiovascular Disease
DX: I25.10 Atherosclerotic heart disease of native coronary artery without angina pectoris (principal); Z95.5 Presence of coronary angioplasty implant and graft
CPT/HCPCS: 78452; 93017; A9500; A4216; J2785

== ENCOUNTER 2021-11-18 11:30 | Outpatient (RCR) | payer MEDICARE, SELFPAY ==
--- NOTE | 2021-07-27 13:45 | HP.PTEVAL_ITS ---
Patient's Visit Information DEX BAEZ is a 80 year old M referred to Physical Therapy by Dr. Brittany Combs MD with a diagnosis of Weakness. Date of Evaluation: 07/27/21 Physical Therapist: Nadia Rodriguez DPT - Visit Plan Frequency: 2x /Week Duration: 4 Weeks Plan: Focus on LE and core strength/stabilization, proprioception, and functional mobility (Strength, Balance and Endurance). HEP Given IE: Standing HR/TR, marching, hip abduction and extension - Subjective Patient reports week in hospital, old age and medication for seizures. It was hospital stay that threw him over the edge- he went home about a week ago. Fully I prior to admission. Two story home with handrails- lives with who helps as needed. He has been using a FWW since he was d/c from the hospital- without the walker he was doing more furniture walking. He does have access to cane and can bring next time. No pain just weakness and off balance. One leg is not weaker than the other- he has not fallen since he has been home. Normally if he falls he trips on something but doesn't feel like its getting worse- he is more conscious of his now. He has not driven since the hospital but plans to try to get back to it. Last seizure was a few years ago- controlled with the medication. Sleep: is not disturbed. Goals: balance, strength and endurance. PMHx/Meds: no changes since he was at the hospital. - Objective Posture: FH, RS- can correct with verbal and tactile cues but does not maintain. Gait: decreased pratik with FWW. Much improved with straight cane in right hand. HR/TR: able with UE A- reports mild discomfort in right great toe. SLS: weight shift but unable to SLS without UE A. Stairs: asc/desc 8 recip with 2 HR. ROM: WFL in all planes. Sensation: WFL. Strength: Core: fair, Hip: 4/5 throughout Knee: 4+/5, Ankle: 4+/5 throughout. Flex: HS: severe, Gastroc: severe - Balance/Special Test Scores Functional Gait Assessment Score: 14 % Disability: 53.3400 Lower Extremity Functional Score: 17 - Goals Goal 1:: Patient will be I with HEP and progression Goal Time Frame: 4-6 Weeks Goal 2:: Patient will ambulate >300 feet with a normalized gait pattern and LRD Goal Time Frame: 4-6 Weeks Goal 3:: Patient will asc/desc 8 recip with 1 HR and good technqiue Goal Time Frame: 4-6 Weeks Goal 4:: Patient will improve his FGA within functional limits for his age Goal Time Frame: 4-6 Weeks Goal 5:: Patient will 4+/5 in LE where deficit Goal Time Frame: 4-6 Weeks Goal 6:: Patient will maintain proper posture t/o tx session to demo increased core strength/stabilization Goal Time Frame: 4-6 Weeks - Rehabilitation Potential Physical Therapy Diagnosis: Patient presents with hypomobility- he has decreased LE and core strength/stabilization, proprioception and muscular endurance leading to poor posture and decreased ability to perform ADL's. Rehabilitation Potential: Fair - Anticipated Interventions Patient/Client Instruction: Educate patient on: Benefits of Fitness Program Therapeutic Exercise to Include: Strength training, Power training, Balance training, Coordination, Agility training, Body mechanics, Postural training, Flexibilty training, Gait and locomotor training, Neuromotor development, Dynamic Lumbar Stabilization, Scapular Strength/Stabilization For the Purpose of:: To improve muscle performance and motor function Functional Training to Include: Gait training Thank you for the opportunity to evaluate your patient. For Medicare and Medicare HMO plans, please review the plan of care and approve it. It will need to be FAXED BACK to us at [phone] for Medicare purposes. For Medicare only, by signing this I certify the plan of care. Please let me know if there are questions or concerns regarding this plan of care. Physician Signature: Date:
--- NOTE | 2021-08-24 14:42 | HP.PTREVAL ---
Dr. Brittany Combs MD, It has been my pleasure to treat DEX BAEZ over the last 9 visits for Weakness. Please see the progress note below for an update on the physical therapy plan of care! Subjective: Patient reports that he is making progress but is not where he was prior to admission. He feels like he has good days and bad days. He would like to be able to get back on his mowers- does not feel totally comfortable on it. He also likes to get out on uneven ground. He feels that his balance and strength are still an issues. Around the house he is not using a cane but he brought it today. The doctors are still working on his blood pressure- has been constant throughout the years. Objective/Function: Posture: FH, RS- can correct with verbal and tactile cues but does not maintain. Gait: posterior pelvic tilt- mild decreased pratik single point cane- can ambulate without cane HR/TR: able with UE A SLS: 3-5 sec. Stairs: asc/desc 8 recip with 1 HR and straigh cane ROM: WFL in all planes. Sensation: WFL. Strength: Core: fair, Hip: 4+/5 throughout Knee: 4+/5, Ankle: 4+/5 throughout. Flex: HS: severe, Gastroc: severe Plan Plan: Focus on LE and core strength/stabilization, proprioception, and functional mobility (Strength, Balance and Endurance) Balance/Gait/Functional tests - Balance/Special Test Scores Functional Gait Assessment Score: 14 % Disability: 53.3400 Lower Extremity Functional Score: 17 TUG Test Time Seconds: 9.8 Tug Test: <10 sec.=free mobile Goals Goal 1:: Patient will be I with HEP and progression Goal Time Frame: 4-6 Weeks Goal 2:: Patient will ambulate >300 feet with a normalized gait pattern and LRD Goal Time Frame: 4-6 Weeks Goal 3:: Patient will asc/desc 8 recip with 1 HR and good technqiue Goal Time Frame: 4-6 Weeks Goal 4:: Patient will improve his FGA within functional limits for his age Goal Time Frame: 4-6 Weeks Goal 5:: Patient will 4+/5 in LE where deficit Goal Time Frame: 4-6 Weeks Goal 6:: Patient will maintain proper posture t/o tx session to demo increased core strength/stabilization Goal Time Frame: 4-6 Weeks Anticipated Interventions Patient/Client Instruction: Educate patient on: Benefits of Fitness Program Therapeutic Exercise to Include: Strength training, Power training, Balance training, Coordination, Agility training, Body mechanics, Postural training, Flexibilty training, Gait and locomotor training, Neuromotor development, Dynamic Lumbar Stabilization, Scapular Strength/Stabilization For the Purpose of:: To improve muscle performance and motor function Functional Training to Include: Gait training Please do not hesitate to contact me at [phone] by phone or if you have questions or concerns regarding this new plan of care! Sincerely, Nadia Rodriguez DPT
--- NOTE | 2021-09-24 13:20 | HP.PTREVAL_ITS ---
Dr. Brittany Combs MD, It has been my pleasure to treat DEX BAEZ over the last 18 visits for Weakness. Please see the progress note below for an update on the physical therapy plan of care! Subjective: Patient reports that he is much improved since re-eval. He is still walking slowly on uneven surfaces but he is able to get there- get on the trac tor and mow grass. Still has some back pain on the left due to picking up a mower last week. Does not use his straight cane at home but does use on uneven surfaces. Objective/Function: Posture: FH, RS- can correct with verbal and tactile cues but does not maintain. Gait: Improved pratik- HR/TR: able with UE A SLS: 3-5 sec. Stairs: asc/desc 8 recip with 1 HR and straight cane ROM: WFL in all planes. Sensation: WFL. Strength: Core: fair, Hip: 4+/5 throughout Knee: 4+/5, Ankle: 4+/5 throughout. Flex: HS: severe, Gastroc: severe Plan Plan: 09/24/21: Add in walking on uneven surfaces and getting up from the floor. Focus on LE and core strength/stabilization, proprioception, and functional mobility (Strength, Balance and Endurance) Balance/Gait/Functional tests - Balance/Special Test Scores Functional Gait Assessment Score: 14 % Disability: 53.3400 Lower Extremity Functional Score: 17 TUG Test Time Seconds: 9.8 Tug Test: <10 sec.=free mobile Goals Goal 1:: Patient will be I with HEP and progression Goal Time Frame: 4-6 Weeks Goal Progress: Progressing Goal 2:: Patient will ambulate >300 feet with a normalized gait pattern and LRD Goal Time Frame: 4-6 Weeks Goal Progress: Goal Met Goal 3:: Patient will asc/desc 8 recip with 1 HR and good technqiue Goal Time Frame: 4-6 Weeks Goal Progress: Progressing Goal 4:: Patient will improve his FGA within functional limits for his age Goal Time Frame: 4-6 Weeks Goal Progress: Progressing Goal 5:: Patient will get up from the floor without A Goal Time Frame: 4-6 Weeks Goal 6:: Patient will ambulate >300 feet on uneven surfaces without LOB and no AD Goal Time Frame: 4-6 Weeks Anticipated Interventions Patient/Client Instruction: Educate patient on: Benefits of Fitness Program Therapeutic Exercise to Include: Strength training, Power training, Balance training, Coordination, Agility training, Body mechanics, Postural training, Flexibilty training, Gait and locomotor training, Neuromotor development, Dynamic Lumbar Stabilization, Scapular Strength/Stabilization For the Purpose of:: To improve muscle performance and motor function Functional Training to Include: Gait training Please do not hesitate to contact me at [phone] by phone or if you have questions or concerns regarding this new plan of care! Sincerely, MISAEL ChaconT
--- NOTE | 2021-11-18 14:08 | HP.PTDCSUM_ITS ---
It has been my pleasure to treat DEX BAEZ referred by Dr. Brittany Combs MD, with the diagnosis of Weakness for a total of 32 visit(s). Discharge Date: Please see the following information for a summary of their discharge status. Subjective: PATIENT REPORTS STAMINA AND BALANCE ARE STILL AN ISSUE FOR HIM. HE FEELS THESE ISSUES ARE GETTING BETTER. NO FALLS. USES WALKING STICK/CANE OUTSIDE. NO AD INSIDE. AVOIDS QUICK TURNS SO HE DOESN'T LOOSE HIS BALANCE. REPORTS HE CAN GET UP FROM THE FLOOR BY HIMSELF NOW LONG HE HAS HIS WALKING STICK OR SOMETHING ELSE TO HELP HIM UP. Left Knee Pain Intensity (Out of 10): 0 Left Great Toe Pain Intensity (Out of 10): 0 % Improvement: 80 Objective/Function: PATIENT WAS SEEN TODAY FOR RE-ASSESSMENT OF PROGRESS TOWARD THE SET PT GOALS AND THE NEED FOR FURTHER PHYSICAL THERAPY VS READINESS FOR DISCHARGE. PATIENT IS INDEP WITH A GYM EX PROGRAM AND APPROPRIATE FOR TRIAL OF D/C TO INDEP GYM PROGRAM. HE PLANS TO GO TO THE [facility] WITH HIS . HE IS STILL A FALL RISK. CANE RECOMMENDED WHEN OUT OF HOME AND PATIENT AGREEABLE. UPON EXAM TODAY: THIS PATIENT AMBULATES WITH WIDE LORENA AND DECREASED GAGANDEEP STRIDE LENGTH. WITH MULTIPLE ATTEMPS AT SLS WITHOUT UE ASSIST HIS BEST TIME IS 4 SEC ON RIGHT LE AND 3 SEC ON LLE. HE IS ABLE TO ASCEND AND DESCEND STAIRS RECIP WITH ONE HR. LIGHT HR ASCENDING AND MOD HR ASSSIT DESCENDING. Strength: Core: fair, Hip: 4+/5 throughout Knee: 4+/5, Ankle: 4+/5 throughout. Flex: HS: severe, Gastroc: severe. Goal 1:: Patient will be I with HEP and progression Goal Progress: Goal Met Goal 2:: Patient will ambulate >300 feet with a normalized gait pattern and LRD Goal Progress: Goal Met Goal 3:: Patient will asc/desc 8 recip with 1 HR and good technqiue Goal Progress: Progressing Goal 4:: Patient will improve his FGA within functional limits for his age Goal Progress: Progressing Goal 5:: Patient will get up from the floor without A Goal Progress: Progressing Goal 6:: Patient will ambulate >300 feet on uneven surfaces without LOB and no AD Goal Progress: Progressing Plan: D/C TO INDEP EX PROGRAM. PATIENT AGREEABLE. If there are questions or concerns regarding this patient's physical therapy, please feel free to call me at [phone]. Thank you for the referral of this patient. Sincerely, Cheryl Valle, PT, Cert MDT Balance/Gait/Functional tests - Balance/Special Test Scores Functional Gait Assessment Score: 14 % Disability: 53.3400 Lower Extremity Functional Score: 39 TUG Test Time Seconds: 9.8 Tug Test: <10 sec.=free mobile
== END 2021-11-18 14:33 | disposition home or self-care (01) ==
LOC: PT 11:30
PROVIDERS: PCP Internal Medicine; Referring Provider Internal Medicine; Visit Provider Internal Medicine
DX: R53.1 Weakness (principal); K91.5 Postcholecystectomy syndrome
CPT/HCPCS: 97110; 97162; 97164; 97530

== ENCOUNTER → 2022-01-29 | Outpatient (CLI) | payer MEDICARE, SELFPAY ==
--- NOTE | 2022-01-29 11:53 | US_ITS ---
STUDY: RENAL ULTRASOUND - COMPLETE REASON FOR EXAM: Male, 81 years old. F/U KIDNEY TUMOR . Prior TURP. TECHNIQUE: Ultrasound evaluation of the kidneys was performed with real-time and static licona-scale imaging. COMPARISON: Comparison is made with prior examination of 07/30/2021. FINDINGS: RIGHT KIDNEY: Normal location of the right kidney, which is normal in size. The right kidney measures 13.7 cm x 6.4 cm x 7.1 cm. There is a normal cortex of the right kidney. The renal cortex measures 2.6 cm. There is a 3.7 cm x 2.3 cm x 2.1 cm heterogeneous solid mass in the upper pole. This is unchanged. There are no right renal calculi. There is no right hydronephrosis. DISTAL RIGHT URETER: There is non-visualization of the distal right ureter. There is no demonstrated right ureterovesical junction calculus. There is a visualized right ureteral jet. LEFT KIDNEY: Normal location of the left kidney, which is normal in size. The left kidney measures 12.4 cm x 5.8 cm x 6.2 cm. There is a normal cortex of the left kidney. The renal cortex measures 1.5 cm. 2 renal cysts are seen. The larger measures 4.2 cm x 3.6 cm x 4.1 cm. There are no left renal calculi. There is no left hydronephrosis. DISTAL LEFT URETER: There is non-visualization of the distal left ureter. There is no demonstrated left ureterovesical junction calculus. There is a visualized left ureteral jet. BLADDER: The distended urinary bladder has a volume of 151 ml. There is a normal wall thickness of the distended urinary bladder. There is no demonstrated mass within the urinary bladder. There are no demonstrated bladder calculi. US/Kidney and Bladder IMPRESSION: Persistent mass in the upper pole of the right kidney. Left renal cysts. Electronically Signed: Dima Eckert MD at 12:57 EDT ,
== END | disposition home or self-care (01) ==
PROVIDERS: PCP Internal Medicine; Referring Provider Internal Medicine; Visit Provider Internal Medicine
DX: D49.519 Neoplasm of unspecified behavior of unspecified kidney (principal)
CPT/HCPCS: 76770

== ENCOUNTER → 2022-02-08 | Outpatient (CLI) | payer MEDICARE, SELFPAY ==
[2022-02-10 15:01] LABS: Lamotrigine (Lamictal) Level 2.6 ug/mL (2.0-20.0)
== END | disposition home or self-care (01) ==
LOC: MTLAB 08:18
PROVIDERS: PCP Internal Medicine; Referring Provider Nurse Practitioner Family; Visit Provider Nurse Practitioner Family
DX: G40.909 Epilepsy, unspecified, not intractable, without status epilepticus (principal)
CPT/HCPCS: 36415; 82542

== ENCOUNTER → 2022-06-25 | Outpatient (CLI) | payer MEDICARE, SELFPAY | END | disposition home or self-care (01) | PROVIDERS: PCP Internal Medicine; Referring Provider Internal Medicine Cardiovascular Disease; Visit Provider Internal Medicine Cardiovascular Disease | DX: R00.1 Bradycardia, unspecified (principal); I48.0 Paroxysmal atrial fibrillation; I10 Essential (primary) hypertension; E78.00 Pure hypercholesterolemia, unspecified | CPT/HCPCS: 93225; 93226 ==

== ENCOUNTER → 2022-08-02 | Outpatient (CLI) | payer MEDICARE, SELFPAY ==
[2022-08-04 20:35] LABS: Lamotrigine (Lamictal) Level 2.6 ug/mL (2.0-20.0)
== END | disposition home or self-care (01) ==
PROVIDERS: PCP Internal Medicine; Referring Provider Psychiatry & Neurology Neurology; Visit Provider Psychiatry & Neurology Neurology
DX: G40.909 Epilepsy, unspecified, not intractable, without status epilepticus (principal)
CPT/HCPCS: 82140; 82542

== ENCOUNTER → 2022-08-17 | Outpatient (CLI) | payer MEDICARE, SELFPAY ==
[2022-08-17 07:57] VITALS: BP 159/89; PULSE 58; RESP 16; TEMP 36.1; O2SAT 98; BMI 29.4
[2022-08-17] MEDS: Cosyntropin 0.25 MG Vial IM (08:02)
[2022-08-17 09:09] VITALS: BP 169/80; PULSE 50; RESP 14; TEMP 36.1; O2SAT 98
[2022-08-18 09:43] LABS: Anion Gap 6 (5-15); BUN 21 mg/dL (7-18); BUN/Creat Ratio 19.3 RATIO (10-20); Calcium,Total 9.3 mg/dL (8.5-10.1); Chloride 105 mmol/L (98-107); Creatinine, Serum 1.09 mg/dL (0.70-1.30); EST Glomerular Filtration Rate 69 mL/min (>60); Est Glom Filt Rate - Afr Amer 83 mL/min (>60); Estimated Creatinine Clearance 54.88 ml/min; Glucose 117 mg/dL (74-106); Potassium 4.8 mmol/L (3.5-5.1); Sodium Level 139 mmol/L (136-145)
== END | disposition home or self-care (01) ==
LOC: MEDOUTP 07:48
PROVIDERS: PCP Internal Medicine; Referring Provider Internal Medicine; Visit Provider Internal Medicine
DX: E87.1 Hypo-osmolality and hyponatremia (principal); E87.5 Hyperkalemia
CPT/HCPCS: 36415; 80048; 82533; 96372; J0834

== ENCOUNTER → 2022-08-23 | Outpatient (CLI) | payer MEDICARE, SELFPAY ==
[2022-08-23 08:32] LABS: Sodium Level 137 mmol/L (136-145)
[2022-08-23 08:34] LABS: Urine Sodium 133 mmol/L (Not Establ.)
[2022-08-23 08:47] LABS: Osmolality, Urine 348 mOsm/KG
[2022-08-23 08:47] LABS: Osmolality, Serum 293 mOsm/KG (280-301)
== END | disposition home or self-care (01) ==
LOC: PAVLAB 07:51
PROVIDERS: PCP Internal Medicine; Referring Provider Internal Medicine; Visit Provider Internal Medicine
DX: E78.00 Pure hypercholesterolemia, unspecified (principal); E87.1 Hypo-osmolality and hyponatremia
CPT/HCPCS: 83930; 83935; 84295; 84300

== ENCOUNTER → 2022-11-18 | Outpatient (CLI) | payer MEDICARE, SELFPAY ==
--- NOTE | 2022-11-18 14:25 | CT_ITS ---
STUDY: CT ABDOMEN AND PELVIS WITH AND WITHOUT CONTRAST REASON FOR EXAM: Male, 82 years old. KIDNEY NEOPLASM RADIATION DOSAGE (If Supplied By Facility): CTDIvol = ( 19.81 ) mGy, DLP = ( 2883.05 ) mGycm TECHNIQUE: Transaxial images were obtained from the dome of the diaphragm to the symphysis pubis without oral contrast. IV 100mL Isovue-300 was administered. Sagittal and coronal images were reconstructed. Individualized dose optimization techniques were used for this CT. COMPARISON: 07/09/2021 FINDINGS: The visualized lung bases are unremarkable. The visualized portions of the heart are within normal limits. Stable simple cyst of the left hepatic lobe. No required imaging follow-up needed given high likelihood of benign nature. There are surgical clips in the gallbladder fossa consistent with a prior cholecystectomy. Normal spleen. Normal pancreas. Normal bilateral adrenal glands. There are well marginated nonenhancing cysts of the bilateral kidneys, stable since the prior CT. None of the lesions demonstrate contrast enhancement. There is intermediate to slightly hyperdense lesion in the superior left kidney measuring 1.6 cm, unchanged when compared [id number] to the prior exam (Bosniak 2). Enhancing mass of the upper lateral right kidney measuring 2.0 x 2.2 cm has not changed when compared [id number] to the prior study, accounting for variation in technique (no IV contrast from prior exam). The right renal vein is patent. Normal visualized stomach. No dilated loops of small bowel. There are multiple colonic diverticula consistent with diverticulosis. There is non-visualization of the appendix. There is diffuse atherosclerotic calcification of the abdominal aorta, without a demonstrated aneurysm. Normal inferior vena cava. Normal retroperitoneum. Normal urinary bladder. There is a left-sided inguinal hernia containing adipose tissue. There are diffuse degenerative changes of the visualized lumbar spine. CT/CT Abd/Pelvis W/WO Contrast IMPRESSION: 1. Since 07/09/2021, stable exam. Enhancing solid mass of the upper right kidney is stable, still suspicious for neoplasm. 2. No retroperitoneal adenopathy. Electronically Signed: Ashutosh Birch ([place]), at 20:09 EDT ,
[2022-11-18 14:57] LABS: CREATININE FINGERSTICK 0.9 mg/dL (0.70-1.30); EGFR FINGERSTICK > 60.0000 mL/min (>60)
== END | disposition home or self-care (01) ==
LOC: CT 14:23
PROVIDERS: PCP Internal Medicine; Referring Provider Urology; Visit Provider Urology
DX: D41.01 Neoplasm of uncertain behavior of right kidney (principal)
CPT/HCPCS: 74178; Q9967

== ENCOUNTER → 2023-01-24 | Outpatient (CLI) | payer MEDICARE, SELFPAY ==
[2023-01-25 17:07] LABS: Lamotrigine (Lamictal) Level 2.7 ug/mL (2.0-20.0)
== END | disposition home or self-care (01) ==
PROVIDERS: PCP Internal Medicine; Referring Provider Psychiatry & Neurology Neurology; Visit Provider Psychiatry & Neurology Neurology
DX: G40.909 Epilepsy, unspecified, not intractable, without status epilepticus (principal)
CPT/HCPCS: 36415; 82140; 82542

== ENCOUNTER → 2023-07-21 | Outpatient (CLI) | payer MEDICARE, SELFPAY ==
--- NOTE | 2023-07-21 13:30 | BD_ITS ---
STUDY: DUAL ENERGY X-RAY ABSORPTIOMETRY / DXA REASON FOR EXAM: Male, 82 years old. M810 TECHNIQUE: Bone Mineral Density (BMD) measurements of lumbar spine and bilateral hips were obtained. COMPARISON: None. FINDINGS: Lumbar Spine (L1-L4): g/cm2 (1.368) / T-score (2.5) / Z-score (3.8) Findings are suggestive of normal bone density with a low fracture risk. Left Femur Total: g/cm2 (1.192) / T-score (1.1) / Z-score (2.2) Left Femoral Neck: g/cm2 (0.987) / T-score (0.4) / Z-score (2.0) Right Femur Total: g/cm2 (1.220) / T-score (1.2) / Z-score (2.4) Right Femoral Neck: g/cm2 (0.972) / T-score (0.3) / Z-score (1.9) BD/Dexa Bone Density Study IMPRESSION: The patient is considered normal as outlined below according to [employer] (WHO) criteria with a low fracture risk. Reference Information: The T-score is the number of standard deviations above or below the standard which is normal for young adults at their peak bone mineral density. The World Health Organization (WHO) interprets the T-scores as follows: Above -1 Normal bone density Between -1 and -2.5 Osteopenia Equal to / or below -2.5 Osteoporosis As a practical clinical guideline, osteopenia may be graded as follows: Mild -1 through -1.5 Moderate -1.6 through -2.0 Severe -2.1 through -2.4 The Z-score is the number of standard deviations above or below age-matched controls. A Z-score of less than -1.5 would be considered abnormal. References: 1. NIH Osteoporosis and Related Bone Diseases www osteo.org 2. International Society for Clinical Densitometry www iscd.org 3. National Osteoporosis Foundation www nof.org Electronically Signed: Dima Eckert MD at 9:14 EST ,
== END | disposition home or self-care (01) ==
LOC: OPBD 13:21
PROVIDERS: PCP Internal Medicine; Referring Provider Internal Medicine; Visit Provider Internal Medicine
DX: M81.0 Age-related osteoporosis without current pathological fracture (principal); Z91.89 Other specified personal risk factors, not elsewhere classified
CPT/HCPCS: 77080

== ENCOUNTER → 2023-07-27 | Outpatient (CLI) | payer MEDICARE, SELFPAY ==
--- NOTE | 2023-07-27 14:09 | CT_ITS ---
STUDY: CT ABDOMEN AND PELVIS WITH CONTRAST REASON FOR EXAM: Male, 82 years old. Flank pain, known renal neoplasm RADIATION DOSAGE (If Supplied By Facility): CTDIvol = ( 17.31 ) mGy, DLP = ( 1178.79 ) mGycm TECHNIQUE: Transaxial images were obtained from the dome of the diaphragm to the symphysis pubis without oral contrast. IV 100mL Isovue-300 was administered. Sagittal and coronal images were reconstructed. Individualized dose optimization techniques were used for this CT. COMPARISON: 11/18/2022 FINDINGS: The visualized lung bases are unremarkable. The visualized portions of the heart are within normal limits. Mild fatty infiltration of the liver is noted with stable benign appearing simple cysts. No discrete enhancing lesion. There are surgical clips in the gallbladder fossa consistent with a prior cholecystectomy. Normal spleen. Normal pancreas. Normal bilateral adrenal glands. Stable 2 x 2.2 cm enhancing solid lesion within the upper pole of the right kidney. Neoplasm is again suspected but it is unchanged compared to previous studies. Stable bilateral renal cysts unchanged dating back to 07/09/2021, no specific follow-up needed. Stomach is fluid-filled and borderline distended along with fluid distended small bowel loops suggestive of an ileus. Retained stool noted in the colon with scattered colonic diverticula particularly in the sigmoid colon without CT evidence of acute diverticulitis. Due to the extensive diverticular disease in the sigmoid and underlying lesion cannot be excluded though there is no clear evidence of caliber change. The appendix is visualized on coronal recon images 51 through 56 There is diffuse atherosclerotic calcification of the abdominal aorta, without a demonstrated aneurysm. Normal inferior vena cava. Normal retroperitoneum. Normal urinary bladder. Prostate is enlarged and there is a defect in the dorsal prostate suggesting previous TURP. There are prosthetic calcifications suggesting chronic prostatitis. There is a left-sided inguinal hernia containing adipose tissue. There are diffuse degenerative changes of the visualized lumbar spine, and pelvis. CT/Abdomen/Pelvis W IV Cont ONLY IMPRESSION: Stable 2 x 2.2 cm enhancing lesion in the upper pole of the right kidney still concerning for neoplasm but no change compared to recent CTs. Stable hepatic and renal cysts, no specific follow-up needed. Fatty liver, no suspicious enhancing lesion. Small bowel ileus Chronic diverticulosis without CT evidence of acute diverticulitis Normal appendix visualized No free intraperitoneal fluid, air, or suspicious adenopathy Overall, no significant interval change Electronically Signed: Gene Miller MD at 15:29 EST ,
[2023-07-27 14:35] LABS: CREATININE FINGERSTICK 1.2 mg/dL (0.70-1.30); EGFR FINGERSTICK > 60.0000 mL/min (>60)
== END | disposition home or self-care (01) ==
LOC: CT 14:06
PROVIDERS: PCP Internal Medicine; Referring Provider Urology; Visit Provider Urology
DX: D41.01 Neoplasm of uncertain behavior of right kidney (principal)
CPT/HCPCS: 74177

== ENCOUNTER → 2023-09-26 | Outpatient (CLI) | payer MEDICARE, SELFPAY ==
[2023-09-28 08:11] LABS: Lamotrigine (Lamictal) Level 2.1 ug/mL (2.0-20.0)
== END | disposition home or self-care (01) ==
PROVIDERS: PCP Internal Medicine; Referring Provider Psychiatry & Neurology Neurology; Visit Provider Psychiatry & Neurology Neurology
DX: G40.909 Epilepsy, unspecified, not intractable, without status epilepticus (principal)
CPT/HCPCS: 36415; 82140; 82542

== ENCOUNTER → 2024-07-13 | Outpatient (CLI) | payer MEDICARE, SELFPAY ==
--- NOTE | 2024-07-13 07:58 | CDU_ITS ---
Reason For Study Reason For Study: Bilateral Carotid Stenosis Rt. Velocities/BP Lt. Velocities/BP Prox CCA 59/8 cm/sec. Prox CCA 70/8 cm/sec. Mid CCA 49/10 cm/sec. Mid CCA 63/9 cm/sec. Dist CCA 48/10 cm/sec. Dist CCA 57/8 cm/sec. Prox ICA 50/11 cm/sec. Prox ICA 57/14 cm/sec. Mid ICA 58/12 cm/sec. Mid ICA 51/13 cm/sec. Dist ICA 72/14 cm/sec. Dist ICA 56/15 cm/sec. Rt. ICA/CCA = 1.5. Lt. ICA/CCA = 0.9. Prox ECA 58/5 cm/sec. Prox ECA 97/8 cm/sec. Rt. Vert. 32/8 cm/sec. Lt. Vert. 48/7 cm/sec. Right Extracranial There is intimal thickening but no significant atherosclerotic plaque noted in the right common carotid artery. There is heterogeneous, irregular atherosclerotic plaque noted in the right internal carotid artery. There is intimal thickening but no significant atherosclerotic plaque noted in the right external carotid artery. Antegrade flow is noted in the right vertebral artery. Left Extracranial There is heterogeneous, irregular atherosclerotic plaque noted in the left common carotid artery. There is heterogeneous, irregular atherosclerotic plaque noted in the left internal carotid artery. There is intimal thickening but no significant atherosclerotic plaque noted in the left external carotid artery. Antegrade flow is noted in the left vertebral artery. Procedure Carotid Duplex [id number]. This is a Carotid Duplex examination using B-mode, color flow and specral Doppler. Exam performed in department. VL/Carotid Duplex Ultrasound Interpretation Summary Mild (<50%) stenosis right extracranial internal carotid. Mild (<50%) stenosis left extracranial internal carotid. Patent and antegrade vertebrals bilaterally. Ordering Physician: Brittany Combs Referring Physician: Brittany Combs Performed By: Dian Sullivan, RDCS, RVT
== END | disposition home or self-care (01) ==
LOC: CVS 07:53
PROVIDERS: PCP Internal Medicine; Referring Provider Internal Medicine; Visit Provider Internal Medicine
DX: I65.23 Occlusion and stenosis of bilateral carotid arteries (principal)
CPT/HCPCS: 93880

== ENCOUNTER → 2024-08-27 | Outpatient (CLI) | payer MEDICARE, SELFPAY ==
[2024-08-27 10:52] LABS: Ammonia 22.9 umol/L (16-60)
[2024-08-29 15:08] LABS: Lamotrigine (Lamictal) Level 3.5 ug/mL (2.0-20.0)
== END | disposition home or self-care (01) ==
LOC: MTLAB 08:04
PROVIDERS: PCP Internal Medicine; Referring Provider Psychiatry & Neurology Neurology; Visit Provider Psychiatry & Neurology Neurology
DX: G40.909 Epilepsy, unspecified, not intractable, without status epilepticus (principal)
CPT/HCPCS: 36415; 82140; 82542

== ENCOUNTER → 2024-10-05 | Outpatient (CLI) | payer MEDICARE, SELFPAY ==
--- NOTE | 2024-10-05 07:55 | CT_ITS ---
PROCEDURE: ABDOMEN/PELVIS WITH CONTRAST 10/05/2024 REASON FOR EXAM: KIDNEY CA TECHNIQUE: Abdomen and pelvis CT with intravenous contrast. Coronal and Sagittal reconstruction series were provided. One or more dose reduction techniques were used (e.g., Automated exposure control, adjustment of the mA and/or kV according to patient size, use of iterative reconstruction technique. RADIATION DOSE SUMMARY: CTDlvol: mGy DLP: mGycm COMPARISON: 07-27-2023 FINDINGS: Stable right renal upper pole enhancing mass 2 x 2.2 cm. Both kidneys are of average size and showing smooth outline with preserved parenchymal thickness. No renal calculi. No hydronephrosis. Bilateral renal hypodense cortical cysts, the largest seen along the left renal lower pole showing faint eccentric calcification and measuring 4.5 cm. perinephric fat stranding. Distension of the urinary bladder showing minimal uniform mural thickening with no obvious masses. Enlarged prostate. Average sized liver showing homogenous parenchymal attenuation with stable left hepatic lobe cyst. No dilated intra or extra-hepatic biliary tracts. Cholecystectomy clips. Clear surrounding fat planes with no sizeable collections. Normal appearance of the pancreas with clear surrounding fat planes. The spleen, adrenal glands and IVC are unremarkable. Aortoiliac atheromatous calcifications. Colonic diverticulosis. No diverticulitis. The & small bowel loops are unremarkable. The stomach is unremarkable. Small fat containing left inguinal hernia. No ascites or free air. No obvious pathologically enlarged lymph nodes. Scanned osseous structures show no osseous destruction. Thoracolumbar spondylosis. Scanned lung bases show basal atelectatic changes. CT/Abdomen/Pelvis WITH Contrast IMPRESSION: IMPRESSION: Stable study findings as detailed. No obvious acute pelvi-abdominal abnormalities, collections or free air. OVERALL FINAL ASSESSMENT: . LI-RADS is not meant to be used in patients <18 years or patients with cirrhosi s due to congenital hepatic fibrosis or due to vascular disorders, because these patients have a lower chance of developing HC C. Reading [facility]
== END | disposition home or self-care (01) ==
LOC: CT 07:48
PROVIDERS: PCP Internal Medicine; Referring Provider Nurse Practitioner; Visit Provider Nurse Practitioner
DX: Z01.812 Encounter for preprocedural laboratory examination (principal); D41.01 Neoplasm of uncertain behavior of right kidney
CPT/HCPCS: 74177; Q9967; A4216